=== PATIENT | female | born 1940 | race Caucasian/White ===

== ENCOUNTER 2024-02-13 15:49 | Observation (INO) ==
[2024-02-13 16:48] LABS: Basophils # (auto) 0.07 K/uL (0.00-0.20); Basophils % (auto) 0.9 %; Eosinophils # (auto) 0.18 K/uL (0.00-0.50); Eosinophils % (auto) 2.4 %; Hematocrit (blood only) 42.5 % (37.0-47.0); Hemoglobin 14.6 g/dl (12.0-16.0); Immature Granulocytes # (auto) 0.02 K/uL (0.01-0.20); Immature Granulocytes % (auto) 0.3 %; Lymphocytes # (auto) 2.37 K/uL (1.20-3.40); Mean Corpuscular Hemoglobin 29.5 pg (25.0-34.0); Mean Corpuscular Hgb Conc 34.4 g/dL (32.0-36.0); Mean Corpuscular Volume 85.9 fL (80.0-100.0); Mean Platelet Volume 9.6 fL (9.4-12.4); Monocytes # (auto) 0.55 K/uL (0.11-0.59); Monocytes % (auto) 7.2 %; Neutrophils # (auto) 4.46 K/uL (1.40-6.50); Neutrophils % (auto) 58.2 %; Platelet Count 305 K/uL (130-400); RDW Coefficient of Variation 13.2 % (11.5-14.5); RDW Standard Deviation 41.1 fL (36.4-46.3); Red Blood Count 4.95 M/uL (4.20-5.40); White Blood Count 7.65 K/ul (4.8-10.8)
--- NOTE | 2024-02-13 16:56 | CT Scan Report ---
CT head/brain wo con CLINICAL HISTORY: ams Technique: Contiguous axial CT images of the head were acquired from the base of the skull to the jacky elham without intravenous contrast administration. Images were viewed in brain, subdural and bone [facility]. Automated dose lowering techniques and/or adjustment according to patient size were utilized for this exam. Comparison: None available at the time of this dictation. Findings: The ventricles, basal cisterns, and cerebral sulci are normal. There is no acute intracranial hemorrh age or evidence of acute territorial infarction. Neither mass effect, shift of the midline structures , nor abnormal extra-axial fluid collections are shown. Imaged portions of the paranasal sinuses and mastoid air cells are clear. The orbits appear normal. There are no acute fractures of the calvaria or scalp swelling. Impression: No acute intracranial hemorrhage, no evidence of acute territorial infarction or other acute intracra nial disease process. ACT 112: Negative or not required by law. Electronically signed by: Saleem Prabhakar M.D. 02/13/2024 4:55 PM
[2024-02-13 17:15] LABS: Partial Thromboplastin Time 27 Seconds (21-31); Prothrombin Time 10.9 Seconds (9.0-12.0)
[2024-02-13 17:16] LABS: Troponin I High Sensitivity 3.4 pg/ml (0-14)
[2024-02-13 17:17] LABS: Albumin Level 3.9 gm/dl (3.4-5.0); BUN Creatinine Ratio 24.7 (10-20); Bilirubin,Total 0.6 mg/dl (0.2-1.0); Calcium 9.6 mg/dl (8.6-10.3); Creatinine Clr Calc Pharmacy 48.4 ml/min; Est GFR (African American) 72.4 ml/min; Est GFR (Non-African American) 62.5 ml/min; Potassium 4.2 mmol/L (3.5-5.1); Total Protein 6.5 gm/dl (6.0-8.3)
[2024-02-13 17:24] LABS: Bilirubin Direct 0.1 mg/dl (0-0.2)
--- NOTE | 2024-02-13 17:36 | XRay Report ---
XR chest 1V portable CLINICAL HISTORY: Sepsis TECHNIQUE: Single frontal radiograph of the chest was obtained. Comparison: Comparison is made to chest radiograph 12/23/2021 FINDINGS: No lines and tubes are seen. The cardiomediastinal silhouette is normal. The lungs are clear. No evid ence of pleural effusion or pneumothorax. IMPRESSION: No acute abnormalities and in particular no radiographic evidence of pneumonia. ACT 112: Negative or not required by law. Electronically signed by: Saleem Prabhakar M.D. 02/13/2024 5:35 PM
[2024-02-13 17:51] LABS: Base Excess VBG 4.8 mEq/L; HCO3 VBG 30 mmol/L; Oxygen Saturation VBG < 60.0 %; PCO2 VBG 48 mmHg (38-50); PO2 VBG < 20 mmHg; pH VBG 7.41 (7.36-7.41)
[2024-02-13 18:25] LABS: Appearance Urine Clear (Clear); Bacteria Urine Automated 4+ (None Seen); Bilirubin Urine Negative (Negative); Blood Urine Negative (Negative); Cast Urine Automated 0-2 /lpf (0-2); Color Urine Yellow; Epithelial Cell Urine Auto 0-2 /hpf (0-2); Glucose Urine UA 1+ (Negative); Ketones Urine Negative (Negative); Leukocyte Esterase Urine 1+ (Negative); Nitrite Urine Positive (Negative); Protein Urine Negative (Negative); RBC Urine Automated 0-2 /hpf (0-2); Specific Gravity Urine 1.013 (1.000-1.030); Urobilinogen Urine Negative (Negative); WBC Urine Automated >50 /hpf (0-5); pH Urine 8.5 (4.5-7.5)
[2024-02-13] MEDS: cefTRIAXone SODIUM 2,000 MG/50 ML BAG IV STA (19:10)
[2024-02-13] MEDS: LORazepam 1 MG/1 ML SYR ED Inj Use ONE (19:56)
[2024-02-13] MEDS ORDERED: HALOPERIDOL LACTATE 5 MG/ML 1 ML VIAL IM PRN ×2 (20:12→21:42)
[2024-02-13] MEDS: HALOPERIDOL LACTATE 5 MG/ML 1 ML VIAL IM STA ×2 (20:24→21:09)
[2024-02-13] MEDS: LORazepam 2 MG/1 ML VIAL IM STA ×2 (20:27→21:08)
--- NOTE | 2024-02-13 21:13 | History & Physical Report ---
Date of Service February 13, 2024 Assessment & Plan (1) Delirium: Plan: Possible beginning dementia as per family Secondary to complicated UTI, no sepsis for now hypertension, elevated secondary to agitation hyperlipidemia, on statin Rx DM2 on oral medications, suboptimal control as of recent outpatient hemoglobin A1c of 13 this month Admit to medical telemetry Urine CS, ceftriaxone Haldol as needed agitation not responsive to behavioral management Basal insulin, ISS BG goal 1 10-1 40, carb count coverage PT OT eval DVT prophylaxis. SCDs DNR as per patient's prior directives as per son /POA, Mr. Sanam Joyce. He requests updates from providers through [phone]. Text document was generated using [employer] voice recognition software. It may contain grammatical or spelling errors. Kindly contact undersigned for clarification of any documentation item in question. History of Present Illness Chief Complaint: Confusion as per records Primary Care Provider: Savana Ogden PA-C History obtained from patient, family, and records. Limited history from patient secondary to agitation. Medical history significant for hypertension, hyperlipidemia, GERD, DM2 on oral medications, possible dementia as per family. Patient drove to PCPs office multiple times this week asking questions and looking confused. Complaining of headache symptoms as per outpatient notes. Patient directed to ER for evaluation. Patient unable to answer questions regarding chest pain, SOB, abdominal, flank pain due to increased agitation. IV ceftriaxone administered at the ER Medical History as above Surgical History : Breast lesion excision, cholecystectomy, BTL, tonsillectomy Family History : Breast cancer, DM, COPD, kidney cancer, stomach cancer Personal/Social history : Non-smoker, occasional EtOH intake, lives home with caregiver support Allergies Allergy/AdvReac Type Severity Reaction Status Date / Time ranitidine Allergy Intermediate Rash Verified 02/13/24 17:57 sulfamethoxazole Allergy Intermediate Rash Verified 02/13/24 17:57 [From Bactrim] trimethoprim [From Bactrim] Allergy Intermediate Rash Verified 02/13/24 17:57 mold Allergy Unknown Unknown Verified 02/13/24 17:57 pine nut Allergy Unknown Unknown Verified 02/13/24 17:57 atorvastatin AdvReac Intermediate BODY Verified 02/13/24 17:57 ACHES/NAUSEA empagliflozin AdvReac Intermediate Rash Verified 02/13/24 17:57 [From Jardiance] sitagliptin [From Januvia] AdvReac Intermediate Rash Verified 02/13/24 17:57 simvastatin AdvReac Unknown BODY Verified 02/13/24 17:57 ACHES/NAUSEA Home Medications Medication Instructions Recorded Confirmed Type lactobacillus combination no.4 3 3,000 mmu cells PO QAM 11/18/18 02/13/24 History billion cell capsule (Probiotic) metformin 500 mg tablet,extended 1,000 mg PO QAM 11/18/18 02/13/24 History release 24 hr multivitamin (Multiple Vitamins 1 tab PO QAM 11/18/18 02/13/24 History tablet) omega 3 350 mg-dha 235 mg-epa 90 1 cap PO QAM 11/18/18 02/13/24 History mg-fish oil 597 mg capsule,delay rel (Clive-3) omeprazole 20 mg capsule,delayed 20 mg PO DAILY 11/18/18 02/13/24 History release rosuvastatin 20 mg tablet 20 mg PO QAM 11/18/18 02/13/24 History aspirin 81 mg tablet,delayed 81 mg PO DAILY 12/23/21 02/13/24 History release insulin glargine 100 unit/mL (3 10 unit subcut HS 12/23/21 02/13/24 History mL) subcutaneous pen (Lantus Solostar U-100 Insulin) calcium carbonate 600 mg-vitamin 1 tab PO DAILY 02/13/24 02/13/24 History D3 5 mcg (200 unit) tablet (Calcium 600 + D(3)) cetirizine 10 mg tablet (Zyrtec) 10 mg PO QAM 02/13/24 02/13/24 History clotrimazole 1 % topical cream 1 applic topical BID PRN Skin 02/13/24 02/13/24 History Irritation dapagliflozin propanediol 10 mg 10 mg PO QAM 02/13/24 02/13/24 History tablet (Farxiga) metoprolol tartrate 25 mg tablet 25 mg PO QAM 02/13/24 02/13/24 History triamcinolone acetonide 0.1 % 1 applic topical BID PRN Skin 02/13/24 02/13/24 History topical cream Irritation Past Med/Surg History Problem List (Updated 02/14/24 @ 08:51 by Jonny Brandon MD) Delirium Altered mental status (Acute) COVID-19 (Acute) Medical History No pertinent family history HTN (hypertension) Diabetes Arthritis Surgical History No pertinent past surgical history Family History Other Diabetes Heart disease Hypertension Social History Smoking Status: Never smoker Hx Alcohol Use: Yes Alcohol type: beer Hx Substance Use: No Preferred Language: Andorran Communication Ability: Effective Material Handling Technician Required: No Beliefs That Will Affect Care: None Current Living Situation: Alone Current Living Situation Comment: allegedly at home Feels Safe at Home: Yes Safety Concerns: Feels Safe At This Time Assistive Devices: Glasses Assistive Devices Comment: reading glasses Review of Systems Review of Systems: Could not be reliably obtained secondary to agitated state Physical Exam Physical Exam: GENERAL: Agitated, no respiratory distress SKIN: Normal color, warm HEENT: Sunshine palpebral conjunctivae, no ptosis, dry buccal mucosa NECK : Supple, no tenderness CHEST : CTA, no tenderness HEART : RRR, no obvious murmurs ABDOMEN: Some distention, nontender EXTREMITIES : No LE swelling/tenderness, no other conspicuous deformities noted NEUROLOGIC : Agitated, no facial asymmetry, no other gross focality Results & Data Results & Data Vital Signs (Past 12 Hours) Vital Signs Temp Pulse Pulse Resp BP BP Pulse Ox 02/13/24 21:00 101 H 19 163/92 H 93 02/13/24 19:30 70 20 153/87 H 97 02/13/24 18:16 156/84 H 02/13/24 17:48 20 99 02/13/24 17:45 137/103 H 02/13/24 17:45 97 02/13/24 17:42 97 02/13/24 17:33 66 23 95 02/13/24 17:30 157/103 H 02/13/24 17:12 72 20 02/13/24 17:09 68 19 02/13/24 16:54 71 23 02/13/24 16:44 72 20 154/78 H 98 02/13/24 16:44 75 19 98 02/13/24 16:36 71 17 02/13/24 16:30 154/78 H 02/13/24 16:15 151/77 H 02/13/24 16:12 71 17 98 02/13/24 16:03 70 16 98 02/13/24 16:00 68 02/13/24 16:00 168/88 H 02/13/24 16:00 168/88 H 02/13/24 15:57 72 20 168/88 H 98 02/13/24 15:57 98 02/13/24 15:53 36.5 C 95 H 18 154/100 H 98 O2 Del Method 02/13/24 21:00 Room Air 02/13/24 19:30 Room Air 02/13/24 18:16 02/13/24 17:48 02/13/24 17:45 02/13/24 17:45 02/13/24 17:42 02/13/24 17:33 02/13/24 17:30 02/13/24 17:12 02/13/24 17:09 02/13/24 16:54 02/13/24 16:44 Room Air 02/13/24 16:44 Room Air 02/13/24 16:36 02/13/24 16:30 02/13/24 16:15 02/13/24 16:12 02/13/24 16:03 02/13/24 16:00 02/13/24 16:00 02/13/24 16:00 02/13/24 15:57 Room Air 02/13/24 15:57 Room Air 02/13/24 15:53 Room Air Laboratory Results Laboratory Results WBC 7.65 K/ul (4.8-10.8) 02/13/24 16:25 RBC 4.95 M/uL (4.20-5.40) 02/13/24 16:25 Hgb 14.6 g/dl (12.0-16.0) 02/13/24 16:25 Hct 42.5 % (37.0-47.0) 02/13/24 16:25 MCV 85.9 fL (80.0-100.0) 02/13/24 16:25 MCH 29.5 pg (25.0-34.0) 02/13/24 16:25 MCHC 34.4 g/dL (32.0-36.0) 02/13/24 16:25 RDW Std Deviation 41.1 fL (36.4-46.3) 02/13/24 16:25 RDW Coeff of Jaswant 13.2 % (11.5-14.5) 02/13/24 16:25 Plt Count 305 K/uL (130-400) 02/13/24 16:25 MPV 9.6 fL (9.4-12.4) 02/13/24 16:25 Immature Gran % (Auto) 0.3 % 02/13/24 16:25 Neut % (Auto) 58.2 % 02/13/24 16:25 Lymph % (Auto) 31.0 % 02/13/24 16:25 [place] % (Auto) 7.2 % 02/13/24 16:25 Eos % (Auto) 2.4 % 02/13/24 16:25 Baso % (Auto) 0.9 % 02/13/24 16:25 Neut # (Auto) 4.46 K/uL (1.40-6.50) 02/13/24 16:25 Lymph # (Auto) 2.37 K/uL (1.20-3.40) 02/13/24 16:25 [place]house # (Auto) 0.55 K/uL (0.11-0.59) 02/13/24 16:25 Eos # (Auto) 0.18 K/uL (0.00-0.50) 02/13/24 16:25 Baso # (Auto) 0.07 K/uL (0.00-0.20) 02/13/24 16:25 Immature Gran # (Auto) 0.02 K/uL (0.01-0.20) 02/13/24 16:25 PT 10.9 Seconds (9.0-12.0) 02/13/24 16:25 INR 1.0 (0.9-1.1) 02/13/24 16: APTT 27 Seconds (21-31) 02/13/24 16: PTT Ratio 1.0 02/13/24 16: VBG pH 7.41 (7.36-7.41) 02/13/24 17: VBG pCO2 48 mmHg (38-50) 02/13/24 17: VBG pO2 < 20 mmHg 02/13/24 17: VBG HCO3 30 mmol/L 02/13/24 17:26 VBG O2 Saturation < 60.0 % 02/13/24 17:26 VBG Base Excess 4.8 mEq/L 02/13/24 17:26 Sodium 138 mmol/L (136-145) 02/13/24 16:25 Potassium 4.2 mmol/L (3.5-5.1) 02/13/24 16:25 Chloride 105 mmol/L (98-107) 02/13/24 16:25 Carbon Dioxide 26 mmol/L (21-32) 02/13/24 16:25 Anion Gap 7 (3-11) 02/13/24 16:25 BUN 21 mg/dl (6-23) 02/13/24 16:25 Creatinine 0.85 mg/dl (0.6-1.2) 02/13/24 16:25 Est Cr Clr Drug Dosing 48.4 ml/min 02/13/24 16:25 Est GFR ( Amer) 72.4 ml/min 02/13/24 16:25 Est GFR (Non-Af Amer) 62.5 ml/min 02/13/24 16:25 BUN/Creatinine Ratio 24.7 (10-20) H 02/13/24 16:25 Glucose 191 mg/dl (70-99(Fasting)) H 02/13/24 16:25 POC Glucose 164 mg/dl (70-99) H 02/13/24 16:18 Lactate 1.4 mmol/L (0.4-2.0) 02/13/24 17:26 Calcium 9.6 mg/dl (8.6-10.3) 02/13/24 16:25 Magnesium 2.0 mg/dl (1.7-2.4) 02/13/24 16:25 Total Bilirubin 0.6 mg/dl (0.2-1.0) 02/13/24 16:25 Direct Bilirubin 0.1 mg/dl (0-0.2) 02/13/24 16:25 AST 21 U/L (13-39) 02/13/24 16:25 ALT 21 U/L (7-52) 02/13/24 16:25 Alkaline Phosphatase 85 U/L (34-104) 02/13/24 16:25 Ammonia 11.0 umol/L (18-72) L 02/13/24 17:26 Troponin I High Sens 3.4 pg/ml (0-14) 02/13/24 16:25 Total Protein 6.5 gm/dl (6.0-8.3) 02/13/24 16:25 Albumin 3.9 gm/dl (3.4-5.0) 02/13/24 16:25 Procalcitonin 0.07 ng/ml (0-0.5) 02/13/24 16:25 Urine Color Yellow 02/13/24 18:05 Urine Appearance Clear (Clear) 02/13/24 18:05 Urine pH 8.5 (4.5-7.5) H 02/13/24 18:05 Ur Specific [place] 1.013 (1.000-1.030) 02/13/24 18:05 Urine Protein Negative (Negative) 02/13/24 18:05 Urine Glucose (UA) 1+ (Negative) H 02/13/24 18:05 Urine Ketones Negative (Negative) 02/13/24 18:05 Urine Blood Negative (Negative) 02/13/24 18:05 Urine Nitrite Positive (Negative) A 02/13/24 18:05 Urine Bilirubin Negative (Negative) 02/13/24 18:05 Urine Urobilinogen Negative (Negative) 02/13/24 18:05 Ur Leukocyte Esterase 1+ (Negative) H 02/13/24 18:05 Urine WBC (Auto) >50 /hpf (0-5) H 02/13/24 18:05 Urine RBC (Auto) 0-2 /hpf (0-2) 02/13/24 18:05 U Hyaline Cast (Auto) 0-2 /lpf (0-2) 02/13/24 18:05 U Epithel Cells (Auto) 0-2 /hpf (0-2) 02/13/24 18:05 Urine Bacteria (Auto) 4+ (None Seen) H 02/13/24 18:05 Impressions Chest X-Ray 02/13/24 16:31 XR chest 1V portable CLINICAL HISTORY: Sepsis TECHNIQUE: Single frontal radiograph of the chest was obtained. Comparison: Comparison is made to chest radiograph 12/23/2021 FINDINGS: No lines and tubes are seen. The cardiomediastinal silhouette is normal. The lungs are clear. No evidence of pleural effusion or pneumothorax. IMPRESSION: No acute abnormalities and in particular no radiographic evidence of pneumonia. ACT 112: Negative or not required by law. Electronically signed by: Saleem Prabhakar M.D. 02/13/2024 5:[address] 02/13/24 16:31 CT head/brain wo con CLINICAL HISTORY: ams Technique: Contiguous axial CT images of the head were acquired from the base of the skull to the vertex without intravenous contrast administration. Images were viewed in brain, subdural and bone windows. Automated dose lowering techniques and/or adjustment according to patient size were utilized for this exam. Comparison: None available at the time of this dictation. Findings: The ventricles, basal cisterns, and cerebral sulci are normal. There is no acute intracranial hemorrhage or evidence of acute territorial infarction. Neither mass effect, shift of the midline structures, nor abnormal extra-axial fluid collections are shown. Imaged portions of the paranasal sinuses and mastoid air cells are clear. The orbits appear normal. There are no acute fractures of the calvaria or scalp swelling. Impression: No acute intracranial hemorrhage, no evidence of acute territorial infarction or other acute intracranial disease process. ACT 112: Negative or not required by law. Electronically signed by: Saleem Prabhakar M.D. 02/13/2024 4:55 PM Diagnostic Findings EKG as per my interpretation : Rate 65, NSR, normal axis, 1 AVB, no ischemia
--- NOTE | 2024-02-13 21:17 | Emergency Department Note ---
History of Present Illness General Chief complaint: Altered Mental Status Stated complaint: ALTERED MENTAL STATUS Time Seen by Provider: 02/13/24 16:30 History of Present Illness Provider complaint: Altered mental status confusion 83-year-old female was brought in by from her PCPs office for altered mental status and confusion. Patient states she is not sure why she is here. Family arrived and states that the patient is confused and should not be driving. No recent falls. No chest pain difficulty breathing nausea vomiting or diarrhea. Home Medications Medication Instructions Recorded Confirmed Type lactobacillus combination no.4 3 3,000 mmu cells PO QAM 11/18/18 02/13/24 History billion cell capsule (Probiotic) metformin 500 mg tablet,extended 1,000 mg PO QAM 11/18/18 02/13/24 History release 24 hr multivitamin (Multiple Vitamins 1 tab PO QAM 11/18/18 02/13/24 History tablet) omega 3 350 mg-dha 235 mg-epa 90 1 cap PO QAM 11/18/18 02/13/24 History mg-fish oil 597 mg capsule,delay rel (Bryan-3) omeprazole 20 mg capsule,delayed 20 mg PO DAILY 11/18/18 02/13/24 History release rosuvastatin 20 mg tablet 20 mg PO QAM 11/18/18 02/13/24 History aspirin 81 mg tablet,delayed 81 mg PO DAILY 12/23/21 02/13/24 History release insulin glargine 100 unit/mL (3 10 unit subcut HS 12/23/21 02/13/24 History mL) subcutaneous pen (Lantus Solostar U-100 Insulin) calcium carbonate 600 mg-vitamin 1 tab PO DAILY 02/13/24 02/13/24 History D3 5 mcg (200 unit) tablet (Calcium 600 + D(3)) cetirizine 10 mg tablet (Zyrtec) 10 mg PO QAM 02/13/24 02/13/24 History clotrimazole 1 % topical cream 1 applic topical BID PRN Skin 02/13/24 02/13/24 History Irritation dapagliflozin propanediol 10 mg 10 mg PO QAM 02/13/24 02/13/24 History tablet (Farxiga) metoprolol tartrate 25 mg tablet 25 mg PO QAM 02/13/24 02/13/24 History triamcinolone acetonide 0.1 % 1 applic topical BID PRN Skin 02/13/24 02/13/24 History topical cream Irritation Allergies Allergy/AdvReac Type Severity Reaction Status Date / Time ranitidine Allergy Intermediate Rash Verified 02/13/24 17:57 sulfamethoxazole Allergy Intermediate Rash Verified 02/13/24 17:57 [From Bactrim] trimethoprim [From Bactrim] Allergy Intermediate Rash Verified 02/13/24 17:57 mold Allergy Unknown Unknown Verified 02/13/24 17:57 pine nut Allergy Unknown Unknown Verified 02/13/24 17:57 atorvastatin AdvReac Intermediate BODY Verified 02/13/24 17:57 ACHES/NAUSEA empagliflozin AdvReac Intermediate Rash Verified 02/13/24 17:57 [From Jardiance] sitagliptin [From Januvia] AdvReac Intermediate Rash Verified 02/13/24 17:57 simvastatin AdvReac Unknown BODY Verified 02/13/24 17:57 ACHES/NAUSEA Past Med/Surg History Problem List (Updated 02/13/24 @ 21:22 by Cayden Herrmann MD) Altered mental status (Acute) COVID-19 (Acute) Medical History No pertinent family history HTN (hypertension) Diabetes Arthritis Surgical History No pertinent past surgical history Family History Other Diabetes Heart disease Hypertension Social History Smoking Status: Unknown if ever smoked Feels Safe at Home: Yes Physical Exam Vital Signs Vital Signs - 24 hr 02/13/24 15:53 02/13/24 15:57 02/13/24 15:57 Temperature 36.5 C Temperature Source Oral Pulse Rate 95 H Pulse Rate [Apical] 72 Pulse Rate from SpO2 Sensor Respiratory Rate 18 20 Respiratory Effort / Characteristics Non-Labored Spontaneous Non-Labored Spontaneous Respiratory Depth Normal Normal Respiratory Pattern Regular Regular Blood Pressure 154/100 H Blood Pressure [Left Arm] 168/88 H Blood Pressure Mean 118 Blood Pressure Mean [Left Arm] 114 Pulse Oximetry 98 98 98 Oxygen Delivery Method Room Air Room Air Room Air Sepsis Recent Fever Within 48 Hours No Sepsis New/Unexplained Change in Mental Status Yes Sepsis Action Taken by Nursing No Action Required 02/13/24 16:00 02/13/24 16:00 02/13/24 16:00 Temperature Temperature Source Pulse Rate 68 Pulse Rate [Apical] Pulse Rate from SpO2 Sensor Respiratory Rate Respiratory Effort / Characteristics Respiratory Depth Respiratory Pattern Blood Pressure 168/88 H 168/88 H Blood Pressure [Left Arm] Blood Pressure Mean 121 121 Blood Pressure Mean [Left Arm] Pulse Oximetry Oxygen Delivery Method Sepsis Recent Fever Within 48 Hours Sepsis New/Unexplained Change in Mental Status Sepsis Action Taken by Nursing 02/13/24 16:03 02/13/24 16:12 02/13/24 16:15 Temperature Temperature Source Pulse Rate 70 71 Pulse Rate [Apical] Pulse Rate from SpO2 Sensor 72 71 Respiratory Rate 16 17 Respiratory Effort / Characteristics Respiratory Depth Respiratory Pattern Blood Pressure 151/77 H Blood Pressure [Left Arm] Blood Pressure Mean 99 Blood Pressure Mean [Left Arm] Pulse Oximetry 98 98 Oxygen Delivery Method Sepsis Recent Fever Within 48 Hours Sepsis New/Unexplained Change in Mental Status Sepsis Action Taken by Nursing 02/13/24 16:30 02/13/24 16:36 02/13/24 16:44 Temperature Temperature Source Pulse Rate 71 75 Pulse Rate [Apical] Pulse Rate from SpO2 Sensor Respiratory Rate 17 19 Respiratory Effort / Characteristics Respiratory Depth Respiratory Pattern Blood Pressure 154/78 H Blood Pressure [Left Arm] Blood Pressure Mean 107 Blood Pressure Mean [Left Arm] Pulse Oximetry 98 Oxygen Delivery Method Room Air Sepsis Recent Fever Within 48 Hours Sepsis New/Unexplained Change in Mental Status Sepsis Action Taken by Nursing 02/13/24 16:44 02/13/24 16:54 02/13/24 17:09 Temperature Temperature Source Pulse Rate 71 68 Pulse Rate [Apical] 72 Pulse Rate from SpO2 Sensor Respiratory Rate 20 23 19 Respiratory Effort / Characteristics Non-Labored Spontaneous Respiratory Depth Normal Respiratory Pattern Regular Blood Pressure Blood Pressure [Left Arm] 154/78 H Blood Pressure Mean Blood Pressure Mean [Left Arm] 103 Pulse Oximetry 98 Oxygen Delivery Method Room Air Sepsis Recent Fever Within 48 Hours Sepsis New/Unexplained Change in Mental Status Sepsis Action Taken by Nursing 02/13/24 17:12 02/13/24 17:30 02/13/24 17:33 Temperature Temperature Source Pulse Rate 72 66 Pulse Rate [Apical] Pulse Rate from SpO2 Sensor 66 Respiratory Rate 20 23 Respiratory Effort / Characteristics Respiratory Depth Respiratory Pattern Blood Pressure 157/103 H Blood Pressure [Left Arm] Blood Pressure Mean 144 Blood Pressure Mean [Left Arm] Pulse Oximetry 95 Oxygen Delivery Method Sepsis Recent Fever Within 48 Hours Sepsis New/Unexplained Change in Mental Status Sepsis Action Taken by Nursing 02/13/24 17:42 02/13/24 17:45 02/13/24 17:45 Temperature Temperature Source Pulse Rate Pulse Rate [Apical] Pulse Rate from SpO2 Sensor 70 62 Respiratory Rate Respiratory Effort / Characteristics Respiratory Depth Respiratory Pattern Blood Pressure 137/103 H Blood Pressure [Left Arm] Blood Pressure Mean 112 Blood Pressure Mean [Left Arm] Pulse Oximetry 97 97 Oxygen Delivery Method Sepsis Recent Fever Within 48 Hours Sepsis New/Unexplained Change in Mental Status Sepsis Action Taken by Nursing 02/13/24 17:48 02/13/24 18:16 02/13/24 19:30 Temperature Temperature Source Pulse Rate Pulse Rate [Apical] 70 Pulse Rate from SpO2 Sensor 70 Respiratory Rate 20 20 Respiratory Effort / Characteristics Non-Labored Respiratory Depth Normal Respiratory Pattern Regular Blood Pressure 156/84 H Blood Pressure [Left Arm] 153/87 H Blood Pressure Mean 125 Blood Pressure Mean [Left Arm] 109 Pulse Oximetry 99 97 Oxygen Delivery Method Room Air Sepsis Recent Fever Within 48 Hours Sepsis New/Unexplained Change in Mental Status Sepsis Action Taken by Nursing 02/13/24 21:00 Temperature Temperature Source Pulse Rate Pulse Rate [Apical] 101 H Pulse Rate from SpO2 Sensor Respiratory Rate 19 Respiratory Effort / Characteristics Respiratory Depth Respiratory Pattern Blood Pressure Blood Pressure [Left Arm] 163/92 H Blood Pressure Mean Blood Pressure Mean [Left Arm] 115 Pulse Oximetry 93 Oxygen Delivery Method Room Air Sepsis Recent Fever Within 48 Hours Sepsis New/Unexplained Change in Mental Status Sepsis Action Taken by Nursing Physical Exam HENT: Exam performed. - Head: Normocephalic and atraumatic. EYES: Conjunctivae and EOM are normal. Right eye exhibits no discharge. Left eye exhibits no discharge. No scleral icterus. NECK: Normal range of motion. Neck supple. No JVD present. CV: Normal rate, regular rhythm, normal heart sounds and intact distal pulses. There is no peripheral edema. Palpable radial pulses bue. PULM/CHEST: Effort normal and breath sounds normal. No respiratory distress. No stridor. no wheezes. no rales. ABD: The abdomen is soft. There is no tenderness. NEURO: Motor and sensation grossly intact. Patient is not oriented to person place or time. SKIN: Skin is warm and dry. He is not diaphoretic. Course Course 1630: The patient was evaluated in room C9. A complete history and physical exam was performed 184: Vital signs stable. Patient medically cleared. manager balance Raymond met with family friends who are at bedside. See his note. There is thought that the patient will be best served to be admitted for possible placement. [facility] Patient becoming increasingly agitated. Ativan ordered for the patient. Dr. Haley will be in shortly to evaluate the patient Administered Medications Discontinued Medications Haloperidol Lactate (Haloperidol Lactate 5 Mg/Ml 1 Ml Vial) 2 mg IM NOW STA Stop: 02/13/24 20:13 Last Admin: 02/13/24 20:24 Dose: 2 mg Documented By: SVETLANA Haloperidol Lactate (Haloperidol Lactate 5 Mg/Ml 1 Ml Vial) 2 mg IM NOW STA Stop: 02/13/24 21:02 Last Admin: 02/13/24 21:09 Dose: 2 mg Documented By: SVETLANA Ceftriaxone Sodium (Rocephin) 2,000 mg in 50 mls @ 100 mls/hr IV NOW STA Stop: 02/13/24 19:11 Last Infusion: 02/13/24 19:30 Dose: Infused Documented By: Admin: 02/13/24 19:10 Dose: 100 mls/hr Documented By: STUART Lorazepam (Lorazepam 2 Mg/1 Ml Vial) 1 mg IM NOW STA Stop: 02/13/24 19:52 Last Admin: 02/13/24 20:27 Dose: Not Given Documented By: SVETLANA Lorazepam (Lorazepam 1 Mg/1 Ml Syr Ed Inj Use) Confirm Administered Dose 1 mg .ROUTE .STK-MED ONE Stop: 02/13/24 19:54 Last Admin: 02/13/24 19:56 Dose: 1 mg Documented By: SVETLANA Lorazepam (Lorazepam 2 Mg/1 Ml Vial) 1 mg IM NOW STA Stop: 02/13/24 20:00 Last Admin: 02/13/24 21:08 Dose: Not Given Documented By: SVETLANA Medical Decision Making Medical Records Attestation: I reviewed the patient's medical records. External medical records reviewed. Patient was seen by Wayne Melchor today. According to his note patient has been coming more frequently and asking a lot of questions she was not know what day it was a month what month was she scored a 19 on an MMSE she did not know who the president was. According to his note the patient was disheveled. According to his note the patient referred to him as a "dumbass today" which his note refers to is as "unusual for her" Laboratory Data Attestation: I reviewed the patient's lab results. 02/13/24 16:25 02/13/24 16:25 Lab Results 02/13/24 02/13/24 02/13/24 Range/Units 16:18 16:25 17:26 WBC 7.65 (4.8-10.8) K/ul RBC 4.95 (4.20-5.40) M/uL Hgb 14.6 (12.0-16.0) g/dl Hct 42.5 (37.0-47.0) % MCV 85.9 (80.0-100.0) fL MCH 29.5 (25.0-34.0) pg MCHC 34.4 (32.0-36.0) g/dL RDW Std Deviation 41.1 (36.4-46.3) fL RDW Coeff of Jaswant 13.2 (11.5-14.5) % Plt Count 305 (130-400) K/uL MPV 9.6 (9.4-12.4) fL Immature Gran % (Auto) 0.3 % Neut % (Auto) 58.2 % Lymph % (Auto) 31.0 % [place] % (Auto) 7.2 % Eos % (Auto) 2.4 % Baso % (Auto) 0.9 % Neut # (Auto) 4.46 (1.40-6.50) K/uL Lymph # (Auto) 2.37 (1.20-3.40) K/uL [place] # (Auto) 0.55 (0.11-0.59) K/uL Eos # (Auto) 0.18 (0.00-0.50) K/uL Baso # (Auto) 0.07 (0.00-0.20) K/uL Immature Gran # (Auto) 0.02 (0.01-0.20) K/uL PT 10.9 (9.0-12.0) Seconds INR 1.0 (0.9-1.1) APTT 27 (21-31) Seconds PTT Ratio 1.0 VBG pH 7.41 (7.36-7.41) VBG pCO2 48 (38-50) mmHg VBG pO2 < 20 mmHg VBG HCO3 30 mmol/L VBG O2 Saturation < 60.0 % VBG Base Excess 4.8 mEq/L Sodium 138 (136-145) mmol/L Potassium 4.2 (3.5-5.1) mmol/L Chloride 105 (98-107) mmol/L Carbon Dioxide 26 (21-32) mmol/L Anion Gap 7 (3-11) BUN 21 (6-23) mg/dl Creatinine 0.85 (0.6-1.2) mg/dl Est Cr Clr Drug Dosing 48.4 ml/min Est GFR ( Amer) 72.4 ml/min Est GFR (Non-Af Amer) 62.5 ml/min BUN/Creatinine Ratio 24.7 H (10-20) Glucose 191 H (70-99(Fasting)) mg/dl POC Glucose 164 H (70-99) mg/dl Lactate 1.4 (0.4-2.0) mmol/L Calcium 9.6 (8.6-10.3) mg/dl Magnesium 2.0 (1.7-2.4) mg/dl Total Bilirubin 0.6 (0.2-1.0) mg/dl Direct Bilirubin 0.1 (0-0.2) mg/dl AST 21 (13-39) U/L ALT 21 (7-52) U/L Alkaline Phosphatase 85 (34-104) U/L Ammonia 11.0 L (18-72) umol/L Troponin I High Sens 3.4 (0-14) pg/ml Total Protein 6.5 (6.0-8.3) gm/dl Albumin 3.9 (3.4-5.0) gm/dl Procalcitonin 0.07 (0-0.5) ng/ml Urine Color Urine Appearance (Clear) Urine pH (4.5-7.5) Ur Specific [place] (1.000-1.030) Urine Protein (Negative) Urine Glucose (UA) (Negative) Urine Ketones (Negative) Urine Blood (Negative) Urine Nitrite (Negative) Urine Bilirubin (Negative) Urine Urobilinogen (Negative) Ur Leukocyte Esterase (Negative) Urine WBC (Auto) (0-5) /hpf Urine RBC (Auto) (0-2) /hpf U Hyaline Cast (Auto) (0-2) /lpf U Epithel Cells (Auto) (0-2) /hpf Urine Bacteria (Auto) (None Seen) 02/13/24 Range/Units 18:05 WBC (4.8-10.8) K/ul RBC (4.20-5.40) M/uL Hgb (12.0-16.0) g/dl Hct (37.0-47.0) % MCV (80.0-100.0) fL MCH (25.0-34.0) pg MCHC (32.0-36.0) g/dL RDW Std Deviation (36.4-46.3) fL RDW Coeff of Jaswant (11.5-14.5) % Plt Count (130-400) K/uL MPV (9.4-12.4) fL Immature Gran % (Auto) % Neut % (Auto) % Lymph % (Auto) % [place] % (Auto) % Eos % (Auto) % Baso % (Auto) % Neut # (Auto) (1.40-6.50) K/uL Lymph # (Auto) (1.20-3.40) K/uL [place] # (Auto) (0.11-0.59) K/uL Eos # (Auto) (0.00-0.50) K/uL Baso # (Auto) (0.00-0.20) K/uL Immature Gran # (Auto) (0.01-0.20) K/uL PT (9.0-12.0) Seconds INR (0.9-1.1) APTT (21-31) Seconds PTT Ratio VBG pH (7.36-7.41) VBG pCO2 (38-50) mmHg VBG pO2 mmHg VBG HCO3 mmol/L VBG O2 Saturation % VBG Base Excess mEq/L Sodium (136-145) mmol/L Potassium (3.5-5.1) mmol/L Chloride (98-107) mmol/L Carbon Dioxide (21-32) mmol/L Anion Gap (3-11) BUN (6-23) mg/dl Creatinine (0.6-1.2) mg/dl Est Cr Clr Drug Dosing ml/min Est GFR ( Amer) ml/min Est GFR (Non-Af Amer) ml/min BUN/Creatinine Ratio (10-20) Glucose (70-99(Fasting)) mg/dl POC Glucose (70-99) mg/dl Lactate (0.4-2.0) mmol/L Calcium (8.6-10.3) mg/dl Magnesium (1.7-2.4) mg/dl Total Bilirubin (0.2-1.0) mg/dl Direct Bilirubin (0-0.2) mg/dl AST (13-39) U/L ALT (7-52) U/L Alkaline Phosphatase (34-104) U/L Ammonia (18-72) umol/L Troponin I High Sens (0-14) pg/ml Total Protein (6.0-8.3) gm/dl Albumin (3.4-5.0) gm/dl Procalcitonin (0-0.5) ng/ml Urine Color Yellow Urine Appearance Clear (Clear) Urine pH 8.5 H (4.5-7.5) Ur Specific [place] 1.013 (1.000-1.030) Urine Protein Negative (Negative) Urine Glucose (UA) 1+ H (Negative) Urine Ketones Negative (Negative) Urine Blood Negative (Negative) Urine Nitrite Positive A (Negative) Urine Bilirubin Negative (Negative) Urine Urobilinogen Negative (Negative) Ur Leukocyte Esterase 1+ H (Negative) Urine WBC (Auto) >50 H (0-5) /hpf Urine RBC (Auto) 0-2 (0-2) /hpf U Hyaline Cast (Auto) 0-2 (0-2) /lpf U Epithel Cells (Auto) 0-2 (0-2) /hpf Urine Bacteria (Auto) 4+ H (None Seen) Imaging Data Attestation: I personally reviewed and interpreted this imaging study as follows: My Impression: Chest x-ray negative. Airway clear. No pneumothorax. No consolidation. No cardiomegaly or cephalization.. No free air under the diaphragm. No fractures of the skeletal structures. Radiologist's Impression: Chest X-Ray 02/13/24 16:31 XR chest 1V portable CLINICAL HISTORY: Sepsis TECHNIQUE: Single frontal radiograph of the chest was obtained. Comparison: Comparison is made to chest radiograph 12/23/2021 FINDINGS: No lines and tubes are seen. The cardiomediastinal silhouette is normal. The lungs are clear. No evidence of pleural effusion or pneumothorax. IMPRESSION: No acute abnormalities and in particular no radiographic evidence of pneumonia. ACT 112: Negative or not required by law. Electronically signed by: Saleem Prabhakar M.D. 02/13/2024 5:[address] 02/13/24 16:31 CT head/brain wo con CLINICAL HISTORY: ams Technique: Contiguous axial CT images of the head were acquired from the base of the skull to the vertex without intravenous contrast administration. Images were viewed in brain, subdural and bone windows. Automated dose lowering techniques and/or adjustment according to patient size were utilized for this exam. Comparison: None available at the time of this dictation. Findings: The ventricles, basal cisterns, and cerebral sulci are normal. There is no acute intracranial hemorrhage or evidence of acute territorial infarction. Neither mass effect, shift of the midline structures, nor abnormal extra-axial fluid collections are shown. Imaged portions of the paranasal sinuses and mastoid air cells are clear. The orbits appear normal. There are no acute fractures of the calvaria or scalp swelling. Impression: No acute intracranial hemorrhage, no evidence of acute territorial infarction or other acute intracranial disease process. ACT 112: Negative or not required by law. Electronically signed by: Saleem Prabhakar M.D. 02/13/2024 4:55 PM ECG Data Attestation: I personally reviewed and interpreted this ECG as follows: Rate (beats per minute): 64 Rhythm: + normal sinus ECG Intervals/blocks: + First degree AV block, + Normal QRS and + Normal QT-c ECG ST segments: + Normal ST segments [facility] Narrative 1630: The patient was evaluated in room C9. A complete history and physical exam was performed 184: Vital signs stable. Patient medically cleared. manager balance Raymond met with family friends who are at bedside. See his note. There is thought that the patient will be best served to be admitted for possible placement. Patient be admitted to the [facility] hospitalist team. 1999: Patient becoming increasingly agitated. Ativan ordered for the patient. Dr. Haley will be in shortly to evaluate the patient Impression & Plan Altered mental status Discharge Plan Visit Data Chief Complaint: Altered Mental Status Stated Complaint: ALTERED MENTAL STATUS ED Provider: Cayden Herrmann Discharge Problem: Altered mental status Patient Disposition: Being Evaluated by Hospitalist Forms Stand Alone Forms: My [facility] Prescriptions Prescriptions: No Action metformin 500 mg Tablet Extended Release 24 Hr 1,000 mg PO QAM rosuvastatin 20 mg tablet 20 mg PO QAM Probiotic 3 billion cell Capsule 3,000 mmu cells PO QAM multivitamin [Multiple Vitamins] Tablet 1 tab PO QAM Bryan-3 350 mg-235 mg- 90 mg-597 mg Capsule,Delayed Release(Dr/Ec) 1 cap PO QAM omeprazole 20 mg Capsule,Delayed Release(Dr/Ec) 20 mg PO DAILY Rx Instructions: MAY INCREASE TO BID IF NEEDED. aspirin [Aspir-81] 81 mg Tablet,Delayed Release (Dr/Ec) 81 mg PO DAILY insulin glargine [Lantus Solostar U-100 Insulin] 100 unit/mL (3 mL) insulin pen 10 unit SUBCUT HS cetirizine [Zyrtec] 10 mg Tablet 10 mg PO QAM calcium carbonate-vitamin D3 [Calcium 600 + D(3)] 600 mg-5 mcg (200 unit) Tablet 1 tab PO DAILY triamcinolone acetonide 0.1 % Cream 1 applic TOPICAL BID PRN (Reason: Skin Irritation) clotrimazole 1 % Cream 1 applic TOPICAL BID PRN (Reason: Skin Irritation) metoprolol tartrate 25 mg tablet 25 mg PO QAM Rx Instructions: PER [facility]--TOTAL DOSE 125 MG, PER EXT MED HX--ONLY MED FILLED IS THE 25 MG TABS. dapagliflozin propanediol [Farxiga] 10 mg tablet 10 mg PO QAM Referrals Referrals: Savana gOden PA-C [Primary Care Provider] - Discharge Problem: Altered mental status Qualifiers: Altered mental status type: unspecified Qualified Code(s): R41.82 - Altered mental status, unspecified
[2024-02-13] MEDS ORDERED: PROMETHAZINE HCL 6.25 MG in SODIUM CHLORIDE 0.9% 50 ML IV PRN (21:43)
[2024-02-13] MEDS ORDERED: ACETAMINOPHEN 325 MG TAB PO PRN (21:43)
[2024-02-13] MEDS: SODIUM CHLORIDE 0.9% 1,000 ML IV ONE (23:08)
[2024-02-13] MEDS: METOPROLOL TARTRATE 1 MG/ML VIAL IV STA (23:09)
[2024-02-13] MEDS ORDERED: GLUCAGON FOR INJ 1 MG VIAL SQ PRN (23:19)
[2024-02-13] MEDS ORDERED: CARBOHYDRATES FOR HYPOGLYCEMIA PO PRN (23:19)
[2024-02-13] MEDS ORDERED: DEXTROSE 50% 50 ML SYRINGE IV PRN (23:19)
[2024-02-13] MEDS ORDERED: GLUCOSE 10 TAB/TUBE PO PRN (23:19)
[2024-02-13] MEDS ORDERED: GLUCOSE 40% GEL 15 GM TUBE PO PRN (23:19)
[2024-02-13] MEDS: INSULIN ASPART PER UNIT CHARGE SC SCH (23:33)
--- OUTSIDE RECORDS SUMMARY | 2024-02-14 02:43 | External Medical Summary | Summary of Care ---
Author Name Unknown Organization [facility] Address [address] [address] Phone [phone] Care Team Providers Care Cow Trimmer Name Role Phone Savana Ogden PA-C Primary Care Provider [phone] Reason for Visit * Reason Comments Diabetes Follow-Up Diabetes Education Dosage Adjustment In Person (Anticoag Cl inic) Encounter Details Date Type Department Care Team (Late st Contact Info) Description 01/27/2024 2:40 PM EDT Office Visit Pharmacy, [facility] [address] [facility] [place] [address] Pharmacist1, [facility] [address] [facility] [place] [address] Type 2 diabetes mellitus with hemoglobin A1c goal of less than 8.0% ([facility])* Allergies Active Allergy Reactions Criticality Noted Date Comments Bactrim 11/29/2012 Rash Dust 03/27/2002 Sitagliptin 11/29/2016 Abdominal pain Empagliflozin 03/01/2019 rash Mold 01/01/2003 [place] 03/27/2002 Pollen 03/27/2002 Ranitidine Rash High 11/18/2018 Simvastatin 02/04/2006 Body aches and nausea documented as of this encounter (statuses as of 01/27/2024) Medications Medication Sig Dispensed Refills Start Date End Date Status OMEGA-3 1000 MG PO CAPS daily 0 03/03/2006 Active MULTIVITAMINS PO TABS None Entered Active CALCIUM + D 600-200 MG-UNIT PO TABS None Entered Active ASPIRIN 81 MG PO TABS 1 daily Active PROBIOTIC PRODUCT PO TABS 1 tablet daily 06/20/2012 Active cetirizine (ZYRTEC) 10 MG Tablet Take 1 Tablet by mouth in the morning. Active clotrimazole (LOTRIMIN) 1 % creamIndications:Vag inal candidiasis Apply topically to affected area 2 times a day. To affacted area for two weeks. 14 g 1 11/28/2019 Active Triamcinolone Acetonide 0.1 % External Cream (Aristocort)Indicati ons:Insect bite of throat, initial encounter Apply topically to affected area 2 times a day. To affected area. 60 g 5 04/12/2023 Active Metoprolol Tartrate 25 MG Oral Tablet (Lopressor)Indicatio ns:Hypertensive kidney disease with stage 3a chronic kidney disease (HCC),HTN, goal below 140/90,PAT (paroxysmal atrial tachycardia) ([facility]) Take 1 Tablet by mouth in the morning. With 100mg for a total of 125mg daily. 90 Tablet 3 10/26/2023 Active Omeprazole 20 MG Oral Capsule Delayed Release (PriLOSEC) TAKE ONE CAPSULE BY MOUTH DAILY , MAY INCREASE TO 2 CAPSULES PER DAY 180 Capsule 2 10/26/2023 Active Rosuvastatin Calcium 20 MG Oral Tablet (Crestor)Indications :Dyslipidemia, goal LDL below 100 Take 1 Tablet by mouth in the morning. 90 Tablet 3 10/26/2023 Active metFORMIN HCl ER 500 MG Oral Tablet Extended Release 24 Hour (Glucophage XR) Take 2 Tablets by mouth in the morning. 180 Tablet 3 10/26/2023 Active Zoster Vac Recomb Adjuvanted 50 MCG/0.5ML Intramuscular Suspension Reconstituted (Shingrix)Indication s:Need for shingles vaccine Inject 0.5 mL into a large muscle now and repeat dose in 60 to 180 days 1 Each 01/26/2024 Active Fantasy Buzzer w/Device KitIndications:Type 2 diabetes mellitus with stage 3a chronic kidney disease, without long-term current use of insulin (HCC) Use up to 4 times a day E11.9 1 Kit 01/26/2024 Active Fantasy Buzzer In Vitro Strip (Glucose Blood)Indications:Ty pe 2 diabetes mellitus with stage 3a chronic kidney disease, without long-term current use of insulin (HCC) Use up to 4 times a day E11.9 100 Strip 11 01/26/2024 Active Linsey Hoff 30GIndications:Type 2 diabetes mellitus with stage 3a chronic kidney disease, without long-term current use of insulin (HCC) Use up to 4 times a day 100 Each 3 01/26/2024 Active Rybelsus 3 MG Oral Tablet (Semaglutide) Take 1 tablet by mouth daily first thing in the morning. 30 Tablet 5 01/26/2024 Active documented as of this encounter (statuses as of 01/27/2024) Active Problems Problem Noted Date Diagnosed Date PAT (paroxysmal atrial tachycardia) 07/20/2022 Chronic kidney disease, stage 3a 11/25/2020 Overview: Per CKD protocol Type 2 diabetes mellitus wit h stage 3a chronic kidney disease 11/25/2020 Overview: Per CKD protocol Hypertensive kidney disease with stage 3a chronic kidney disease 05/26/2020 Overview: Per CKD protocol Gastroesophageal reflux disease without esophagi tis 01/08/2020 Type 2 diabetes mellitus wit h diabetic peripheral angiopathy without gangrene 10/23/2018 History of nonmelanoma skin cancer 09/26/2017 Overview: 2005 - BCC left forehead 2007 - BCC nasal tip History of positive PPD 03/18/2017 Type 2 diabetes mellitus wit h hemoglobin A1c goal of less than 8.0% 05/31/2016 HTN, goal below 140/90 09/22/2015 Overview: Per HTN Protocol #27. DYSLIPIDEMIA, GOAL LDL BELOW 100 06/26/2009 Overview: Per Lipid Taxonomy. Rosacea 03/27/2002 Allergic rhinitis documented as of this encounter (statuses as of 01/27/2024) Resolved Problems Problem Noted Date Diagnosed Date Resolved Date Type 2 diabetes mellitus wit h stage 1 chronic kidney disease, without long-term current use of insulin 07/20/2022 04/28/2023 Type 2 diabetes mellitus wit h stage 3a chronic kidney disease, without long-term current use of insulin 02/04/2022 02/25/2022 Hypertensive kidney disease with CKD stage III 10/03/2018 05/29/2020 Overview: Per CKD protocol Diabetes mellitus with stage 3 chronic kidney disease 10/25/2017 11/27/2020 Overview: Per CKD protocol #1 HTN, GOAL BELOW 140/80 03/06/201210/21 Overview: Per HTN Protocol #27. HTN, GOAL BELOW 130/80 08/13/200903/09 Overview: Per HTN Taxonomy. Type 2 diabetes mellitus wit h hemoglobin A1c goal of less than 7.0% 05/15/2009 05/31/2016 Overview: Per Diabetes Taxonomy. ICD-10 update of inactive term Disorder of gallbladder 05/07/200810/17 Benign neoplasm of colon 04/25/200707/2016 Overview: 10/15/11: hyperplastic polyp, sigmoid 5 mm--repeat 201604/21/07: hyperplastic polyps--repeat 3-5 years PPD positive 04/21/2007 03/18/2017 Type 2 diabetes mellitus wit h hemoglobin A1c goal of less than 7.0% 02/04/2006 05/15/2009 Overview: Per Diabetes Taxonomy. ICD-10 update of inactive term HTN, goal below 140/90 10/01/200508/13 Overview: Per HTN Taxonomy. ADVANCE DIRECTIVE INFORMATION 04/27/2005 11/27/2015 Overview: Yes, Patient instructed to provide copy of advance directive for provider to review and to be scanned into Electronic Medical Record. DIFFUS CYSTIC MASTOPATHY 06/2016 Mixed dyslipidemia 9 Overview: Per Lipid Taxonomy. Menopause 11/27/2015 Cataract 03/18/2017 History of cholecystectomy 0 11/27/2015 Overview: 2008 documented as of this encounter (statuses as of 01/27/2024) Immunizations Name Administration Dates Next Due COVID-19 mRNA, LNP-s, No Pre serve, 2-Dose Series (Pfizer) 09/30/2020,09/09/2020 Covid-19, Mrna, Lnp-s, Pf, B ivalent, 30 Mcg, IM, 12 yrs and above (Pfizer) 04/27/2022 H1N1 2009 Influenza, IM 05/30/2009 PPD 04/19/2007,04/28/2006 Pneumococcal Conjugate Vacc, 13 Valent (Prevnar) 05/31/2016 Pneumococcal Polysaccharide PPV23 (Pneumovax) 11/02/2005 Season Influenza, Quad, PF, Adjuvanted, 65+ Yrs, IM (FLUAD) 04/23/2020 Seasonal Influenza, PF, 6 M & above, IM , (FluLaval or Fluzone) 04/18/2018 Seasonal Influenza, Quadriva lent Hd (Fluzone Hd) 04/12/2023,04/27/2022,04/08/2021 Seasonal Influenza, Quadriva lent, No Preserve, IM 04/04/2017,04/07/2016,04/21/2015 Seasonal Influenza, Split, I IV3, With Preserve, Inj 04/22/2014,04/24/2013,04/05/2012,04/20,04/21/2010,04/09/2009,05/02/2008 ,04/19/2007,04/28/2006 Seasonal Influenza, Trivalen t, Adjuvanted, 65+ yrs 04/16/2019 TDAP (age 10 and older)(Boostrix) 06/26/2014 Varicella Zoster Vaccine (Adult) 03/15/2011 Zoster Vaccine Recombinant (Shingrix) ,06/06/2022(Deferred: Patient Refused),02/04/2022 documented as of this encounter Social History Tobacco Use Types Packs/Day Years Used Date Smoking Tobacco: Never Smokeless Tobacco: Never Alcohol Use Standard Drinks/Week Comments Yes 0 (1 standard drink = 0.6 oz pur e alcohol) occ AUDIT-C Answer Date Recorded Frequency of Alcohol Consumption 2-4 times a tue04/29/2020 Average Number of Drinks 1 or 2 020 Frequency of Binge Drinking Not asked 04/17 PHQ-2 Answer Date Recorded PHQ Adult Total Score 0 07/20/2022 Hunger Vital Sign Answer Date Recorded Within the past 12 months, y ou worried that your food would run out before you got the money to buy more. Never true 01/26/20 24 Within the past 12 months, t he food you bought just didn't last and you didn't have money to get more. Never true 01/26/2024 Childcare Answer Date Recorded Do you feel overwhelmed with taking care of a child, family member or friend? No 01/26/2024 Does your family need help f inding childcare? (Household - for ages 0-17 years) Not on file 01/26/2024 Clothing Answer Date Recorded Have you been unable to get clothing when it was really needed? No 01/26/2024 Is your family able to get c lothes or diapers when needed? (Household - for ages 0-17 years) Not on file 01/26/2024 Personal Safety Answer Date Recorded Do you feel unsafe or have concerns for your saf ety? No 01/26/2024 Do you have concerns for you r family's safety? (Household - for ages 0-17 years) Not on file 01/26/2024 Utilities Answer Date Recorded Do you have trouble paying y our heating, water, or electric bill? No 01/26/2024 Is your family able to pay t he heat, water, or electric bill? (Household - for ages 0-17 years) Not on file 01/26/2024 Does your family have access to good internet? (Household - for ages 0-17 years) Not on file 01/26/2024 Employment Status Answer Date Recorded Are you unemployed or without regular income? No 01/26/2024 Does the household have a re gular source of income? (Household - for ages 0-17 years) Not on file 01/26/2024 Social Connections Answer Date Recorded How often do you feel lonely or isolated from th ose around you? Never 01/26/2024 Financial Resource Strain Answer Date R ecorded Do you have any trouble payi ng for your medications, or do you think you might in the future? No 01/26/2024 Does your family have troubl e paying for medicine? (Household - for ages 0-17 years) Not on file 01/26/2024 Transportation Needs Answer Date Record ed Do you have trouble getting a ride to medical visits or work? (Adult - for ages 18 years and over) Not on file 01/26/2024 Does your family have a hard time getting a ride to doctors visits? (Household - for ages 0-17 years) Not on file 01/26/2024 Has lack of transportation k ept you from medical appointments, meetings, work, or from getting things needed for daily living? Check all that apply. No 01/26/2024 Do you (or your family) have trouble finding or paying for a ride (transportation)? (Household - for ages 0-17 years) Not on file 01/26/2024 Housing Stability Answer Date Recorded Do you currently live in a s helter or have no steady place to sleep at night? No 01/26/2024 Do you think you are at risk of becoming homeless? (Adult - for ages 18 years and over) Not on file 01/26/2024 Does your family worry about paying for your home or becoming homeless? (Household - for ages 0-17 years) Not on file 0 01/26/2024 Are you homeless or worried that you might be in the future? No 01/26/2024 Are you (or your family) cherri eless or worried that you might be in the future? (Household - for ages 0-17 years) Not on file Food Insecurity Answer Date Recorded Do you need food for this week? No 01/26/2024 Are you able to get enough f ood for your family? (Household - for ages 0-17 years) Not on file 01/26/2024 Does your family need food t his week? (Household - for ages 0-17 years) Not on file 01/26/2024 Do you always have enough fo od for your family? (Household - for ages 0-17 years) Not on file 01/26/2024 Sex and Gender Information Value Date Recorded Sex Assigned at Female 04/16/2019 10:17 AM EDT Gender Identity Female 04/16/2019 10:17 AM EDT Sexual Orientation Straight 04/16/2019 10 :17 AM EDT Job Start Date Occupation Industry Not on file Not on file Not on file documented as of this encounter Progress Notes * Giovani Nick RPh - 01/27/2024 3:08 PM EDT Patient to clinic for BG meter instruction. Ensured date and time were set correctly and performed successful control test. Taught navigation of BG meter menu, buttons, and reviewing BG results. Demonstrated proper BG fingerstick technique including insertion of the test strip into the meter, proper cleaning of the site, ideal locations on the finger to test, how to use lancing device, and draw blood sample into the test strip. Reviewed proper disposal of supplies, including sharps. Also reviewed best times to test BG and counseled on the importance of BG readings in the evaluation of BG trends and adjustment of medications. Giovani Pettit RPh, [facility] Clinical Pharmacist Medication Therapy Management Clinic 01/27/2024, 3:08 PM documented in this encounter Plan of Treatment Upcoming Encounters Date Type Department Care Team (Late st Contact Info) Description 04/30/2024 8:00 AM EDT Office Visit Family Practice [facility] [place] [address] [facility] [place] [address] Alin Savana JUDIT [facility] [address] [facility] [place] [address] Scheduled Procedures Name Priority Associated Diagnoses Date/Ti me COLONOSCOPY FLEXIBLE PROXIMA L DIAGNOSTIC Recall History of colonic polyps Health Maintenance Due Date Last Done Comments COVID-19 Vaccine (2022- season) 2023 04/27/2022, 09/30/2020, 09/09/2020 Depression Screening 07/20/2023 07/20/2022, 10/22/2015 (Discussed) Influenza Vaccine (FLU shot) (#1) 2024 04/12/2023, 04/27/2022, 04/08/2021, Additional history exists CKD HGB USE SMARTSET 69193 04/21/202404/21, 02/04/2022, 02/04/2022, Additional history exists CKD PHOS USE SMARTSET 87629 04/21/2024 10/0 11/2022, 11/12/2022, 11/30/2021, Additional history exists DTaP,Tdap,and Td Vaccines (2 - Td or Tdap) 06/26/2024 06/26/2014, 02/03/2004 HbA1c 07/28/2024 01/26/2024, 10/16, 04/21/2023, Additional history exists Diabetic Eye Exam 09/01/2024 09/01/2023, , 07/20/2022, Additional history exists Diabetic Foot Exam 09/01/2024 09/01/2023, 0 07/20/2022, 06/09/2021, Additional history exists Albumin/Creatinine Ratio 01/25/2025 024, 04/21/2023, 11/12/2022, Additional history exists Colonoscopy 03/30/2027 03/30/2022, 03/18, 10/25/2016, Additional history exists DXA Scan 05/24/2030 05/24/2023, 12/16, 12/07/2011, Additional history exists Pneumococcal Vaccine: 65+ Years Completed 05/31/2016, 11/02/2005 RETIRED - COLONOSCOPY-EVERY 5 YRS AGES 18-100 Discontinued 03/30/2022, 03/30/2022, 10/25/2016, Additional history exists Zoster Vaccines Completed 01/26/2024, 01/16, 03/15/2011 HPV (Gardasil) Vaccine Aged Out No lo nger eligible based on patient's age to complete this topic Hepatitis B Vaccine Aged Out No longe r eligible based on patient's age to complete this topic MENINGOCOCCAL (MENACTRA/MENVEO) Aged Out No longer eligible based on patient's age to complete this topic documented as of this encounter Medical Devices Not on filedocumented as of this encounter Visit Diagnoses Diagnosis Type 2 diabetes mellitus with hemoglobin A1c goal of less than 8.0% (HCC)- Primary documented in this encounter Advance Directives * Full Code (Latest Code Status on File) Date Activated Date Inactivated Comments 05/08/2008 10:46 AM 05/08/2008 5:20 PM * Full Code Date Activated Date Inactivated Comments 05/08/2008 7:41 AM 05/08/2008 10:46 AM Care Teams Cow Trimmer Relationship Specialty Start Date End Date October JUDIT [facility] [address] [place] [address] PCP - General Physician Post Office Manager 01/25/24 documented as of this encounter
--- OUTSIDE RECORDS SUMMARY | 2024-02-14 02:43 | External Medical Summary | Summary of Care ---
Author Name Unknown Organization [facility] Address [address] [facility] [address] Phone [phone] Care Team Providers Care Pipe Organ Installer Name Role Phone Savana Ogden PA-C Primary Care Provider [phone] Reason for Visit * Reason Onset Date Comments Test Results 01/26/2024 Encounter Details Date Type Department Care Team (Late st Contact Info) Description 01/26/2024 Telephone Family Practice [facility] [address] [place] [address] Savana Ogden PA-C [address] [facility] [place] [address] Test Results Allergies Active Allergy Reactions Criticality Noted Date Comments Bactrim 11/29/2012 Rash Dust 03/27/2002 Sitagliptin 11/29/2016 Abdominal pain Empagliflozin 03/01/2019 rash Mold 01/01/2003 Coal 03/27/2002 Pollen 03/27/2002 Ranitidine Rash High 11/18/2018 Simvastatin 02/04/2006 Body aches and nausea documented as of this encounter (statuses as of 01/26/2024) Medications Medication Sig Dispensed Refills Start Date [...] (HCC),HTN, goal below 140/90,PAT (paroxysmal atrial tachycardia) (HCC) Take 1 Tablet by mouth in the [...] to 180 days 1 Each 01/26/2024 Active [employer] Verio w/Device KitIndications:Type 2 diabetes mellitus with stage 3a chronic kidney disease, without long-term current use of insulin (HCC) Use up to 4 times a day E11.9 1 Kit 01/26/2024 Active StarriserTouch Verio In Vitro Strip (Glucose Blood)Indications:Ty pe 2 diabetes mellitus with stage 3a chronic kidney disease, without long-term current use of insulin (HCC) Use up to 4 times a day E11.9 100 Strip 11 01/26/2024 Active Linsey Grant Lancets 30GIndications:Type 2 diabetes mellitus with stage 3a chronic kidney disease, without long-term current use of insulin (HCC) Use up to 4 times a day 100 Each 3 01/26/2024 Active documented as of this encounter (statuses as of 01/26/2024) Active Problems Problem Noted Date Diagnosed Date [...] as of this encounter (statuses as of 01/26/2024) Resolved Problems Problem Noted Date Diagnosed Date [...] as of this encounter (statuses as of 01/26/2024) Immunizations Name Administration Dates Next Due COVID-19 mRNA, LNP-s, No Pre serve, 2-Dose Series ([employer] [facility]) 09/30/2020,09/09/2020 Covid-19, Mrna, Lnp-s, Pf, B ivalent, [...] on file documented as of this encounter Miscellaneous Notes * Telephone Encounter - Jayna Prieto MED RODRIGUEZ - 01/26/2024 1:09 PM EDT ----- Message from October Hien Ogden sent at 01/26/2024 1:01 PM EDT ----- Please call patient inform her we need to add an additional oral medication to lower her blood sugars INESSA. documented in this encounter Plan of Treatment Upcoming Encounters Date Type Department Care Team (Late st Contact Info) Description 04/30/2024 8:00 AM EDT Office Visit Family [facility] [place] [address] [facility] [place] [address] Savana Ogden PA-C [address] [facility] [place] [address] Scheduled Procedures Name Priority Associated Diagnoses Date/Ti me COLONOSCOPY FLEXIBLE PROXIMA L DIAGNOSTIC Recall History of colonic polyps Health Maintenance Due Date Last Done Comments COVID-19 Vaccine ( season) 2023 04/27/2022, 09/30/2020, 09/09/2020 Depression Screening 07/20/2023 07/20/2022, 10/22/2015 (Discussed) Influenza Vaccine (FLU shot) (#1) 2024 04/12/2023, 04/27/2022, 04/08/2021, Additional history exists Albumin/Creatinine Ratio 04/21/2024 023, 11/12/2022, 11/30/2021, Additional history exists CKD HGB USE SMARTSET 48641 04/21/202404/21, 02/04/2022, 02/04/2022, Additional history exists CKD PHOS USE SMARTSET 26619 04/21/202411/2022, 11/12/2022, 11/30/2021, Additional history exists HbA1c 04/26/2024 10/26/2023, 11/2022, 11/12/2022, Additional history exists DTaP,Tdap,and Td Vaccines (2 - Td or Tdap) 06/26/2024 06/26/2014, 02/03/2004 Diabetic Eye Exam 09/01/2024 09/01/2023, , 07/20/2022, Additional history exists Diabetic Foot Exam 09/01/2024 09/01/2023, 0 07/20/2022, 06/09/2021, Additional history exists Colonoscopy 03/30/2027 03/30/2022, 03/18, [...] Not on filedocumented as of this encounter Advance Directives * Full Code (Latest Code Status on File) Date Activated Date Inactivated Comments 05/08/2008 10:46 AM 05/08/2008 5:20 PM * Full Code Date Activated Date Inactivated Comments 05/08/2008 7:41 AM 05/08/2008 10:46 AM Care Teams Pipe Organ Installer Relationship Specialty Start Date End Date Savana Ogden PA-C [address] [place], [place] [address] PCP - General Physician Laundry Agent 01/25/24 documented as of this encounter
--- OUTSIDE RECORDS SUMMARY | 2024-02-14 02:43 | External Medical Summary ---
Author Name Unknown Address Unknown Organization K09:[facility] [place] [address] Laboratory Report Ordering Provider Test Date Status GUSTAVO TOWNSEND 02/13/2024 15:30:42 Final Observation Date Value Abnormality Reference (Units ) Status Glucose Point of Care 02/13/2024 15:30:42 240 Above high normal 70-120 (mg/dL) Final Performing Location [facility] [place] [address] [address]
--- OUTSIDE RECORDS SUMMARY | 2024-02-14 02:43 | External Medical Summary | Summary of Care ---
Author Name Unknown Organization [facility] [address] [facility] [address] Phone [phone] Care Team Providers Care Accounts Receivable Supervisor Name Role Phone Savana Ogden PA-C Primary Care Provider [phone] Reason for Visit * Reason Onset Date Comments Test Results 01/26/2024 Encounter Details Date Type Department Care Team (Late st Contact Info) Description 01/26/2024 Telephone Family Practice [facility] [address] [place] [address] Savana Ogden PA-C 200 [facility] [place] [address] Test Results Allergies Active Allergy Reactions Criticality Noted Date Comments Bactrim 11/29/2012 Rash Dust 03/27/2002 Sitagliptin 11/29/2016 Abdominal pain Empagliflozin 03/01/2019 rash Mold 01/01/2003 [place] 03/27/2002 Pollen 03/27/2002 Ranitidine Rash High 11/18/2018 Simvastatin 02/04/2006 Body aches and nausea documented as of this encounter (statuses as of 02/02/2024) Medications Medication Sig Dispensed Refills Start Date [...] the morning. Active clotrimazole (LOTRIMIN) 1 % creamIndications:Va ginal candidiasis Apply topically to affected area 2 times a day. To affacted area for two weeks. 14 g 1 11/28/2019 Active Triamcinolone Acetonide 0.1 % External Cream (Aristocort)Indicat ions:Insect bite of throat, initial encounter Apply topically to affected area 2 times a day. To affected area. 60 g 5 04/12/2023 Active Metoprolol Tartrate 25 MG Oral Tablet (Lopressor)Indicati ons:Hypertensive kidney disease with stage 3a chronic kidney [...] Active Rosuvastatin Calcium 20 MG Oral Tablet (Crestor)Indication s:Dyslipidemia, goal LDL below 100 Take 1 Tablet by mouth in the morning. 90 Tablet 3 10/26/2023 Active metFORMIN HCl ER 500 MG Oral Tablet Extended Release 24 Hour (Glucophage XR) Take 2 Tablets by mouth in the morning. 180 Tablet 3 10/26/2023 Active Zoster Vac Recomb Adjuvanted 50 MCG/0.5ML Intramuscular Suspension Reconstituted (Shingrix)Indicatio ns:Need for shingles vaccine Inject 0.5 mL into a large muscle now and repeat dose in 60 to 180 days 1 Each 01/26/2024 Active Fluent Home Verio w/Device KitIndications:Type 2 diabetes mellitus with stage 3a chronic kidney disease, without long-term current use of insulin (HCC) Use up to 4 times a day E11.9 1 Kit 01/26/2024 Active PaintZenTouch Verio In Vitro Strip (Glucose Blood)Indications:T ype 2 diabetes mellitus with stage 3a chronic kidney disease, without long-term current use of insulin (HCC) Use up to 4 times a day E11.9 100 Strip 11 01/26/2024 Active Linsey Grant Dougbritt 30GIndications:Type 2 diabetes mellitus with stage 3a chronic kidney disease, without long-term current use of insulin (HCC) Use up to 4 times a day 100 Each 01/26/2024 Active Dapagliflozin Propanediol 10 MG Oral Tablet (Farxiga) Take 1 Tablet by mouth in the morning. 30 Tablet 11 01/30/2024 Active Insulin Glargine 100 UNIT/ML Subcutaneous Solution Pen-injector (Lantus)Indications :Type 2 diabetes mellitus with diabetic mononeuropathy, unspecified whether snf insulin use (HCC) Inject 10 Units under the skin at bedtime. 1 Each 02/02/2024 Active Rybelsus 3 MG Oral Tablet (Semaglutide) Take 1 tablet by mouth daily first thing in the morning. 30 Tablet 01/26/2024 4 Discontinue d(Formulary /Cost) documented as of this encounter (statuses as of 02/02/2024) Active Problems Problem Noted Date Diagnosed Date [...] as of this encounter (statuses as of 02/02/2024) Resolved Problems Problem Noted Date Diagnosed Date [...] as of this encounter (statuses as of 02/02/2024) Immunizations Name Administration Dates Next Due COVID-19 [...] encounter Miscellaneous Notes * Telephone Encounter - Michelle Jeter LPN - 02/01/2024 12:07 PM EDT Agreeable to long acting insulin - asking for this to be sent in. They were going to try to pick upthe Farxiga today. Asking for the insulin to be sent in just in case * Telephone Encounter - Savana Ogden PA-C - 01/30/2024 10:46 AM EDT I know we were trying to avoid injectables. But would they be agreeable to a long acting, once a day insulin? Am trying another oral script for coverage. * Telephone Encounter - Ashley Hart LPN - 01/27/2024 12:50 PM EDT Sanam aware and conveyed verbal understanding. He states that patients youth care specialist told him that the script is not covered by insurance He would like to know what PCP recommends They will pay for med if needed Can it be changed to something else that may be covered Should a prior auth be submitted Please advise * Telephone Encounter - Michelle Jeter LPN - 01/27/2024 12:04 PM EDT Left message for pt to call back. * Telephone Encounter - Savana Ogden PA-C - 01/26/2024 8:25 PM EDT Script sent . Start inessa * Telephone Encounter - Jayna Prieto MED ASSIST - 01/26/2024 1:11 PM EDT Contacted patient and she is agreeable to an additional oral medication. Patient stated that this can be sent to [facility]. * Telephone Encounter - Jayna Prieto MED ASSIST - 01/26/2024 1:11 PM EDT ----- Message from Savana Ogden sent at 01/26/2024 1:01 PM EDT ----- Please call patient inform her we need to add an additional oral medication to lower her blood sugars INESSA. documented in this encounter Plan of Treatment Upcoming Encounters Date Type Department Care Team (Late st Contact Info) Description 02/13/2024 4:20 PM EDT Telemedicine [facility] [address] [place] [address] Savana Ogden PA-C [address] [place] [address] 04/30/2024 8:00 AM EDT Office Visit [facility] [address] [place] [address] Savana Ogden PA-C [address] [place] [address] Scheduled Procedures Name Priority Associated Diagnoses Date/Ti me COLONOSCOPY FLEXIBLE PROXIMA L DIAGNOSTIC Recall History of colonic polyps Health Maintenance Due Date Last Done Comments COVID-19 Vaccine ( season) 2023 04/27/2022, 09/30/2020, 09/09/2020 Depression Screening 07/20/2023 07/20/2022, 10/22/2015 (Discussed) Influenza Vaccine (FLU shot) (#1) 2024 04/12/2023, 04/27/2022, 04/08/2021, Additional history exists CKD HGB USE SMARTSET 74907 04/21/202404/21, 02/04/2022, 02/04/2022, Additional history exists CKD PHOS USE SMARTSET 73077 04/21/2024 10/0 11/2022, 11/12/2022, 11/30/2021, Additional history [...] Diagnoses Diagnosis Type 2 diabetes mellitus with diabetic mononeuropathy, 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 [address] [place] [address] PCP - General Physician Hemmer Chainstitch 01/25/24 documented as of this encounter
--- OUTSIDE RECORDS SUMMARY | 2024-02-14 02:43 | External Medical Summary | Summary of Care ---
Author Name Unknown Organization [facility] Address [address] [facility] [place] [address] Phone [phone] Care Team Providers Care Fine Sander Name Role Phone Savana Ogden PA-C Primary Care Provider [phone] Encounter Details Date Type Department Care Team (Late st Contact Info) Description 01/30/2024 2:00 PM EDT Office Visit Pharmacy, [facility] [address] [facility] [place] [address] Pharmacist1, [facility] [address] [facility] [place] [address] Type 2 diabetes mellitus with hemoglobin A1c goal of less than 8.0% ([facility])* Allergies Active Allergy Reactions Criticality Noted Date Comments Bactrim 11/29/2012 Rash Dust 03/27/2002 Sitagliptin 11/29/2016 Abdominal pain Empagliflozin 03/01/2019 rash Mold 01/01/2003 [place] 03/27/2002 Pollen 03/27/2002 Ranitidine Rash High 11/18/2018 Simvastatin 02/04/2006 Body aches and nausea documented as of this encounter (statuses as of 01/30/2024) Medications Medication Sig Dispensed Refills Start Date [...] (HCC),HTN, goal below 140/90,PAT (paroxysmal atrial tachycardia) ([facility]) Take 1 Tablet by mouth in the [...] to 180 days 1 Each 01/26/2024 Active [employer] Verio w/Device KitIndications:Type 2 diabetes mellitus with stage 3a chronic kidney disease, without long-term current use of insulin (HCC) Use up to 4 times a day E11.9 1 Kit 01/26/2024 Active Pendleton Woolen MillsTouch Verio In Vitro Strip (Glucose Blood)Indications:Ty pe 2 diabetes mellitus with stage 3a chronic kidney disease, without long-term current use of insulin (HCC) Use up to 4 times a day E11.9 100 Strip 11 01/26/2024 Active OneTomatilde Grant Lancets 30GIndications:Type 2 diabetes mellitus with stage 3a chronic kidney disease, without long-term current use of insulin (HCC) Use up to 4 times a day 100 Each 3 01/26/2024 Active Dapagliflozin Propanediol 10 MG Oral Tablet (Bobxiga) Take 1 Tablet by mouth in the morning. 30 Tablet 11 01/30/2024 Active documented as of this encounter (statuses as of 01/30/2024) Active Problems Problem Noted Date Diagnosed Date [...] as of this encounter (statuses as of 01/30/2024) Resolved Problems Problem Noted Date Diagnosed Date [...] as of this encounter (statuses as of 01/30/2024) Immunizations Name Administration Dates Next Due COVID-19 mRNA, LNP-s, No Pre serve, 2-Dose Series (Precognate) 09/30/2020,09/09/2020 Covid-19, Mrna, Lnp-s, Pf, B ivalent, [...] 01/26/2024 Does the household have a re lar source of income? (Household - for ages [...] Progress Notes * Giovani Nick RPh - 01/30/2024 2:02 PM EDT Patient to clinic (walked in) to discuss Patricia CGM. Her friend has one and wanted to discuss. Spoke to patient and she would like to try a Freestyle Patricia 3 CGM. Order submitted through [employer]. Giovani Pettit RPh, [facility] Clinical Pharmacist Medication Therapy [facility] 01/30/2024, 2:13 PM documented in this encounter Plan of Treatment Upcoming Encounters Date Type Department Care Team (Late st Contact Info) Description 04/30/2024 8:00 AM EDT Office Visit Family Practice [facility] [place] [address] [facility] [place] [address] Savana Ogden PA-C [address] [facility] ON [facility] OF [facility] [place] [address] Scheduled Procedures Name Priority Associated Diagnoses Date/Ti me COLONOSCOPY FLEXIBLE PROXIMA L DIAGNOSTIC Recall History of colonic polyps Health Maintenance Due Date Last Done Comments COVID-19 Vaccine ( season) 2023 04/27/2022, 09/30/2020, 09/09/2020 Depression Screening 07/20/2023 07/20/2022, 10/22/2015 (Discussed) Influenza Vaccine (FLU shot) (#1) 2024 04/12/2023, 04/27/2022, 04/08/2021, Additional history exists CKD HGB USE SMARTSET 63740 04/21/202404/21, 02/04/2022, 02/04/2022, Additional history exists CKD PHOS USE SMARTSET 12856 04/21/2024 1011/2022, 11/12/2022, 11/30/2021, Additional history exists DTaP,Tdap,and Td Vaccines (2 - Td or Tdap) 06/26/2024 06/26/2014, 02/03/2004 HbA1c 07/28/2024 01/26/2024, 04, 04/21/2023, Additional history exists Diabetic Eye Exam [...] 7:41 AM 05/08/2008 10:46 AM Care Teams Fine Sander Relationship Specialty Start Date End Date Alin Savana JUDIT [place] [address] [place] [address] PCP - General Physician Lithopone Charger 01/25/24 documented as of this encounter
--- OUTSIDE RECORDS SUMMARY | 2024-02-14 02:44 | External Medical Summary | Summary of Care ---
Author Name Unknown Organization [facility] Address [address] [facility] [place] [address] Phone [phone] Care Team Providers Care Manufacturing Millwright Name Role Phone Nikky Hayes DO Primary Care Provider Reason for Visit * Reason Onset Date Comments Medication Problem 01/13/2024 Encounter Details Date Type Department Care Team (Late st Contact Info) Description 01/13/2024 Telephone Family Practice [facility] [place] [address] [facility] [place] [address] Savana Ogden PA-C [address] [facility] [place] [address] Medication Problem Allergies Active Allergy Reactions Criticality Noted Date Comments Bactrim 11/29/2012 Rash Dust 03/27/2002 Sitagliptin 11/29/2016 Abdominal pain Empagliflozin 03/01/2019 rash Mold 01/01/2003 [place] 03/27/2002 Pollen 03/27/2002 Ranitidine Rash High 11/18/2018 Simvastatin 02/04/2006 Body aches and nausea documented as of this encounter (statuses as of 01/13/2024) Medications Medication Sig Dispensed Refills Start Date End Date Status OMEGA-3 1000 MG PO CAPS daily 0 03/03/2006 Active MULTIVITAMINS PO TABS None Entered Active CALCIUM + D 600-200 MG-UNIT PO TABS None Entered Active ASPIRIN 81 MG PO TABS 1 daily Active PROBIOTIC PRODUCT PO TABS 1 tablet daily 06/20/2012 Active ONETOUCH DELICA LANCETS FINE MISCIndications:DM type 2, goal A1c below 7,DM type 2 nursing care encounter (HCC) check blood sugar one time daily. DX: 250.00 1 Box 6 10/11/2012 Active cetirizine (ZYRTEC) 10 MG Tablet Take 1 Tablet by mouth in the morning. Active Glucose Blood (ONETOUCH ULTRA BLUE) STRPIndications:DM type 2 nursing care encounter (HCC) Use one time daily for fluctuating blood sugars E11.22 100 Strip 3 06/06/2019 Active clotrimazole (LOTRIMIN) 1 % creamIndications:Va ginal candidiasis Apply topically to affected area 2 times a day. To affacted area for two weeks. 14 g 1 11/28/2019 Active Cinnamon 500 MG Oral Tablet Take 1 Tablet by mouth in the morning. Active Triamcinolone Acetonide 0.1 % External Cream (Aristocort)Indicat ions:Insect bite of throat, initial encounter Apply topically to affected area 2 times a day. To affected area. 60 g 5 04/12/2023 Active Pen Morrill 32G X 4 MM Use as directed. Once daily with insulin 100 Each 3 05/27/2023 Active Toujeo SoloStar 300 UNIT/ML Subcutaneous Solution Pen-injector (Insulin Glargine (1 Unit Dial)) Inject 26 Units under the skin at bedtime. 4.5 mL 11 08/04/2023 Active Metoprolol Tartrate 25 MG Oral Tablet (Lopressor)Indicati ons:Hypertensive kidney disease with stage 3a chronic kidney disease (HCC),HTN, goal below 140/90,PAT (paroxysmal atrial tachycardia) ([facility]) Take 1 Tablet by mouth [...] the morning. 180 Tablet 3 10/26/2023 Active documented as of this encounter (statuses as of 01/13/2024) Active Problems Problem Noted Date Diagnosed Date [...] as of this encounter (statuses as of 01/13/2024) Resolved Problems Problem Noted Date Diagnosed Date [...] as of this encounter (statuses as of 01/13/2024) Immunizations Name Administration Dates Next Due COVID-19 mRNA, LNP-s, No Pre serve, 2-Dose Series ([employer]) 09/30/2020,09/09/2020 Covid-19, Mrna, Lnp-s, Pf, B ivalent, 30 Mcg, IM, 12 yrs and above ([employer]) 04/27/2022 H1N1 2009 Influenza, IM 05/30/2009 PPD [...] Vaccine (Adult) 03/15/2011 Zoster Vaccine Recombinant (Shingrix) (Deferred: Patient Refused),02/04/2022 documented as of this encounter [...] 07/20/2022 Hunger Vital Sign Answer Date Recorded Worried About Running Out of Food in the Last Ye ar Never true 02/11/2020 Ran Out of Food in the Last Year Never true 02/11/2020 Utilities Answer Date Recorded Do you have trouble paying y our heating, water, or electric bill? (Adult - for ages 18 years and over) Not on file 01/03/2024 Is your family able to pay t he heat, water, or electric bill? (Household - for ages 0-17 years) Not on file 01/03/2024 Does your family have access to good internet? (Household - for ages 0-17 years) Not on file 01/03/2024 Social Connections Answer Date Recorded How often do you feel lonely or isolated from those around you? (Adult - for ages 18 years and over) Not on file 01/03/2024 Sex and Gender Information Value Date Recorded Sex Assigned at Female 04/16/2019 10:17 AM EDT Gender Identity Female 04/16/2019 10:17 AM EDT Sexual Orientation Straight 04/16/2019 10 :17 AM EDT Job Start Date Occupation Industry Not on file Not on file Not on file documented as of this encounter Miscellaneous Notes * Telephone Encounter - Sydney Mckee OSA - 01/13/2024 4:44 PM EDT Abigail lost her medicine. Please help her get refills. Doxycycline Hyclate 100 MG Oral Capsule () Metoprolol Tartrate 25 MG Oral Tablet (Lopressor) Omeprazole 20 MG Oral Capsule Delayed Release (PriLOSEC) metFORMIN HCl ER 500 MG Oral Tablet Extended Release 24 Hour (Glucophage XR) Toujeo SoloStar 300 UNIT/ML Subcutaneous Solution Pen-injector (Insulin Glargine (1 Unit Dial)) MAYBe Pen Morrill 32G X 4 MM Please call to make sure everything is ok documented in this encounter Plan of Treatment Upcoming Encounters Date Type Department Care Team (Late st Contact Info) Description 01/26/2024 9:00 AM EDT Office Visit [facility] Practice [facility] [address] [place] [address] Savana Ogden PA-C [address] [place] [address] [address] Scheduled Procedures Name Priority Associated Diagnoses Date/Ti me COLONOSCOPY FLEXIBLE PROXIMA L DIAGNOSTIC Recall History of colonic polyps Health Maintenance Due Date Last Done Comments Zoster Vaccines (3 of 3) 04/01/2022 02/04/2022, 02/16 COVID-19 Vaccine ( season) 2023 04/27/2022, 09/30/2020, 09/09/2020 Depression Screening 07/20/2023 07/20/2022, 10/22/2015 (Discussed) Albumin/Creatinine Ratio 04/21/2024 023, 11/12/2022, 11/30/2021, Additional history exists CKD HGB USE SMARTSET 58954 04/21/202404/21, 02/04/2022, 02/04/2022, Additional history exists CKD PHOS USE SMARTSET 37666 04/21/20240 11/2022, 11/12/2022, 11/30/2021, Additional history exists HbA1c 04/26/2024 [...] Discontinued 03/30/2022, 03/30/2022, 10/25/2016, Additional history exists Influenza Vaccine (FLU shot) Completed 04/12/2023, 04/27/2022, 04/08/2021, Additional history exists GARDASIL-HPV IMMUNIZATION SERIES Aged Out No longer eligible based on patient's age to complete this topic Hepatitis B Aged Out No longer eligi ble based on patient's age to complete this [...] 7:41 AM 05/08/2008 10:46 AM Care Teams Manufacturing Millwright Relationship Specialty Start Date End Date Nikky Hayes DO [address] [place] [address] PCP - General Family Medicine 01/27/16 documented as of this encounter
--- OUTSIDE RECORDS SUMMARY | 2024-02-14 02:44 | External Medical Summary ---
Author Name Unknown Address Unknown Organization K01:[facility] [place] [address] [place] [address] Laboratory Report Ordering Provider Test Date Status 01/26/2024 10:13:16 Final Normal: <30 mg/g creatinine< br/>High: 30-300 mg/g creatinine
Very High: >300 mg/g creatinine
Nephrotic: >2200 mg/g creatinine Observation Date Value Abnormality Reference (Units ) Status Albumin, Urine 01/26/2024 10:13:16 <1.20 (mg/dL) Final Creatinine, Urine 01/26/2024 10:13:16 42 (mg/dL) Final Albumin/Creatinine [Mass Ratio] in Urine 01/26/2024 10:13:16 <29 <30 (mg/g Creat) Final Performing [place] [facility] [place] [facility] [address] [place] [address]
--- OUTSIDE RECORDS SUMMARY | 2024-02-14 02:44 | External Medical Summary | Summary of Care ---
Author Name Unknown Organization [facility] Address [address] [place] [address] Phone [phone] Care Team Providers Care Medical Safety Director Name Role Phone Nikky Hayes DO Primary Care Provider Reason for Visit * Reason Onset Date Comments Scan To Read 09/01/2023 Encounter Details Date Type Department Care Team (Late st Contact Info) Description 09/01/2023 Telephone Family Practice [facility] [address] [facility] [place] [address] Nikky Hayes DO [address] [facility] [place] [address] Scan To Read Allergies Active Allergy Reactions Criticality Noted Date Comments Bactrim 11/29/2012 Rash Dust 03/27/2002 Sitagliptin 11/29/2016 Abdominal pain Empagliflozin 03/01/2019 rash Mold 01/01/2003 [place] 03/27/2002 Pollen 03/27/2002 Ranitidine Rash High 11/18/2018 Simvastatin 02/04/2006 Body aches and nausea documented as of this encounter (statuses as of 12/01/2023) Medications Medication Sig Dispensed Refills Start Date End Date Status OMEGA-3 1000 MG PO CAPS daily 0 03/03/2006 Active MULTIVITAMINS PO TABS None Entered 0 Active CALCIUM + D 600-200 MG-UNIT PO TABS None Entered 0 Active ASPIRIN 81 MG PO TABS 1 daily 0 Active PROBIOTIC PRODUCT PO TABS 1 tablet daily 0 06/20/2012 Active ONETOUCH DELICA LANCETS FINE MISCIndications:DM type 2, goal A1c below 7,DM type 2 nursing care encounter (HCC) check blood sugar one time daily. DX: 250.00 1 Box 6 10/11/2012 Active cetirizine (ZYRTEC) 10 MG Tablet Take 1 Tablet by mouth in the morning. 0 Active Glucose Blood (ONETOUCH ULTRA BLUE) STRPIndications:DM type 2 nursing care encounter (HCC) Use one time daily for fluctuating blood sugars E11.22 100 Strip 3 06/06/2019 Active clotrimazole (LOTRIMIN) 1 % creamIndications:Vag inal candidiasis Apply topically to affected area 2 times a day. To affacted area for two weeks. 14 g 1 11/28/2019 Active Cinnamon 500 MG Oral Tablet Take 1 Tablet by mouth in the morning. 0 Active Triamcinolone Acetonide 0.1 % External Cream (Aristocort)Indicati ons:Insect bite of throat, initial encounter Apply topically to affected area 2 times a day. To affected area. 60 g 5 04/12/2023 Active Pen [place] 32G X 4 MM Use as directed. Once daily with insulin 100 Each 3 05/27/2023 Active Toujeo SoloStar 300 UNIT/ML Subcutaneous Solution Pen-injector (Insulin Glargine (1 Unit Dial)) Inject 26 Units under the skin at bedtime. 4.5 mL 11 08/04/2023 Active documented as of this encounter (statuses as of 12/01/2023) Active Problems Problem Noted Date Diagnosed Date [...] as of this encounter (statuses as of 12/01/2023) Resolved Problems Problem Noted Date Diagnosed Date [...] as of this encounter (statuses as of 12/01/2023) Immunizations Name Administration Dates Next Due COVID-19 [...] in the Last Year Never true 02/11/2020 Sex and Gender Information Value Date Recorded Sex Assigned at Female 04/16/2019 10:17 AM EDT Gender Identity Female 04/16/2019 10:17 AM EDT Sexual Orientation Straight 04/16/2019 10 :17 AM EDT Job Start Date Occupation Industry Not on file Not on file Not on file documented as of this encounter Miscellaneous Notes * Telephone Encounter - Johnnie Velez MD - 09/01/2023 11:08 AM EST Retinal Scan Imaging Abigail Shaw [id number] Retinal Scan Interpretation: There is no retinopathy in both eyes Diabetes Retinal Imaging Care Plan: The retinal scan results are normal - I will forward this encounter to the Ophthalmology DM Letter Pool [[id number]], they will send a normal retinal scan letter to the patient, and the patient will be seen back for a yearly scan. Johnnie Velez MD 09/01/2023 11:09 AM documented in this encounter Plan of Treatment Upcoming Encounters Date Type Department Care Team (Late st Contact Info) Description 01/26/2024 9:00 AM EDT Office Visit Family Practice [facility] [employer] [address] [place] [address] Savana Ogden PA-C [address] [place] [address] [address] Scheduled Procedures Name Priority Associated Diagnoses Date/Ti me COLONOSCOPY FLEXIBLE PROXIMA L DIAGNOSTIC Recall History of colonic polyps Health Maintenance Due Date Last Done Comments Zoster Vaccines (3 of 3) 04/01/2022 02/04/2022, 02/16 COVID-19 Vaccine ( season) 2023 04/27/2022, 09/30/2020, 09/09/2020 Depression Screening 07/20/2023 07/20/2022, 10/22/2015 (Discussed) Albumin/Creatinine Ratio 04/21/2024 023, 11/12/2022, 11/30/2021, Additional history exists CKD HGB USE SMARTSET 54891 04/21/202404/21, 02/04/2022, 02/04/2022, Additional history exists CKD PHOS USE SMARTSET 08189 04/21/2024 1011/2022, 11/12/2022, 11/30/2021, Additional history exists HbA1c 04/26/2024 10/26/2023, 100 11/2022, 11/12/2022, Additional history exists DTaP,Tdap,and Td Vaccines (2 - Td or Tdap) 06/26/2024 06/26/2014, 02/03/2004 Diabetic Eye Exam 09/01/2024 09/01/2023, , 07/20/2021, Additional history exists Diabetic Foot Exam 09/01/2024 [...] filedocumented as of this encounter Advance Directives Latest Code Status on File Code Status Date Activated Date Inactivated Comments Full Code 05/08/2008 10:46 AM 05/08/2008 5:20 PM Code Status History Code Status Date Activated Date Inactivated Comments Full Code 05/08/2008 7:41 AM 05/08/2008 10:46 AM Care Teams Medical Safety Director Relationship Specialty Start Date End Date Nikky Hayes DO [address] [place] [address] PCP - General Family Medicine 01/27/16 documented as of this encounter
--- OUTSIDE RECORDS SUMMARY | 2024-02-14 02:44 | External Medical Summary ---
Author Name Unknown Address Unknown Organization K09:[facility] [place] [address] Laboratory Report Ordering Provider Test Date Status RENU MÉNDEZ III 10/26/2023 12:50:58 Final Observation Date Value Abnormality Reference (Units ) Status BUN 10/26/2023 12:50:58 29 Above high normal 6-20 (mg/dL) Final Creatinine 10/26/2023 12:50:58 0.9 0.5-1.0 (mg/dL) Final Glomerular filtration rate/1.73 sq M.predicted [Volume Rate/Area] in Serum, Plasma or Blood by Creatinine-based formula (CKD-EPI) 10/26/2023 12:50:58 63 >=60 (mL/min) Final eGFR is calculated based on the CKD-EPI 2020 equation Sodium 10/26/2023 12:50:58 138 135-146 (m mol/L) Final Potassium 10/26/2023 12:50:58 4.6 3.5-5.1 (m mol/L) Final Cl 10/26/2023 12:50:58 100 98-107 (mm ol/L) Final CO2 10/26/2023 12:50:58 28 22-32 (mmo l/L) Final Anion gap 10/26/2023 12:50:58 10 7-15 (mmol /L) Final Glucose 10/26/2023 12:50:58 358 Above high normal 70 -120 (mg/dL) Final Calcium 10/26/2023 12:50:58 9.9 8.4-10.2 ( mg/dL) Final Performing Location [facility] [place] [address]
--- OUTSIDE RECORDS SUMMARY | 2024-02-14 02:44 | External Medical Summary | Summary of Care ---
Author Name Unknown Organization [facility] Address [address] [place] [address] Phone [phone] Care Team Providers Care Blunger Name Role Phone Nikky Hayes DO Primary Care Provider Reason for Visit * Reason Comments Outpatient Testing Encounter Details Date Type Department Care Team (Late st Contact Info) Description 10/26/2023 12:40 PM EDT Laboratory Laboratory [facility] [place] [address] [place] [phone] [facility] [address] [place] [address] Dysuria; MyCode Research Other*[id number]; Type 2 diabetes mellitus with stage 3a chronic kidney disease, without long-term current use of insulin ([facility]); Type 2 diabetes mellitus with hemoglobin A1c goal of less than 8.0% ([facility]) Allergies Active Allergy Reactions Criticality Noted Date Comments Bactrim 11/29/2012 Rash Dust 03/27/2002 Sitagliptin 11/29/2016 Abdominal pain Empagliflozin 03/01/2019 rash Mold 01/01/2003 [place] 03/27/2002 Pollen 03/27/2002 Ranitidine Rash High 11/18/2018 Simvastatin 02/04/2006 Body aches and nausea documented as of this encounter (statuses as of 10/26/2023) Medications Medication Sig Dispensed Refills Start Date End Date Status OMEGA-3 1000 MG PO CAPS daily 0 03/03/2006 Active MULTIVITAMINS PO TABS None Entered 0 Active CALCIUM + D 600-200 MG-UNIT PO TABS None Entered 0 Active ASPIRIN 81 MG PO TABS 1 daily 0 Active PROBIOTIC PRODUCT PO TABS 1 tablet daily 0 06/20/2012 Active ONETOUCH [place] LANCALBINA FINE MISCIndications:DM type 2, goal A1c below [...] area. 60 g 5 04/12/2023 Active Pen [place] 32G X 4 MM Use as directed. [...] (HCC),HTN, goal below 140/90,PAT (paroxysmal atrial tachycardia) ([facility]) Take 1 Tablet by mouth in the [...] as of this encounter (statuses as of 10/26/2023) Active Problems Problem Noted Date Diagnosed Date [...] as of this encounter (statuses as of 10/26/2023) Resolved Problems Problem Noted Date Diagnosed Date [...] as of this encounter (statuses as of 10/26/2023) Immunizations Name Administration Dates Next Due COVID-19 mRNA, LNP-s, No Pre serve, 2-Dose Series (Dashbook) 09/30/2020,09/09/2020 Covid-19, Mrna, Lnp-s, Pf, B ivalent, 30 Mcg, IM, 12 yrs and above (Pfizer) 04/27/2022 H1N1 2009 Influenza, IM 05/30/2009 PPD 04/19/2007,04/28/2006,04/07/2005 Pneumococcal Conjugate Vacc, 13 Valent (Prevnar) 05/31/2016 Pneumococcal Polysaccharide PPV23 (Pneumovax) 11/02/2005 Season Influenza, Quad, PF, Adjuvanted, 65+ Yrs, IM (FLUAD) 04/23/2020 Seasonal Influenza, PF, 6 M & above, IM , (FluLaval or Fluzone) 04/18/2018 Seasonal Influenza, Quadriva lent Hd (Fluzone Hd) 04/12/2023,04/27/2022,04/08/2021 Seasonal Influenza, Quadriva lent, No Preserve, IM 04/04/2017,04/07/2016,04/21/2015 Seasonal Influenza, Split, I IV3, With Preserve, Inj 04/22/2014,04/24/2013,04/05/2012,04/20,04/21/2010,04/09/2009,05/02/2008 ,04/19/2007,04/28/2006,05/19/2005,05/18,05/29/2002 Seasonal Influenza, Trivalen t, Adjuvanted, 65+ yrs 04/16/2019 TD - Tetanus/Diptheria (ADULT) 02/03/2004 TDAP (age 10 and older)(Boostrix) 06/26/2014 Varicella [...] on file documented as of this encounter Plan of Treatment Upcoming Encounters Date Type Department Care Team (Late st Contact Info) Description 01/26/2024 9:00 AM EDT Office Visit Family Practice [facility] [address] [place] [address] Savana Ogden PA-C [address] [facility] [place] [address] Pending Results Name Type Priority Associated Diagnoses Date /Time URINALYSIS, REFLEX TO MICROSCOPIC Lab Routine Dysuria 10/26/2023 12:46 PM EDT MYCODE SUBSEQUENT ADULT Lab Routine MyCode Research Other*[id number] 10/26/2023 12:50 PM EDT HEMOGLOBIN A1C Lab Routine Type 2 diabetes mellitus with stage 3a chronic kidney disease, without long-term current use of insulin ([facility]) 10/26/2023 12:50 PM EDT BASIC METABOLIC PANEL Lab Routine Type 2 diabetes mellitus with hemoglobin A1c goal of less than 8.0% ([facility]) 10/26/2023 12:50 PM EDT MYCODE SST1 Lab Routine MyCode Research Other*[id number] 10/26/2023 12:50 PM EDT MYCODE SST2 Lab Routine MyCode Research Other*[id number] 10/26/2023 12:50 PM EDT MICROSCOPIC EXAM, URINE Lab Routine Dysuria 10/26/2023 12:46 PM EDT Scheduled Procedures Name Priority Associated Diagnoses Date/Ti me COLONOSCOPY FLEXIBLE PROXIMA L DIAGNOSTIC Recall History of colonic polyps Health Maintenance Due Date Last Done Comments Zoster Vaccines (3 of 3) 04/01/2022 02/04/2022, 02/16 COVID-19 Vaccine ( season) 2023 04/27/2022, 09/30/2020, 09/09/2020 Depression Screening 07/20/2023 07/20/2022, 10/22/2015 (Discussed) HbA1c 10/21/2023 04/21/2023, 10/17, 05/21/2022, Additional history exists Albumin/Creatinine Ratio 04/21/2024 023, 11/12/2022, 11/30/2021, Additional history exists CKD HGB USE SMARTSET 56154 04/21/202404/21, 02/04/2022, 02/04/2022, Additional history exists CKD PHOS USE SMARTSET 97992 04/21/2024 100 11/2022, 11/12/2022, 11/30/2021, Additional history exists DTaP,Tdap,and Td Vaccines (2 - Td or Tdap) 06/26/2024 06/26/2014, 02/03/2004 Diabetic Eye Exam 09/01/2024 09/01/2023, , 07/20/2021, Additional history exists Diabetic Foot Exam 09/01/2024 09/01/2023, 0 07/20/2022, 06/09/2021, Additional history exists COLONOSCOPY-EVERY 5 YRS AGES 18-100 03/30/2027 03/30/2022, 03/30/2022, 10/25/2016, Additional history exists DXA Scan 05/24/2030 05/24/2023, 12/16, 12/07/2011, Additional history exists Pneumococcal Vaccine: 65+ Years Completed 05/31/2016, 11/02/2005 Influenza Vaccine (FLU shot) Completed , 04/27/2022, 04/08/2021, Additional history exists GARDASIL-HPV IMMUNIZATION [...] as of this encounter Visit Diagnoses Diagnosis Dysuria MyCode Research Other*[id number] Type 2 diabetes mellitus with stage 3a chronic kidney disease, without long-term current use of insulin (HCC) Type 2 diabetes mellitus with hemoglobin A1c goal of less than 8.0% (HCC) documented in this encounter Advance Directives Latest Code Status on File Code Status Date Activated Date Inactivated Comments Full Code 05/08/2008 10:46 AM 05/08/2008 5:20 PM Code Status History Code Status Date Activated Date Inactivated Comments Full Code 05/08/2008 7:41 AM 05/08/2008 10:46 AM Care Teams Blunger Relationship Specialty Start Date End Date Nikky Hayes DO [facility] [place] [address] PCP - General Family Medicine 01/27/16 documented as of this encounter
--- OUTSIDE RECORDS SUMMARY | 2024-02-14 02:44 | External Medical Summary ---
Author Name Unknown Address Unknown Organization K01:[facility] [place] [facility] [address] [place] [address] Laboratory Report Ordering Provider Test Date Status MIKKI WILLIS 10/26/2023 12:50:58 Final Observation Date Value Abnormality Reference (Units ) Status MYCODE SPECIMEN-SST 10/26/2023 12:50:58 Freezing of extracted DNA, whole blood and/or serum. Final Performing Location [facility] [place] - [address] [place] [address]
--- OUTSIDE RECORDS SUMMARY | 2024-02-14 02:44 | External Medical Summary | Summary of Care ---
Author Name Unknown Organization [facility] Address [address] [facility] [place] [address] Phone [phone] Care Team Providers Care Senior Chemist Name Role Phone Nikky Hayes DO Primary Care Provider Reason for Visit * Reason Onset Date Comments Medication Problem 01/13/2024 Encounter Details Date Type Department Care Team (Late st Contact Info) Description 01/13/2024 Telephone Family Practice [facility] [place] [address] [facility] [place] [address] Savana Ogden PA-C [address] [facility] [place] [address] Medication Problem Allergies Active Allergy Reactions Criticality Noted Date Comments Bactrim 11/29/2012 Rash Dust 03/27/2002 Sitagliptin 11/29/2016 Abdominal pain Empagliflozin 03/01/2019 rash Mold 01/01/2003 [place] 03/27/2002 Pollen 03/27/2002 Ranitidine Rash High 11/18/2018 Simvastatin 02/04/2006 Body aches and nausea documented as of this encounter (statuses as of 01/16/2024) Medications Medication Sig Dispensed Refills Start Date [...] area. 60 g 5 04/12/2023 Active Pen [place] 32G X 4 MM Use as directed. [...] goal below 140/90,PAT (paroxysmal atrial tachycardia) ([facility]) Take 1 Tablet by mouth in the [...] as of this encounter (statuses as of 01/16/2024) Active Problems Problem Noted Date Diagnosed Date [...] as of this encounter (statuses as of 01/16/2024) Resolved Problems Problem Noted Date Diagnosed Date [...] as of this encounter (statuses as of 01/16/2024) Immunizations Name Administration Dates Next Due COVID-19 mRNA, LNP-s, No Pre serve, 2-Dose Series (Field Agent) 09/30/2020,09/09/2020 Covid-19, Mrna, Lnp-s, Pf, B ivalent, 30 Mcg, IM, 12 yrs and above (Field Agent) 04/27/2022 H1N1 2009 Influenza, IM 05/30/2009 PPD [...] (Insulin Glargine (1 Unit Dial)) MAYBe Pen [place] 32G X 4 MM Please call to make sure everything is ok documented in this encounter Plan of Treatment Upcoming Encounters Date Type Department Care Team (Late st Contact Info) Description 01/26/2024 9:00 AM EDT Office Visit Family Practice [facility] [address] [place] [address] Savana Ogden PA-C [address] [place] [address] Scheduled Procedures Name Priority Associated Diagnoses Date/Ti [...] Additional history exists CKD HGB USE SMARTSET 72893 04/21/202404/21, 02/04/2022, 02/04/2022, Additional history exists CKD PHOS USE SMARTSET 02903 04/21/202411/2022, 11/12/2022, 11/30/2021, Additional history exists HbA1c [...] Discontinued 03/30/2022, 03/30/2022, 10/25/2016, Additional history exists GARDASIL-HPV IMMUNIZATION SERIES Aged [...] 7:41 AM 05/08/2008 10:46 AM Care Teams Senior Chemist Relationship Specialty Start Date End Date Nikky Hayes DO [address] [place] [address] PCP - General Family Medicine 01/27/16 documented as of this encounter
--- OUTSIDE RECORDS SUMMARY | 2024-02-14 02:44 | External Medical Summary ---
Author Name Unknown Address Unknown Organization [id number]:[facility] [place] [address] [place] [address] Laboratory Report Ordering Provider Test Date Status MIKKI WILLIS 10/26/2023 12:50:58 Final Observation Date Value Abnormality Reference (Units ) Status MYCODE SPECIMEN-SST 10/26/2023 12:50:58 Freezing of extracted DNA, whole blood and/or serum. Final Performing Location [facility] [place] [address] [place] [address]
--- OUTSIDE RECORDS SUMMARY | 2024-02-14 02:44 | External Medical Summary | Summary of Care ---
Author Name Unknown Organization [facility] Address [address] [facility] [place] [address] Phone [phone] Care Team Providers Care Associate Professor Of Geology Name Role Phone Nikky Hayes DO Primary Care Provider Reason for Visit * Reason Onset Date Comments Medication Problem 01/13/2024 Encounter Details Date Type Department Care Team (Late st Contact Info) Description 01/13/2024 Telephone Family Practice [facility] [place] 200 [facility] [place] [address] Savana Ogden PA-C 200 [facility] [place] [address] Medication Problem Allergies Active Allergy Reactions Criticality Noted Date Comments Bactrim 11/29/2012 Rash Dust 03/27/2002 Sitagliptin 11/29/2016 Abdominal pain Empagliflozin 03/01/2019 rash Mold 01/01/2003 [place] 03/27/2002 Pollen 03/27/2002 Ranitidine Rash High 11/18/2018 [...] area. 60 g 5 04/12/2023 Active Pen [place] 32G X 4 MM Use as directed. [...] (HCC),HTN, goal below 140/90,PAT (paroxysmal atrial tachycardia) ([facility]) Take 1 Tablet by mouth in the [...] mRNA, LNP-s, No Pre serve, 2-Dose Series (Outlisten) 09/30/2020,09/09/2020 Covid-19, Mrna, Lnp-s, Pf, B ivalent, 30 Mcg, IM, 12 yrs and above (Outlisten) 04/27/2022 H1N1 2009 Influenza, IM 05/30/2009 PPD [...] (Insulin Glargine (1 Unit Dial)) MAYBe Pen [place] 32G X 4 MM Please call to make sure everything is ok documented in this encounter Plan of Treatment Upcoming Encounters Date Type Department Care Team (Late st Contact Info) Description 01/26/2024 9:00 AM EDT Office Visit Family Practice [facility] [address] [place] [address] Savana Ogden PA-C [address] [place] [address] [address] Scheduled Procedures Name Priority Associated Diagnoses Date/Ti [...] Additional history exists CKD HGB USE SMARTSET 69471 04/21/202404/21, 02/04/2022, 02/04/2022, Additional history exists CKD PHOS USE SMARTSET 89747 04/21/202411/2022, 11/12/2022, 11/30/2021, Additional history exists HbA1c [...] 7:41 AM 05/08/2008 10:46 AM Care Teams Associate Professor Of Geology Relationship Specialty Start Date End Date Nikky Hayes DO [address] [address] PCP - General Family Medicine 01/27/16 documented as of this encounter
--- OUTSIDE RECORDS SUMMARY | 2024-02-14 02:44 | External Medical Summary ---
Author Name Unknown Address Unknown Organization K09:[facility] [place] [address] Laboratory Report Ordering Provider Test Date Status 01/26/2024 10:13:16 Final Observation Date Value Abnormality Reference (Units ) Status BUN 01/26/2024 10:13:16 27 Above high normal 6-20 (mg/dL) Final Creatinine 01/26/2024 10:13:16 0.9 0.5-1.0 (mg/dL) Final Glomerular filtration rate/1.73 sq M.predicted [Volume Rate/Area] in Serum, Plasma or Blood by Creatinine-based formula (CKD-EPI) 01/26/2024 10:13:16 63 >=60 (mL/min) Final eGFR is calculated based on the CKD-EPI 2020 equation Sodium 01/26/2024 10:13:16 138 135-146 (m mol/L) Final Potassium 01/26/2024 10:13:16 4.8 3.5-5.1 (m mol/L) Final Cl 01/26/2024 10:13:16 101 98-107 (mm ol/L) Final CO2 01/26/2024 10:13:16 27 22-32 (mmo l/L) Final Anion gap 01/26/2024 10:13:16 10 7-15 (mmol /L) Final Glucose 01/26/2024 10:13:16 368 Above high normal 70 -120 (mg/dL) Final Calcium 01/26/2024 10:13:16 10.4 Above high normal 8. 4-10.2 (mg/dL) Final Performing Location [facility] [place] [address]
--- OUTSIDE RECORDS SUMMARY | 2024-02-14 02:44 | External Medical Summary | Summary of Care ---
Author Name Unknown Organization [facility] Address [address] [place] [address] Phone [phone] Care Team Providers Care Sales Marketing Director Name Role Phone Nikky Hayes DO Primary Care Provider Reason for Visit * Reason Comments Outpatient Testing Encounter Details Date Type Department Care Team (Late st Contact Info) Description 10/26/2023 12:40 PM EDT Laboratory Laboratory [facility] [place] [address] [place] [phone] [facility] [address] [place] [address] Dysuria; MyCode Research Other*[id number]; Type 2 diabetes mellitus with stage 3a chronic kidney disease, without long-term current use of insulin ([facility]); Type 2 diabetes mellitus with hemoglobin A1c goal of less than 8.0% ([facility]) Allergies Active Allergy Reactions Criticality Noted Date Comments Bactrim 11/29/2012 Rash Dust 03/27/2002 Sitagliptin 11/29/2016 Abdominal pain Empagliflozin 03/01/2019 rash Mold 01/01/2003 [place] 03/27/2002 Pollen 03/27/2002 Ranitidine Rash High 11/18/2018 [...] area. 60 g 5 04/12/2023 Active Pen [place] 32G X 4 MM Use as directed. [...] mRNA, LNP-s, No Pre serve, 2-Dose Series (Nitro) 09/30/2020,09/09/2020 Covid-19, Mrna, Lnp-s, Pf, B ivalent, [...] Practice [facility] [address] [place] [address] Savana Ogden PA-C [address] [facility] [place] [address] Pending Results Name Type Priority Associated Diagnoses Date /Time URINALYSIS, REFLEX TO MICROSCOPIC Lab Routine Dysuria 10/26/2023 12:46 PM EDT MYCODE SUBSEQUENT ADULT Lab Routine MyCode Research Other*[id number] 10/26/2023 12:50 PM EDT HEMOGLOBIN A1C Lab Routine Type 2 diabetes mellitus with stage 3a chronic kidney disease, without long-term current use of insulin ([facility]) 10/26/2023 12:50 PM EDT BASIC METABOLIC PANEL Lab Routine Type 2 diabetes mellitus with hemoglobin A1c goal of less than 8.0% ([facility]) 10/26/2023 12:50 PM EDT MYCODE SST1 Lab Routine MyCode Research Other*[id number] 10/26/2023 12:50 PM EDT MYCODE SST2 Lab Routine MyCode Research Other*[id number] 10/26/2023 12:50 PM EDT Scheduled Procedures Name Priority Associated [...] Additional history exists CKD HGB USE SMARTSET 57326 04/21/202404/21, 02/04/2022, 02/04/2022, Additional history exists CKD PHOS USE SMARTSET 27023 04/21/2024 10/0 11/2022, 11/12/2022, 11/30/2021, Additional history [...] encounter Visit Diagnoses Diagnosis Dysuria MyCode Research Other*[id number] Type 2 diabetes mellitus with stage 3a [...] 7:41 AM 05/08/2008 10:46 AM Care Teams Sales Marketing Director Relationship Specialty Start Date End Date Nikky Hayes DO [address] [place] [address] PCP - General Family Medicine 01/27/16 documented as of this encounter
--- OUTSIDE RECORDS SUMMARY | 2024-02-14 02:44 | External Medical Summary ---
Author Name Unknown Address Unknown Organization [id number]:LABORATORY [facility] - [address] [facility] [address] Laboratory Report Ordering Provider Test Date Status 01/26/2024 10:13:16 Final Observation Date Value Abnormality Reference (Units ) Status HbA1C 01/26/2024 10:13:16 13.1 Above high normal 4. 0-5.6 (%) Final The use of HbA1c to monitor glycemic status is based on normal hemoglobin and HbA composition. This test should not be used in patients with abnormal hemoglobin that affects the half life of the red blood cell or the in vivo glycation rates. Glucose, estimated average 01/26/2024 10:13:16 329 Above high normal <126 (mg/dL) Hardy wallace Performing Location LABORATORY [facility] - [address] [facility] [address]
--- OUTSIDE RECORDS SUMMARY | 2024-02-14 02:44 | External Medical Summary | Summary of Care ---
Author Name Unknown Organization [facility] Address [address] [place] [address] Phone [phone] Care Team Providers Care Heat And Frost Insulator Name Role Phone Savana Ogden PA-C Primary Care Provider [phone] Reason for Visit * Reason Comments Outpatient Testing Encounter Details Date Type Department Care Team (Late st Contact Info) Description 01/26/2024 10:10 AM EDT Laboratory Laboratory [facility] [place] [address] [place] [address] [facility] [address] [facility] [place] [address] Type 2 diabetes mellitus with stage 3a chronic kidney disease (HCC) Allergies Active Allergy Reactions Criticality Noted Date Comments Bactrim 11/29/2012 Rash Dust 03/27/2002 Sitagliptin 11/29/2016 Abdominal pain Empagliflozin 03/01/2019 rash Mold 01/01/2003 Scalf 03/27/2002 Pollen 03/27/2002 Ranitidine Rash High 11/18/2018 [...] (paroxysmal atrial tachycardia) ([facility]) Take 1 Tablet by mouth in the [...] to 180 days 1 Each 01/26/2024 Active [employer] Verio w/Device KitIndications:Type 2 diabetes mellitus with stage 3a chronic kidney disease (HCC) Use up to 4 times a day E11.9 1 Kit 01/26/2024 Active OneTouch Verio In Vitro Strip (Glucose Blood)Indications:Ty pe 2 diabetes mellitus with stage 3a chronic kidney disease (HCC) Use up to 4 times a day E11.9 100 Strip 11 01/26/2024 Active OneTouch Delica Lancets 30GIndications:Type 2 diabetes mellitus with stage 3a chronic kidney disease (HCC) Use up to 4 times a [...] mRNA, LNP-s, No Pre serve, 2-Dose Series ([employer]) 09/30/2020,09/09/2020 Covid-19, Mrna, Lnp-s, Pf, B ivalent, [...] 8:00 AM EDT Office Visit Family Practice [facility] [place] [address] [place] [address] Savana Ogden PA-C [address] [place] [address] Pending Results Name Type Priority Associated Diagnoses Date /Time ALBUMIN / CREATININE RATIO, URINE Lab Routine Type 2 diabetes mellitus with stage 3a chronic kidney disease (HCC) 01/26/2024 10:13 AM EDT HEMOGLOBIN A1C Lab Routine Type 2 diabetes mellitus with stage 3a chronic kidney disease (HCC) 01/26/2024 10:13 AM EDT BASIC METABOLIC PANEL Lab Routine Type 2 diabetes mellitus with stage 3a chronic kidney disease (HCC) 01/26/2024 10:13 AM EDT Scheduled Procedures Name Priority Associated Diagnoses [...] Additional history exists CKD HGB USE SMARTSET 59631 04/21/202404/21, 02/04/2022, 02/04/2022, Additional history exists CKD PHOS USE SMARTSET 96515 04/21/2024 100 11/2022, 11/12/2022, 11/30/2021, Additional history exists HbA1c [...] Diagnoses Diagnosis Type 2 diabetes mellitus with stage 3a chronic kidney disease (HCC) documented in this encounter Advance Directives * Full Code (Latest Code Status on File) Date Activated Date Inactivated Comments 05/08/2008 10:46 AM 05/08/2008 5:20 PM * Full Code Date Activated Date Inactivated Comments 05/08/2008 7:41 AM 05/08/2008 10:46 AM Care Teams Heat And Frost Insulator Relationship Specialty Start Date End Date Savana Ogden PA-C [address] [place] [address] PCP - General Physician Egg Tester 01/25/24 documented as of this encounter
--- OUTSIDE RECORDS SUMMARY | 2024-02-14 02:44 | External Medical Summary | Summary of Care ---
Author Name Unknown Organization [facility] Address [address] [facility] [place] [address] Phone [phone] Care Team Providers Care Supervisory Civil Engineer Name Role Phone Nikky Hayes DO Primary Care Provider Reason for Visit * Reason Onset Date Comments Medication Problem 01/13/2024 Encounter Details Date Type Department Care Team (Late st Contact Info) Description 01/13/2024 Telephone Family Practice [facility] [place] [address] [facility] [place] [address] Savana Ogden PA-C [address] [facility] [facility] [place] [address] Medication Problem Allergies Active Allergy Reactions Criticality Noted Date Comments Bactrim 11/29/2012 Rash Dust 03/27/2002 Sitagliptin 11/29/2016 Abdominal pain Empagliflozin 03/01/2019 rash Mold 01/01/2003 [place] 03/27/2002 Pollen 03/27/2002 Ranitidine Rash High 11/18/2018 Simvastatin 02/04/2006 Body aches and nausea documented as of this encounter (statuses as of 01/17/2024) Medications Medication Sig Dispensed Refills Start Date [...] area. 60 g 5 04/12/2023 Active Pen [place] 32G X 4 MM Use as directed. [...] (HCC),HTN, goal below 140/90,PAT (paroxysmal atrial tachycardia) ([facility]) Take 1 Tablet by mouth in [...] as of this encounter (statuses as of 01/17/2024) Active Problems Problem Noted Date Diagnosed Date [...] as of this encounter (statuses as of 01/17/2024) Resolved Problems Problem Noted Date Diagnosed Date [...] as of this encounter (statuses as of 01/17/2024) Immunizations Name Administration Dates Next Due COVID-19 mRNA, LNP-s, No Pre serve, 2-Dose Series ([employer]) 09/30/2020,09/09/2020 Covid-19, Mrna, Lnp-s, Pf, B ivalent, 30 Mcg, IM, 12 yrs and above ([employer]) 04/27/2022 H1N1 2009 Influenza, IM 05/30/2009 PPD [...] encounter Miscellaneous Notes * Telephone Encounter - Savanna Stewart RN - 01/17/2024 4:01 PM EDT Spoke to son who says that pt did not loose her medications. He will be bringing her to her appt on 01/25 with April. DAILY. * Telephone Encounter - Sydney Mckee OSA - 01/13/2024 4:44 PM EDT Abigail lost her medicine. Please help her get refills. Doxycycline Hyclate 100 MG Oral Capsule () Metoprolol Tartrate 25 MG Oral Tablet (Lopressor) Omeprazole 20 MG Oral Capsule Delayed Release (PriLOSEC) metFORMIN HCl ER 500 MG Oral Tablet Extended Release 24 Hour (Glucophage XR) Touangie SoloStar 300 UNIT/ML Subcutaneous Solution Pen-injector (Insulin Glargine (1 Unit Dial)) MAYBe Pen [place] 32G X 4 MM Please call to make sure everything is ok documented in this encounter Plan of Treatment Upcoming Encounters Date Type Department Care Team (Late st Contact Info) Description 01/26/2024 9:00 AM EDT Office Visit Family Practice [facility] [place] [address] [place] [address] Alin Savana Hien, JUDIT [address] [place] [address] Scheduled Procedures Name Priority Associated Diagnoses Date/Ti me COLONOSCOPY FLEXIBLE PROXIMA L DIAGNOSTIC Recall History of colonic polyps Health Maintenance Due Date Last Done Comments Zoster Vaccines (3 of 3) 04/01/2022 02/04/2022, 02/16 COVID-19 Vaccine (2022- season) 2023 04/27/2022, 09/30/2020, 09/09/2020 Depression Screening 07/20/2023 07/20/2022, 10/22/2015 (Discussed) Influenza Vaccine (FLU shot) (#1) 2024 04/12/2023, 04/27/2022, 04/08/2021, Additional history exists Albumin/Creatinine Ratio 04/21/20242 023, 11/12/2022, 11/30/2021, Additional history exists CKD HGB USE SMARTSET 24309 04/21/202404/21, 02/04/2022, 02/04/2022, Additional history exists CKD PHOS USE SMARTSET 39435 04/21/2024 1011/2022, 11/12/2022, 11/30/2021, Additional history exists HbA1c 04/26/2024 10/26/2023, 1011/2022, 11/12/2022, Additional history exists DTaP,Tdap,and Td Vaccines [...] Discontinued 03/30/2022, 03/30/2022, 10/25/2016, Additional history exists HPV (Gardasil) Vaccine Aged Out No lo [...] 7:41 AM 05/08/2008 10:46 AM Care Teams Supervisory Civil Engineer Relationship Specialty Start Date End Date Nikky Hayes DO [address] [place] [address] PCP - General Family Medicine 01/27/16 documented as of this encounter
--- OUTSIDE RECORDS SUMMARY | 2024-02-14 02:44 | External Medical Summary | Summary of Care ---
Author Name Unknown Organization [facility] Address [address] [address] Phone [phone] Care Team Providers Care Marketing Engineer Name Role Phone Nikky Hayes DO Primary Care Provider Reason for Visit * Reason Comments Medication Management Encounter Details Date Type Department Care Team (Late st Contact Info) Description 10/26/2023 11:00 AM EDT Office Visit Family [facility] [place] [address] [facility] [place] [address] Savaan Ogden PA-C [address] [facility] [place] [address] Type 2 diabetes mellitus with stage 3a chronic kidney disease, without long-term current use of insulin ([facility])*; Hypertensive kidney disease with stage 3a chronic kidney disease; HTN, goal below 140/90; Gastroesophageal reflux disease without esophagitis; DYSLIPIDEMIA, GOAL LDL BELOW 100; PAT (paroxysmal atrial tachycardia) ([facility]); Dysuria; Confused but orients easily Allergies Active Allergy Reactions Criticality Noted Date Comments Bactrim 11/29/2012 Rash Dust 03/27/2002 Sitagliptin 11/29/2016 Abdominal pain Empagliflozin 03/01/2019 rash Mold 01/01/2003 [place] 03/27/2002 Pollen 03/27/2002 Ranitidine Rash High 11/18/2018 Simvastatin 02/04/2006 Body aches and nausea documented as of this encounter (statuses as of 10/26/2023) Medications Medication Sig Dispensed Refills Start Date End Date Status OMEGA-3 1000 MG PO CAPS daily 0 6 Active MULTIVITAMINS PO TABS None Entered 0 Active CALCIUM + D 600-200 MG-UNIT PO TABS None Entered 0 Active ASPIRIN 81 MG PO TABS 1 daily 0 Active PROBIOTIC PRODUCT PO TABS 1 tablet daily 0 2 Active ONETOUCH DELICA LANCETS FINE MISCIndications:D M type 2, goal A1c below 7,DM type 2 nursing care encounter ([facility]) check blood sugar one time daily. DX: 250.00 1 Box 6 3 Active cetirizine (ZYRTEC) 10 MG Tablet Take 1 Tablet by mouth in the morning. 0 Active Glucose Blood (ONETOUCH ULTRA BLUE) STRPIndications:D M type 2 nursing care encounter ([facility]) Use one time daily for fluctuating blood sugars E11.22 100 Strip 3 9 Active clotrimazole (LOTRIMIN) 1 % creamIndications: Vaginal candidiasis Apply topically to affected area 2 times a day. To affacted area for two weeks. 14 g 1 0 Active Cinnamon 500 MG Oral Tablet Take 1 Tablet by mouth in the morning. 0 Active Triamcinolone Acetonide 0.1 % External Cream (Aristocort)Indic ations:Insect bite of throat, initial encounter Apply topically to affected area 2 times a day. To affected area. 60 g 5 3 Active Pen [place] 32G X 4 MM Use as directed. Once daily with insulin 100 Each 3 3 Active Toujeo SoloStar 300 UNIT/ML Subcutaneous Solution Pen-injector (Insulin Glargine (1 Unit Dial)) Inject 26 Units under the skin at bedtime. 4.5 mL 11 4 Active Metoprolol Tartrate 25 MG Oral Tablet (Lopressor)Indica tions:Hypertensiv e kidney disease with stage 3a chronic kidney disease (HCC),HTN, goal below 140/90,PAT (paroxysmal atrial tachycardia) ([facility]) Take 1 Tablet by mouth in the morning. With 100mg for a total of 125mg daily. 90 Tablet 3 4 Active Omeprazole 20 MG Oral Capsule Delayed Release (PriLOSEC) TAKE ONE CAPSULE BY MOUTH DAILY , MAY INCREASE TO 2 CAPSULES PER DAY 180 Capsule 2 4 Active Rosuvastatin Calcium 20 MG Oral Tablet (Crestor)Indicati ons:Dyslipidemia, goal LDL below 100 Take 1 Tablet by mouth in the morning. 90 Tablet 3 4 Active metFORMIN HCl ER 500 MG Oral Tablet Extended Release 24 Hour (Glucophage XR) Take 2 Tablets by mouth in the morning. 180 Tablet 3 4 Active Metoprolol Tartrate 25 MG Oral Tablet (Lopressor)Indica tions:HTN, goal below 140/90,Hypertensi ve kidney disease with stage 3a chronic kidney disease (HCC),PAT (paroxysmal atrial tachycardia) (HCC) Take 1 Tablet by mouth in the morning. With 100mg for a total of 125mg daily. 90 Tablet 3 3 10/26/19 24 Discontinued(Re fill) Omeprazole 20 MG Oral Capsule Delayed Release (PriLOSEC) TAKE ONE CAPSULE BY MOUTH DAILY , MAY INCREASE TO 2 CAPSULES PER DAY 180 Capsule 2 3 10/26/19 24 Discontinued(Re fill) Rosuvastatin Calcium 20 MG Oral Tablet (Crestor)Indicati ons:Dyslipidemia, goal LDL below 100 TAKE 1 TABLET BY MOUTH IN THE MORNING. 90 Tablet 0 3 10/26/19 24 Discontinued(Re fill) Zoster Vac Recomb Adjuvanted 50 MCG/0.5ML Intramuscular Suspension Reconstituted (Shingrix) Inject 0.5 mL into a large muscle now and repeat dose in 60 to 180 days 1 Each 1 4 10/26/19 24 Discontinued documented as of this encounter (statuses as [...] on file documented as of this encounter Last Filed Vital Signs Vital Sign Reading Time Taken Comments Blood Pressure 140/78 10/26/2023 11:54 AM EDT Pulse 77 10/26/2023 11:54 AM EDT Temperature 36.6 C (97.9 F) 10/26/2023 11:54 AM E DT Respiratory Rate 16 10/26/2023 11:54 AM EDT Oxygen Saturation 99% 10/26/2023 11:54 AM EDT Inhaled Oxygen Concentration - - Weight 72.6 kg (160 lb 1.9 oz) 10/26/2023 11:54 AM EDT Height - - Body Mass Index 25.08 04/21/2023 8:07 AM EDT documented in this encounter Progress Notes * Savana Ogden PA-C - 10/26/2023 11:59 AM EDT Images from the original note were not included. History of Present Illness Abigail Shaw is a 83 year old female that presents for Medication Management Patient is a 83 year old female who presents with her niece. They have some questions. She says sheis feeling well. Lost her health insurance for 2 years. Not clear on medicatios Denies chest pain, sob, palpitations, edema,headaches, dizzy Appetite good Sleep good Urination/ bowel movements good Physical Exam Vitals: 10/26/23 1154 Temp: 36.6 C (97.9 F) Pulse: 77 Resp: 16 SpO2: 99% BP: 140/78 BP Readings from Last 3 Encounters: 10/26/23 140/78 09/12/23 160/90 09/01/23 130/76 Wt Readings from Last 3 Encounters: 10/26/23 72.6 kg (160 lb 1.9 oz) 09/12/23 74.6 kg (164 lb 6.4 oz) 09/01/23 73.1 kg (161 lb 1.9 oz) General: alert, healthy, no distress, well nourished, well developed, comfortable, and cooperative Head: Normocephalic, No masses, lesions, tenderness or abnormalities Eye Exam: PERRLA, extraocular movements intact, conjunctiva are pink and non- injected, sclera clear Neck: supple, no adenopathy, no bruits, thyroid normal size, non-tender, without nodularity Heart: regular rate & rhythm, no murmur, and no gallops Lungs: chest symmetric with normal AP diameter, no chest deformities noted, normal respiratory rateand rhythm, no chest wall tenderness, diaphragmatic excursion normal, lungs clear to auscultation Extremities: less than 2 second capillary refill, no joint deformities, effusion, or inflammation, no edema, no skin discoloration, no clubbing, no cyanosis I have reviewed the following results: Hemoglobin A1C and BMP Assessment and Plan Type 2 diabetes mellitus with stage 3a chronic kidney disease, without long-term current use of insulin (HCC) (Primary) Hypertensive kidney disease with stage 3a chronic kidney disease - Metoprolol Tartrate 25 MG Oral Tablet (Lopressor); Take 1 Tablet by mouth in the morning. With 100mg for a total of 125mg daily. HTN, goal below 140/90 - Metoprolol Tartrate 25 MG Oral Tablet (Lopressor); Take 1 Tablet by mouth in the morning. With 100mg for a total of 125mg daily. Gastroesophageal reflux disease without esophagitis DYSLIPIDEMIA, GOAL LDL BELOW 100 - Rosuvastatin Calcium 20 MG Oral Tablet (Crestor); Take 1 Tablet by mouth in the morning. PAT (paroxysmal atrial tachycardia) (HCC) - Metoprolol Tartrate 25 MG Oral Tablet (Lopressor); Take 1 Tablet by mouth in the morning. With 100mg for a total of 125mg daily. Dysuria - URINALYSIS, REFLEX TO MICROSCOPIC; Future; Expected date: 10/26/2023 - CULTURE, URINE, QUANTITATIVE Confused but orients easily Other orders - Omeprazole 20 MG Oral Capsule Delayed Release (PriLOSEC); TAKE ONE CAPSULE BY MOUTH DAILY , MAY INCREASE TO 2 CAPSULES PER DAY - metFORMIN HCl ER 500 MG Oral Tablet Extended Release 24 Hour (Glucophage XR); Take 2 Tablets by mouth in the morning. Follow Up: Return in about 3 months (around 01/25/2024) for Clinic Visit. | For: Clinic Visit Wrap-Up Time: I spent a total of 30-39 minutes (exact time 38 mins) on the date of service in preparation, delivery, and documentation of the care provided to Abigail Shaw excluding any time spent in the performance of separately billed services. documented in this encounter Nursing Notes * Danita Law LPN - 10/26/2023 11:56 AM EDT Patient presents in office today to discuss medications. Is non compliant with insulin currently wanting to discuss a different option over daily insulin injection documented in this encounter Plan of Treatment Upcoming Encounters Date Type Department Care Team (Late st Contact Info) Description 01/26/2024 9:00 AM EDT Office Visit Family [facility]as Re[facility] [address] [place] [address] Savana Ogden PA-C [address] [place] [address] Pending Results Name Type Priority Associated Diagnoses Date /Time CULTURE, URINE, QUANTITATIVE Lab Routine Dysuria 10/26/2023 12:46 PM EDT [...] Additional history exists CKD HGB USE SMARTSET 06837 04/21/202404/21, 02/04/2022, 02/04/2022, Additional history exists CKD PHOS USE SMARTSET 29689 04/21/2024 10/0 11/2022, 11/12/2022, 11/30/2021, Additional history [...] Not on filedocumented as of this encounter Results * (ABNORMAL) URINALYSIS, REFLEX TO MICROSCOPIC (10/26/2023 12:46 PM EDT) Color, Urine Yellow Light Yellow, Yellow, Dark Yellow 10/26/2023 1:10 PM EDT [facility] [address] Clarity, Urine Clear Clear 10/26/2023 1:10 PM EDT [place] [address] Glucose, Urine >=1000(A) Negative mg/dL 10/26/2023 1:10 PM EDT [place] [address] Bilirubin, Urine Negative Negative 10/26/2023 1:10 PM EDT [place] [address] Ketone, Urine Negative Negative mg/dL 10/26/2023 1:10 PM EDT [place] [address] Specific [place], Urine 1.015 1.003 - 1.030 10/26/2023 1:10 PM EDT [place] [address] Blood, Urine Negative Negative 10/26/2023 1:10 PM EDT [place] [address] pH, Urine 6.0 5.0 - 7.5 Units 10/26/2023 1:10 PM EDT [place] [address] Protein, Urine Negative Negative mg/dL 10/26/2023 1:10 PM EDT [place] [address] Urobilinogen, Urine 0.2 0.2, 1.0 mg/dL 10/26/2023 1:10 PM EDT [place] [address] Nitrite, Urine Negative Negative 10/26/2023 1:10 PM EDT [place] [address] Esterase, Urine Trace(A) Negative 10/26/2023 1:10 PM EDT [place] [address] Urine Non-blood Collection / Unknown 10/26/2023 12:46 PM EDT 10/26/2023 12:46 PM EDT Savana A Alin [place] [facility] URINE ORDERABLES [facility] [id number] [facility] [place] [address] documented in this encounter Visit Diagnoses Diagnosis Type 2 diabetes mellitus with stage 3a chronic kidney disease, without long-term current use of insulin (HCC)- Primary Hypertensive kidney disease with stage 3a chronic kidney disease HTN, goal below 140/90 Unspecified essential hypertension Gastroesophageal reflux disease without esophagitis Esophageal reflux DYSLIPIDEMIA, GOAL LDL BELOW 100 Other and unspecified hyperlipidemia PAT (paroxysmal atrial tachycardia) (HCC) Paroxysmal supraventricular tachycardia Dysuria Confused but orients easily documented in this encounter Advance Directives Latest Code Status on File Code Status Date Activated Date Inactivated Comments Full Code 05/08/2008 10:46 AM 05/08/2008 5:20 PM Code Status History Code Status Date Activated Date Inactivated Comments Full Code 05/08/2008 7:41 AM 05/08/2008 10:46 AM Care Teams Marketing Engineer Relationship Specialty Start Date End Date Nikky Hayes DO [address] [facility] [address] PCP - General Family Medicine 01/27/16 documented as of this encounter"
--- OUTSIDE RECORDS SUMMARY | 2024-02-14 02:44 | External Medical Summary | Summary of Care ---
Author Name Unknown Organization [facility] Address [address] [facility] [place] [address] Phone [phone] Care Team Providers Care Dry Cell Battery Assembler Name Role Phone Savana Ogden PA-C Primary Care Provider Reason for Visit * Reason Comments Re-Check Encounter Details Date Type Department Care Team (Late st Contact Info) Description 01/26/2024 9:00 AM EDT Office Visit [facility] [address] [place] [address] Savana Ogden PA-C [address] [facility] [place] [address] Type 2 diabetes mellitus with stage 3a chronic kidney disease, without long-term current use of insulin ([facility])*; HTN, goal below 140/90; Need for shingles vaccine; Gastroesophageal reflux disease without esophagitis; DYSLIPIDEMIA, GOAL LDL BELOW 100 Allergies Active Allergy Reactions Criticality Noted Date Comments Bactrim 11/29/2012 Rash Dust 03/27/2002 Sitagliptin 11/29/2016 Abdominal pain Empagliflozin 03/01/2019 rash Mold 01/01/2003 [place] 03/27/2002 Pollen 03/27/2002 Ranitidine Rash High 11/18/2018 Simvastatin 02/04/2006 Body aches and nausea documented as of this encounter (statuses as of 01/26/2024) Medications Medication Sig Dispensed Refills Start Date End Date Status OMEGA-3 1000 MG PO CAPS daily 0 6 Active MULTIVITAMINS PO TABS None Entered Active CALCIUM + D 600-200 MG-UNIT PO TABS None Entered Active ASPIRIN 81 MG PO TABS 1 daily Active PROBIOTIC PRODUCT PO TABS 1 tablet daily 2 Active cetirizine (ZYRTEC) 10 MG Tablet Take 1 Tablet by mouth in the morning. Active clotrimazole (LOTRIMIN) 1 % creamIndications: Vaginal candidiasis Apply topically to affected area 2 times a day. To affacted area for two weeks. 14 g 1 0 Active Triamcinolone Acetonide 0.1 % External Cream (Aristocort)Indic ations:Insect bite of throat, initial encounter Apply topically to affected area 2 times a day. To affected area. 60 g 5 3 Active Metoprolol Tartrate 25 MG Oral Tablet [...] the morning. 180 Tablet 3 4 Active Zoster Vac Recomb Adjuvanted 50 MCG/0.5ML Intramuscular Suspension Reconstituted (Shingrix)Indicat ions:Need for shingles vaccine Inject 0.5 mL into a large muscle now and repeat dose in 60 to 180 days 1 Each 4 Active OneTouch Verio w/Device KitIndications:Ty pe 2 diabetes mellitus with stage 3a chronic kidney disease, without long-term current use of insulin (HCC) Use up to 4 times a day E11.9 1 Kit 4 Active OneTouch Verio In Vitro Strip (Glucose Blood)Indications :Type 2 diabetes mellitus with stage 3a chronic kidney disease, without long-term current use of insulin ([facility]) Use up to 4 times a day E11.9 100 Strip 11 4 Active OneTouch Delica Lancets 30GIndications:Ty pe 2 diabetes mellitus with stage 3a chronic kidney disease, without long-term current use of insulin ([facility]) Use up to 4 times a day 100 Each 3 4 Active ONETOUCH DELICA LANCETS FINE MISCIndications:D M type 2, goal A1c below 7,DM type 2 nursing care encounter ([facility]) check blood sugar one time daily. DX: 250.00 1 Box 6 3 01/26/20 24 Discontinued Glucose Blood (ONETOUCH ULTRA BLUE) STRPIndications:D M type 2 nursing care encounter ([facility]) Use one time daily for fluctuating blood sugars E11.22 100 Strip 3 9 01/26/20 24 Discontinued Cinnamon 500 MG Oral Tablet Take 1 Tablet by mouth in the morning. 01/26/20 24 Discontinued(Me dication List Clean Up) Pen [place] 32G X 4 MM Use as directed. Once daily with insulin 100 Each 3 3 01/26/20 24 Discontinued(Me dication List Clean Up) [place]ie SoloStar 300 UNIT/ML Subcutaneous Solution Pen-injector (Insulin Glargine (1 Unit Dial)) Inject 26 Units under the skin at bedtime. 4.5 mL 11 4 01/26/20 24 Discontinued(Jean Claude vogt preference/disc ontinuation) documented as of this encounter (statuses as [...] mRNA, LNP-s, No Pre serve, 2-Dose Series (SupplyBetter) 09/30/2020,09/09/2020 Covid-19, Mrna, Lnp-s, Pf, B ivalent, 30 Mcg, IM, 12 yrs and above (SupplyBetter) 04/27/2022 H1N1 2009 Influenza, IM 05/30/2009 PPD [...] Sign Reading Time Taken Comments Blood Pressure 124/62 01/26/2024 8:56 AM EDT Pulse 80 01/26/2024 8:56 AM EDT Temperature 36.5 C (97.7 F) 01/26/2024 8:56 AM ED T Respiratory Rate 18 01/26/2024 8:56 AM EDT Oxygen Saturation 96% 01/26/2024 8:56 AM EDT Inhaled Oxygen Concentration - - Weight 66.9 kg (147 lb 6.4 oz) 01/26/2024 8:56 A M EDT Height - - Body Mass Index 23.09 04/21/2023 8:07 AM EDT documented in this encounter Progress Notes * Alicia Yi LPN - 01/26/2024 10:01 AM EDT Pre-Administration Time Out Procedure Performed: Yes Patient Identified (Ask Name/Date of ): Yes Does the patient have a fever greater than 101 degrees today? No Patient allergic to latex? No Has the patient ever fainted after receiving an injection? No VFC Stock: No Immunization(s) verified: Yes, Immunization Name: Shingrix, VIS Sheet(s) given: Yes Verified Side and Site: Yes Verified Shot(s) with Parent(s)/Patient: Yes * Savana Ogden PA-C - 01/26/2024 9:25 AM EDT Images from the original note were not included. History of Present Illness Abigail Shaw is a 83 year old female that presents for Re-Check Patient is a 83 year old female who presents for a follow up. Her son is present. Denies chest pain, sob, palpitations, edema, headaches , dizzy Appetite fair Sleep good Urination/ bowel movements good Physical Exam Vitals: 01/26/24 0856 Temp: 36.5 C (97.7 F) Pulse: 80 Resp: 18 SpO2: 96% BP: 124/62 BP Readings from Last 3 Encounters: 01/26/24 124/62 10/26/23 140/78 09/12/23 160/90 Wt Readings from Last 3 Encounters: 01/26/24 66.9 kg (147 lb 6.4 oz) 10/26/23 72.6 kg (160 lb 1.9 oz) 09/12/23 74.6 kg (164 lb 6.4 oz) General: alert, healthy, no distress, well [...] no skin discoloration, no clubbing, no cyanosis Neuro Exam: alert & oriented x 3 with fluent speech, no focal motor/sensory deficits, gait normal I have reviewed the following results: Hemoglobin A1C and BMP Assessment and Plan Need for shingles vaccine (Primary) - Zoster Vac Recomb Adjuvanted 50 MCG/0.5ML Intramuscular Suspension Reconstituted (Shingrix); Inject 0.5 mL into a large muscle now and repeat dose in 60 to 180 days - ZOSTER VACCINE RECOMB, 2 DOSE, IM (SHINGRIX) Type 2 diabetes mellitus with stage 3a chronic kidney disease (HCC) - ALBUMIN / CREATININE RATIO, URINE; Future; Expected date: 01/26/2024 - HEMOGLOBIN A1C; Future; Expected date: 01/26/2024 - OneTouch Verio w/Device Kit; Use up to 4 times a day E11.9 - OneTouch Verio In Vitro Strip (Glucose Blood); Use up to 4 times a day E11.9 - OneTouch Delica Lancets 30G; Use up to 4 times a day - BASIC METABOLIC PANEL; Future; Expected date: 01/26/2024 HTN, goal below 140/90 Type 2 diabetes mellitus with diabetic peripheral angiopathy without gangrene, with long-term current use of insulin (HCC) Gastroesophageal reflux disease without esophagitis DYSLIPIDEMIA, GOAL LDL BELOW 100 Follow Up: Return in about 3 months (around 04/27/2024). Wrap-Up Time: I spent a total of 40-54 minutes (exact time 45 mins) on the date of service in preparation, delivery, and documentation of the care provided to Abigail Shaw excluding any time spent in the performance of separately billed services. documented in this encounter Nursing Notes * Alicia Yi LPN - 01/26/2024 8:51 AM EDT Abigail Shaw presents for 3 month recheck. Medications & HM reviewed. documented in this encounter Plan of Treatment Upcoming Encounters Date Type Department Care Team (Late st Contact Info) Description 04/30/2024 8:00 AM EDT [facility] [place] [address] [place] [address] Savana Ogden PA-C [address] [place] [address] Pending Results Name Type Priority Associated Diagnoses Date /Time ALBUMIN / CREATININE RATIO, URINE Lab Routine Type 2 diabetes mellitus with stage 3a chronic kidney disease (HCC) 01/26/2024 10:13 AM EDT HEMOGLOBIN A1C Lab Routine Type 2 diabetes mellitus with stage 3a chronic kidney disease (HCC) 01/26/2024 10:13 AM EDT Scheduled Orders Name Type Priority Associated Diagnoses Orde r Schedule ALBUMIN / CREATININE RATIO, URINE Lab Routine Type 2 diabetes mellitus with stage 3a chronic kidney disease, without long-term current use of insulin (HCC) Expected: 01/26/2024, Expires: 01/25/2025 HEMOGLOBIN A1C Lab Routine Type 2 diabetes mellitus with stage 3a chronic kidney disease, without long-term current use of insulin (HCC) Expected: 01/26/2024 (Approximate), Expires: 01/25/2025 Scheduled Procedures Name Priority Associated Diagnoses Date/Ti [...] Additional history exists CKD HGB USE SMARTSET 72836 04/21/202404/21, 02/04/2022, 02/04/2022, Additional history exists CKD PHOS USE SMARTSET 29908 04/21/202411/2022, 11/12/2022, 11/30/2021, Additional history exists HbA1c [...] as of this encounter Results * (ABNORMAL) BASIC METABOLIC PANEL (01/26/2024 10:13 AM EDT) BUN 27(H) 6 - 20 mg/dL 01/26/2024 11:14 AM EDT [facility] [place] [facility]-02 Creatinine 0.9 0.5 - 1.0 mg/dL 01/26/2024 11:14 AM EDT [facility] [place] 56-02 Estimated Glomerular Filtration Rate 63 >=60 mL/min 01/26/2024 11:14 AM EDT [facility] [place] 56-02 Comment:eGFR is calculated b ased on the CKD-EPI 2020 equation Sodium 138 135 - 146 mmol/L 01/26/2024 11:14 AM EDT [facility] [place] 56-02 Potassium 4.8 3.5 - 5.1 mmol/L 01/26/2024 11:14 AM EDT [facility] 56- Chloride 101 98 - 107 mmol/L 01/26/2024 11:14 AM EDT [place] [address] CO2 27 22 - 32 mmol/L 01/26/2024 11:14 AM EDT [facility] 56 Anion Gap 10 7 - 15 mmol/L 01/26/2024 11:14 AM EDT [facility] 56 Glucose 368(H) 70 - 120 mg/dL 01/26/2024 11:14 AM EDT [facility] 56 Calcium 10.4(H) 8.4 - 10.2 mg/dL 01/26/2024 11:14 AM EDT [facility] 56 Blood Venous blood specimen / Unknown Venipuncture / Unknown 01/26/2024 10:13 AM EDT 01/26/2024 10:13 AM EDT October Hien Ogden PA-C LAB BLOOD ORDERABLES [facility] 56 [address] [facility] [place] [address] documented in this encounter Visit Diagnoses Diagnosis Type 2 diabetes mellitus with stage 3a chronic kidney disease, without long-term current use of insulin (HCC)- Primary HTN, goal below 140/90 Unspecified essential hypertension Need for shingles vaccine Need for prophylactic vaccination and inoculation against other viral diseases Gastroesophageal reflux disease without esophagitis Esophageal reflux DYSLIPIDEMIA, GOAL LDL BELOW 100 Other and unspecified hyperlipidemia documented in this encounter Advance Directives * Full Code (Latest Code Status on File) Date Activated Date Inactivated Comments 05/08/2008 10:46 AM 05/08/2008 5:20 PM * Full Code Date Activated Date Inactivated Comments 05/08/2008 7:41 AM 05/08/2008 10:46 AM Care Teams Dry Cell Battery Assembler Relationship Specialty Start Date End Date Savana Ogden [facility] [address] [facility] [place] [address] PCP - General Physician Register Of Deeds 01/25/24 documented as of this encounter
--- OUTSIDE RECORDS SUMMARY | 2024-02-14 02:45 | External Medical Summary ---
Author Name Unknown Address Unknown Organization K09:[facility] [address] [place] [address] Laboratory Report Ordering Provider Test Date Status 10/26/2023 12:46:38 Final Observation Date Value Abnormality Reference (Units ) Status Color of Urine by Auto 10/26/2023 12:46:38 Yellow Light Yellow, Yellow, Dark Yellow Final Clarity, Urine 10/26/2023 12:46:38 Clear Clear Final Glucose [Mass/volume] in Urine by Automated test strip 10/26/2023 12:46:38 >=1000 Abnormal Negative (mg/dL) Final Bilirubin.total [Presence] in Urine by Automated test strip 10/26/2023 12:46:38 Negative Negative Final Ketones [Mass/volume] in Urine by Automated test strip 10/26/2023 12:46:38 Negative Negative (mg/dL) Final Specific gravity, Urine 10/26/2023 12:46:38 1.015 1.003-1.030 Final Hemoglobin [Presence] in Urine by Automated test strip 10/26/2023 12:46:38 Negative Negative Final pH, Urine 10/26/2023 12:46:38 6.0 5.0-7.5 (Units) Final Protein [Mass/volume] in Urine by Automated test strip 10/26/2023 12:46:38 Negative Negative (mg/dL) Final Urobilinogen [Mass/volume] in Urine by Automated test strip 10/26/2023 12:46:38 0.2 0.2, 1.0 (mg/dL) Final Nitrite [Presence] in Urine by Automated test strip 10/26/2023 12:46:38 Negative Negative Final Leukocyte esterase [Presence] in Urine by Automated test strip 10/26/2023 12:46:38 Trace Abnormal Negative Final Performing Location [facility] [address] [place] [address]
--- OUTSIDE RECORDS SUMMARY | 2024-02-14 02:45 | External Medical Summary | Summary of Care ---
Author Name Unknown Organization [facility] Address [address] [place] [address] Phone [phone] Care Team Providers Care Pipe Wrapping Machine Operator Name Role Phone Nikky Hayes DO Primary Care Provider Encounter Details Date Type Department Care Team (Late st Contact Info) Description 09/15/2023 Telephone Family Practice [facility] [address] [place] [address] Nikky Hayes DO [address] [place] [address] Allergies Active Allergy Reactions Criticality Noted Date Comments Bactrim 11/29/2012 Rash Dust 03/27/2002 Sitagliptin 11/29/2016 Abdominal pain Empagliflozin 03/01/2019 rash Mold 01/01/2003 [place] 03/27/2002 Pollen 03/27/2002 Ranitidine Rash High 11/18/2018 Simvastatin 02/04/2006 Body aches and nausea documented as of this encounter (statuses as of 09/15/2023) Medications Medication Sig Dispensed Refills Start Date [...] BLUE) STRPIndications:DM type 2 nursing care encounter ([facility]) Use one time daily for fluctuating blood sugars E11.22 100 Strip 3 06/06/2019 Active clotrimazole (LOTRIMIN) 1 % creamIndications:Va ginal candidiasis Apply topically to affected area 2 times a day. To affacted area for two weeks. 14 g 1 11/28/2019 Active Cinnamon 500 MG Oral Tablet Take 1 Tablet by mouth in the morning. 0 Active Metoprolol Tartrate 25 MG Oral Tablet (Lopressor)Indicati ons:HTN, goal below 140/90,Hypertensive kidney disease with stage 3a chronic kidney disease (HCC),PAT (paroxysmal atrial tachycardia) Take 1 Tablet by mouth in the morning. With 100mg for a total of 125mg daily. 90 Tablet 3 11/12/2022 Active Omeprazole 20 MG Oral Capsule Delayed Release (PriLOSEC) TAKE ONE CAPSULE BY MOUTH DAILY , MAY INCREASE TO 2 CAPSULES PER DAY 180 Capsule 2 12/06/2022 Active Triamcinolone Acetonide 0.1 % External Cream (Aristocort)Indicat ions:Insect bite of throat, initial encounter Apply topically to affected area 2 times a day. To affected area. 60 g 5 04/12/2023 Active Pen [place] 32G X 4 MM Use as directed. Once daily with insulin 100 Each 3 05/27/2023 Active Rosuvastatin Calcium 20 MG Oral Tablet (Crestor)Indication s:Dyslipidemia, goal LDL below 100 TAKE 1 TABLET BY MOUTH IN THE MORNING. 90 Tablet 0 06/03/2023 4 Active Toujeo SoloStar 300 UNIT/ML Subcutaneous Solution Pen-injector (Insulin Glargine (1 Unit Dial)) Inject 26 Units under the skin at bedtime. 4.5 mL 11 08/04/2023 Active Mupirocin 2 % External Ointment (Bactroban)Indicati ons:Finger lesion Apply topically to affected area 3 times a day for up to 14 days. 22 g 1 09/01/2023 4 Active Doxycycline Hyclate 100 MG Oral CapsuleIndications: Finger lesion Take 1 Capsule by mouth in the morning and 1 Capsule before bedtime. Do all this for 7 days. 14 Capsule 0 09/01/2023 Active Zoster Vac Recomb Adjuvanted 50 MCG/0.5ML Intramuscular Suspension Reconstituted (Shingrix) Inject 0.5 mL into a large muscle now and repeat dose in 60 to 180 days 1 Each 1 09/12/2023 Active documented as of this encounter (statuses as of 09/15/2023) Active Problems Problem Noted Date Diagnosed Date [...] as of this encounter (statuses as of 09/15/2023) Resolved Problems Problem Noted Date Diagnosed Date [...] as of this encounter (statuses as of 09/15/2023) Immunizations Name Administration Dates Next Due COVID-19 mRNA, LNP-s, No Pre serve, 2-Dose Series ([employer]unch a [employer]) 09/30/2020,09/09/2020 Covid-19, Mrna, Lnp-s, Pf, B ivalent, [...] encounter Miscellaneous Notes * Telephone Encounter - Dunia Palumbo RN - 09/15/2023 8:53 AM EST Patients supplemental insurance has changed to [facility] for life and scripts will need to go to [facility]. Please contact Colleen [place] who is her POA. [phone]. documented in this encounter Plan of Treatment Upcoming Encounters Date Type Department Care Team (Late st Contact Info) Description 10/24/2023 8:00 AM EDT Office Visit Family Practice [facility] [place] [address] [facility] [place] [address] Savana Ogden PA-C [address] [facility] [place] [address] Scheduled Procedures Name Priority Associated Diagnoses Date/Ti [...] Additional history exists CKD HGB USE SMARTSET 85678 04/21/202404/213, 02/04/2022, 02/04/2022, Additional history exists CKD PHOS USE SMARTSET 66752 04/21/2024 10/0 11/2022, 11/12/2022, 11/30/2021, Additional history [...] AM 05/08/2008 10:46 AM Care Teams Pipe Wrapping Machine Operator Relationship Specialty Start Date End Date Nikky Hayes DO [address] [place] [address] PCP - General Family Medicine 01/27/16 documented as of this encounter
--- OUTSIDE RECORDS SUMMARY | 2024-02-14 02:45 | External Medical Summary | Summary of Care ---
Author Name Unknown Organization [facility] Address [address] [place] [address] Phone [phone] Care Team Providers Care Square Cutter Name Role Phone Nikky Hayes DO Primary Care Provider Encounter Details Date Type Department Care Team (Late st Contact Info) Description 09/15/2023 Telephone Family Practice [facility] [address] [place] [address] Nikky Hayes DO [address] [place] [address] Allergies Active Allergy Reactions Criticality Noted Date Comments Bactrim 11/29/2012 Rash Dust 03/27/2002 Sitagliptin 11/29/2016 Abdominal pain Empagliflozin 03/01/2019 rash Mold 01/01/2003 [place] 03/27/2002 Pollen 03/27/2002 Ranitidine Rash High 11/18/2018 [...] BLUE) STRPIndications:DM type 2 nursing care encounter ([facility]) Use one time daily for fluctuating blood [...] area. 60 g 5 04/12/2023 Active Pen [place] 32G X 4 MM Use as directed. [...] mRNA, LNP-s, No Pre serve, 2-Dose Series (iMER) 09/30/2020,09/09/2020 Covid-19, Mrna, Lnp-s, Pf, B ivalent, [...] EST Patients supplemental insurance has changed to [facility] for life and scripts will need to go to [facility]. Please contact Colleen [place] who is her POA. [phone]. documented in this encounter Plan of Treatment Upcoming Encounters Date Type Department Care Team (Late st Contact Info) Description 10/24/2023 8:00 AM EDT Office Visit Family Practice [facility] [place] [address] [facility] [place] [address] Savana Ogden PA-C [address] [facility] [place] [address] Scheduled Procedures Name Priority Associated Diagnoses Date/Ti [...] Additional history exists CKD HGB USE SMARTSET 02210 04/21/202404/213, 02/04/2022, 02/04/2022, Additional history exists CKD PHOS USE SMARTSET 82434 04/21/2024 10/0 11/2022, 11/12/2022, 11/30/2021, Additional history [...] 7:41 AM 05/08/2008 10:46 AM Care Teams Square Cutter Relationship Specialty Start Date End Date Nikky Hayes DO [address] [place] [address] PCP - General Family Medicine 01/27/16 documented as of this encounter
--- OUTSIDE RECORDS SUMMARY | 2024-02-14 02:45 | External Medical Summary ---
Author Name Unknown Address Unknown Organization K01:[facility] [address] [facility] [address] Laboratory Report Ordering Provider Test Date Status 10/26/2023 12:50:58 Final Observation Date Value Abnormality Reference (Units ) Status HbA1C 10/26/2023 12:50:58 12.4 Above high normal 4. 0-5.6 (%) Final The use of HbA1c to monitor glycemic status is based on normal hemoglobin and HbA composition. This test should not be used in patients with abnormal hemoglobin that affects the half life of the red blood cell or the in vivo glycation rates. Glucose, estimated average 10/26/2023 12:50:58 309 Above high normal <126 (mg/dL) Hardy wallace Performing Location [facility] [address] [facility] [address]
--- OUTSIDE RECORDS SUMMARY | 2024-02-14 02:45 | External Medical Summary | Summary of Care ---
Author Name Unknown Organization [facility] Address [address] [facility] [address] Phone [phone] Care Team Providers Care Mass Spectrometry Manager Name Role Phone Nikky Hayes DO Primary Care Provider Reason for Visit * Reason Onset Date Comments Advice 09/15/2023 Encounter Details Date Type Department Care Team (Late st Contact Info) Description 09/15/2023 Telephone Family Practice [facility] [place] [address] [facility] [place] [address] Nikky Hayes DO [address] [facility] [place] [address] Advice Allergies Active Allergy Reactions Criticality Noted Date Comments Bactrim 11/29/2012 Rash Dust 03/27/2002 Sitagliptin 11/29/2016 Abdominal pain Empagliflozin 03/01/2019 rash Mold 01/01/2003 [place] 03/27/2002 Pollen 03/27/2002 Ranitidine Rash High 11/18/2018 Simvastatin 02/04/2006 Body aches and nausea documented as of this encounter (statuses as of 09/16/2023) Medications Medication Sig Dispensed Refills Start Date [...] BLUE) STRPIndications:DM type 2 nursing care encounter ([facility]) Use one time daily for fluctuating [...] area. 60 g 5 04/12/2023 Active Pen [place] 32G X 4 MM Use as directed. Once daily with insulin 100 Each 3 05/27/2023 Active Rosuvastatin Calcium 20 MG Oral Tablet (Crestor)Indication s:Dyslipidemia, goal LDL below 100 TAKE 1 TABLET BY MOUTH IN THE MORNING. 90 Tablet 0 06/03/2023 Active Toujeo SoloStar 300 UNIT/ML Subcutaneous Solution [...] for 7 days. 14 Capsule 0 09/01/2023 4 Active Zoster Vac Recomb Adjuvanted 50 MCG/0.5ML Intramuscular Suspension Reconstituted (Shingrix) Inject 0.5 mL into a large muscle now and repeat dose in 60 to 180 days 1 Each 1 09/12/2023 Active documented as of this encounter (statuses as of 09/16/2023) Active Problems Problem Noted Date Diagnosed Date [...] as of this encounter (statuses as of 09/16/2023) Resolved Problems Problem Noted Date Diagnosed Date [...] as of this encounter (statuses as of 09/16/2023) Immunizations Name Administration Dates Next Due COVID-19 mRNA, LNP-s, No Pre serve, 2-Dose Series ([employer]) 09/30/2020,09/09/2020 Covid-19, Mrna, Lnp-s, Pf, B ivalent, [...] encounter Miscellaneous Notes * Telephone Encounter - Dyana Clement LPN - 09/16/2023 12:12 PM EST Called, left message for Karol Nesbitt to return call. * Telephone Encounter - Dunia Palumbo RN - 09/15/2023 8:53 AM EST Patients supplemental insurance has changed to [facility] for life and scripts will need to go to [facility]. Please contact Karol Ramirez who is her POA. [phone]. documented in this encounter Plan of Treatment Upcoming Encounters Date Type Department Care Team (Late st Contact Info) Description 10/24/2023 8:00 AM EDT Office Visit [facility] [address] [place] [address] Savana Ogden PA-C [address] [place] [address] Scheduled Procedures Name Priority Associated Diagnoses Date/Ti [...] Additional history exists CKD HGB USE SMARTSET 75289 04/21/202404/21, 02/04/2022, 02/04/2022, Additional history exists CKD PHOS USE SMARTSET 68978 04/21/2024 10/0 11/2022, 11/12/2022, 11/30/2021, Additional history [...] 7:41 AM 05/08/2008 10:46 AM Care Teams Mass Spectrometry Manager Relationship Specialty Start Date End Date Nikky Hayes DO [address] [place] [address] PCP - General Family Medicine 01/27/16 documented as of this encounter
--- OUTSIDE RECORDS SUMMARY | 2024-02-14 02:45 | External Medical Summary ---
Author Name Unknown Address Unknown Organization [id number]:[facility] [place] [address] [place] [id number] Laboratory Report Ordering Provider Test Date Status 10/26/2023 12:46:38 Final Observation Date Value Abnormality Reference (Units) Status Bacteria identified in Specimen by Culture 10/26/2023 12:46:38 No significant growth Final Test: Culture, Urine, Quanti tative
Specimen Source: Urine, Clean Catch
Specimen Type: Urine
Specimen Date: 10/26/2023 12:46 PM
Result Date: 10/27/2023 11:37 AM
Result Status: Final result
Resulting Lab: [facility] [place]
[address]
[place] [id number]

CULTURE

No significant growth

null Performing Location [facility] [place] - [address] [facility] [id number]
--- OUTSIDE RECORDS SUMMARY | 2024-02-14 02:45 | External Medical Summary ---
Author Name Unknown Address Unknown Organization [id number]:[facility] [place] [address] Laboratory Report Ordering Provider Test Date Status 10/26/2023 12:46:38 Final Observation Date Value Abnormality Reference (Units ) Status RBC, Urine 10/26/2023 12:46:38 0-2 0-2 (/HPF) Final WBC, Urine 10/26/2023 12:46:38 6-9 Abnormal 0-2 (/HPF) Final Bacteria [#/area] in Urine sediment by Microscopy high power field 10/26/2023 12:46:38 26-50 Abnormal 0-25 (/HPF) Final Performing Location [facility] [place] [address]
--- OUTSIDE RECORDS SUMMARY | 2024-02-14 02:45 | External Medical Summary | Summary of Care ---
Author Name Unknown Organization [facility] Address [address] [facility] [address] Phone [phone] Care Team Providers Care System Software Developer Name Role Phone Nikky Hayes DO Primary Care Provider Reason for Visit * Reason Comments Medication Refill Encounter Details Date Type Department Care Team (Late st Contact Info) Description 09/12/2023 Refill Cardiology, [facility] [address] [place] [address] Kelin Almonte CRNP [address] [place] [address] Allergies Active Allergy Reactions Criticality Noted Date Comments Bactrim 11/29/2012 Rash Dust 03/27/2002 Sitagliptin 11/29/2016 Abdominal pain Empagliflozin 03/01/2019 rash Mold 01/01/2003 [place] 03/27/2002 Pollen 03/27/2002 Ranitidine Rash High 11/18/2018 Simvastatin 02/04/2006 Body aches and nausea documented as of this encounter (statuses as of 09/12/2023) Medications Medication Sig Dispensed Refills Start Date [...] area. 60 g 5 04/12/2023 Active Pen [place] 32G X 4 MM Use as directed. [...] as of this encounter (statuses as of 09/12/2023) Active Problems Problem Noted Date Diagnosed Date [...] as of this encounter (statuses as of 09/12/2023) Resolved Problems Problem Noted Date Diagnosed Date [...] as of this encounter (statuses as of 09/12/2023) Immunizations Name Administration Dates Next Due COVID-19 [...] Frequency of Alcohol Consumption 2-4 times a mon th 04/29/2020 Average Number of Drinks 1 or 2 [...] encounter Miscellaneous Notes * Telephone Encounter - Kelin Almonte CRNP - 09/12/2023 3:45 PM EST Refused Prescriptions: Disp Refills Metoprolol Succinate ER 100 MG Oral Tablet*90 Tab*3 Sig: TAKE 1TABLET BY MOUTH IN THE MORNING.Refused By: KELIN ALMONTEeason for Refusal: Dose needs clarif ication * Telephone Encounter - Kelin Almonte CRNP - 09/12/2023 3:45 PM EST Patient has not been seen in quite some time. It also looks like she has metoprolol succinate and tartrate on her list. This should not be the case. Can we call and follow up with the patient. She will need to see cardiology if she wants refills. documented in this encounter Plan of Treatment Upcoming Encounters Date Type Department Care Team (Late st Contact Info) Description 10/24/2023 8:00 AM EDT Office Visit Family Practice [facility] [place] [address] [place] [address] Savana Ogden PA-C [address] [facility] [place] [address] Scheduled Procedures Name Priority Associated Diagnoses Date/Ti me COLONOSCOPY FLEXIBLE PROXIMA L DIAGNOSTIC Recall History of colonic polyps Health Maintenance Due Date Last Done Comments Zoster Vaccines (3 of 3) 04/01/2022 02/04/2022, 02/16 COVID-19 Vaccine (4 - season) 2023 04/27/2022, 09/30/2020, 09/09/2020 Depression Screening 07/20/2023 07/20/2022, 10/22/2015 (Discussed) HbA1c 10/21/2023 04/21/2023, 10/17, 05/21/2022, Additional history exists Albumin/Creatinine Ratio 04/21/2024 023, 11/12/2022, 11/30/2021, Additional history exists CKD HGB USE SMARTSET 22007 04/21/202404/21, 02/04/2022, 02/04/2022, Additional history exists CKD PHOS USE SMARTSET 41117 04/21/2024 10/0 11/2022, 11/12/2022, 11/30/2021, Additional history [...] 7:41 AM 05/08/2008 10:46 AM Care Teams System Software Developer Relationship Specialty Start Date End Date Nikky Hayes DO [facility] [place] [address] PCP - General Family Medicine 01/27/16 documented as of this encounter
--- OUTSIDE RECORDS SUMMARY | 2024-02-14 02:46 | External Medical Summary | Summary of Care ---
Author Name Unknown Organization [facility] Address [address] [facility] [place] [address] Phone [phone] Care Team Providers Care Seam Closer Name Role Phone Nikky Hyaes DO Primary Care Provider Encounter Details Date Type Department Care Team (Late st Contact Info) Description 09/02/2023 Orders Only PATIENT PORTAL DO NOT DELETE THIS DEPT USED BY [place] [id number] Allergies Active Allergy Reactions Criticality Noted Date Comments Bactrim 11/29/2012 Rash Dust 03/27/2002 Sitagliptin 11/29/2016 Abdominal pain Empagliflozin 03/01/2019 rash Mold 01/01/2003 [place] 03/27/2002 Pollen 03/27/2002 Ranitidine Rash High 11/18/2018 Simvastatin 02/04/2006 Body aches and nausea documented as of this encounter (statuses as of 09/02/2023) Medications Medication Sig Dispensed Refills Start Date [...] BLUE) STRPIndications:DM type 2 nursing care encounter ([facility]) Use one time daily for fluctuating blood sugars E11.22 100 Strip 3 06/06/2019 Active clotrimazole (LOTRIMIN) 1 % creamIndications:V aginal candidiasis Apply topically to affected area 2 times a day. To affacted area for two weeks. 14 g 1 11/28/2019 Active Additional Information Patient not taking.Reported on 09/01/2023 Cinnamon 500 MG Oral Tablet Take 1 Tablet by mouth in the morning. 0 Active Metoprolol Tartrate 25 MG Oral Tablet (Lopressor)Indicat ions:HTN, goal below 140/90,Hypertensiv e kidney disease with stage 3a chronic [...] Active Triamcinolone Acetonide 0.1 % External Cream (Aristocort)Indica tions:Insect bite of throat, initial encounter Apply topically to affected area 2 times a day. To affected area. 60 g 5 04/12/2023 Active Pen [place] 32G X 4 MM Use as directed. Once daily with insulin 100 Each 3 05/27/2023 Active Rosuvastatin Calcium 20 MG Oral Tablet (Crestor)Indicatio ns:Dyslipidemia, goal LDL below 100 TAKE 1 TABLET BY MOUTH IN THE MORNING. 90 Tablet 0 06/03/2023 06/02/2024 Active Toujeo SoloStar 300 UNIT/ML Subcutaneous Solution Pen-injector (Insulin Glargine (1 Unit Dial)) Inject 26 Units under the skin at bedtime. 4.5 mL 11 08/04/2023 Active Mupirocin 2 % External Ointment (Bactroban)Indicat ions:Finger lesion Apply topically to affected area 3 times a day for up to 14 days. 22 g 1 09/01/2023 09/15/2023 Active Doxycycline Hyclate 100 MG Oral CapsuleIndications :Finger lesion Take 1 Capsule by mouth in the morning and 1 Capsule before bedtime. Do all this for 7 days. 14 Capsule 0 09/01/2023 09/08/2023 Active documented as of this encounter (statuses as of 09/02/2023) Active Problems Problem Noted Date Diagnosed Date [...] as of this encounter (statuses as of 09/02/2023) Resolved Problems Problem Noted Date Diagnosed Date [...] as of this encounter (statuses as of 09/02/2023) Immunizations Name Administration Dates Next Due COVID-19 mRNA, LNP-s, No Pre serve, 2-Dose Series (gloStream) 09/30/2020,09/09/2020 Covid-19, Mrna, Lnp-s, Pf, B ivalent, 30 Mcg, IM, 12 yrs and above (gloStream) 04/27/2022 H1N1 2009 Influenza, IM 05/30/2009 PPD [...] 8:00 AM EDT Office Visit [facility] [place] [address] [place] [address] Savana Ogden PA-C [address] [facility] [place] [address] Scheduled Procedures Name Priority Associated Diagnoses Date/Ti me COLONOSCOPY FLEXIBLE PROXIMA L DIAGNOSTIC Recall History of colonic polyps Health Maintenance Due Date Last Done Comments Hepatitis B (1 of 3 - Risk 3-dose series) 1998 Zoster Vaccines (3 of 3) 04/01/2022 02/04/2022, 02/16 COVID-19 Vaccine ( season) 2023 04/27/2022, 09/30/2020, 09/09/2020 Depression Screening 07/20/2023 07/20/2022, 10/22/2015 (Discussed) HbA1c 10/21/2023 04/21/2023, 10/17, 05/21/2022, Additional history exists Albumin/Creatinine Ratio 04/21/2024 023, 11/12/2022, 11/30/2021, Additional history exists CKD HGB USE SMARTSET 75872 04/21/202404/21, 02/04/2022, 02/04/2022, Additional history exists CKD PHOS USE SMARTSET 06666 04/21/2024 10/0 11/2022, 11/12/2022, 11/30/2021, Additional history [...] 7:41 AM 05/08/2008 10:46 AM Care Teams Seam Closer Relationship Specialty Start Date End Date Nikky Hayes DO [address] [place] [address] PCP - General Family Medicine 01/27/16 documented as of this encounter
--- OUTSIDE RECORDS SUMMARY | 2024-02-14 02:46 | External Medical Summary | Summary of Care ---
Author Name Unknown Organization [facility] Address [address] [place] [address] Phone [phone] Care Team Providers Care City Distribution Clerk Name Role Phone Nikky Hayes DO Primary Care Provider Reason for Referral * Evaluate & Treat - Unlimited Visits (Within 10 days (routine)) - Authorized Specialty Diagnoses / Procedures Referred By Marlene del angel Referred To Contact Podiatry Diagnoses Type 2 diabetes mellitus with diabetic peripheral angiopathy without gangrene, with long-term current use of insulin ([facility]) Nikky Hayes DO [address] [facility] [place] [address] Referral ID Status Reason Start Date Expiration Date Visits Requested Visits Authorized [id number] Authorized Specialty Services Required 08/17/[phone] Question Answer Referral Priority Within 10 days (routine) Where should this appointment be scheduled? [facility] Which condition are you referring this patient for? Diabetic foot care/pain Specific condition? Diabetic Foot care Medicare Patient? Yes Can Patient perform routine footcare without assistance? No Does patient have a chronic condition? Yes Has patient been seen in the past 6 months? Yes Date last seen for chronic condition: 05/24/2023 Who saw patient for chronic condition? Dr. Nikky Hayes Reason for Visit * Reason Onset Date Comments Referral 08/17/2023 Encounter Details Date Type Department Care Team (Late st Contact Info) Description 08/17/2023 Telephone Family Practice [facility] [address] [place] [address] Nikky Hayes, DO [address] [place] [address] Referral Allergies Active Allergy Reactions Criticality Noted Date Comments Bactrim 11/29/2012 Rash Dust 03/27/2002 Sitagliptin 11/29/2016 Abdominal pain Empagliflozin 03/01/2019 rash Mold 01/01/2003 [place] 03/27/2002 Pollen 03/27/2002 Ranitidine Rash High 11/18/2018 Simvastatin 02/04/2006 Body aches and nausea documented as of this encounter (statuses as of 08/18/2023) Medications Medication Sig Dispensed Refills Start Date [...] area. 60 g 5 04/12/2023 Active Pen [place] 32G X 4 MM Use as directed. [...] as of this encounter (statuses as of 08/18/2023) Active Problems Problem Noted Date Diagnosed Date [...] as of this encounter (statuses as of 08/18/2023) Resolved Problems Problem Noted Date Diagnosed Date [...] as of this encounter (statuses as of 08/18/2023) Immunizations Name Administration Dates Next Due COVID-19 [...] encounter Miscellaneous Notes * Telephone Encounter - Lisseth Castro OSA - 08/18/2023 2:13 PM EST Faxed appointment Request. [id number] * Telephone Encounter - Wayne Joseph DO - 08/17/2023 4:08 PM EST Please call to set up with selected doctor * Telephone Encounter - Frances Mills LPN - 08/17/2023 3:55 PM EST Podiatry referral pended if agreeable. * Telephone Encounter - Celestino Iglesias OSA - 08/17/2023 2:36 PM EST Has the patient been seen for this problem? (Y/N)?: No. If No, an appt needs to be scheduled before a referral will be placed (exception: proceed with referral request if referral request is for a yearly routine appointment with speciality) Patient Name: Abigail Shaw Patient Primary care provider: Nikky Hayes, DO Does this need to be an insurance referral (Y/N)?: Yes. If Yes, does the insurance referral need to be placed into the [employer] system? Name of preferred specialist: Dr.Kaitlyn Hercules at the [facility] foot [facility] ankle Type of specialist: Podiatry Location of specialist: [address] [place] [address] [place] [address] Specialist's Phone #: [phone] Specialist's Fax #: [phone] Reason for visit: Foot care toe nails cut. Date of visit: 08/18/2023 @ 9:00 AM documented in this encounter Plan of Treatment Upcoming Encounters Date Type Department Care Team (Late st Contact Info) Description 10/24/2023 8:00 AM EDT Office Visit Family Practice [facility] [address] [facility] [place] [address] Savana Ogden PA-C [address] [facility] [place] [address] Scheduled Procedures Name Priority Associated Diagnoses Date/Ti me COLONOSCOPY FLEXIBLE PROXIMA L DIAGNOSTIC Recall History of colonic polyps Scheduled Referrals Name Type Priority Associated Diagnoses Orde r Schedule PODIATRY REFERRAL OP Referral Within 10 days (routine) Type 2 diabetes mellitus with diabetic peripheral angiopathy without gangrene, with long-term current use of insulin (HCC) Ordered: 08/17/2023 Health Maintenance Due Date Last Done Comments Hepatitis B (1 of 3 - Risk 3-dose series) 1998 Zoster Vaccines (3 of 3) 04/01/2022 02/04/2022, 02/16 COVID-19 Vaccine ( season) 2023 04/27/2022, 09/30/2020, 09/09/2020 Depression Screening 07/20/2023 07/20/2022, 10/22/2015 (Discussed) Diabetic Eye Exam 07/20/2023 07/20/2022, , 07/20/2021, Additional history exists Diabetic Foot Exam 07/20/2023 07/20/2022, 1 08/09/2020, 04/29/2020, Additional history exists HbA1c 10/21/2023 04/21/2023, 10/17, 05/21/2022, Additional history exists Albumin/Creatinine Ratio 04/21/2024 023, 11/12/2022, 11/30/2021, Additional history exists CKD HGB USE SMARTSET 91756 04/21/202404/21, 02/04/2022, 02/04/2022, Additional history exists CKD PHOS USE SMARTSET 45540 04/21/2024 10/0 11/2022, 11/12/2022, 11/30/2021, Additional history exists DTaP,Tdap,and Td Vaccines (2 - Td or Tdap) 06/26/2024 06/26/2014, 02/03/2004 COLONOSCOPY-EVERY 5 YRS AGES 18-100 03/30/2027 03/30/2022, [...] Diagnosis Type 2 diabetes mellitus with diabetic peripheral angiopathy without gangrene, with long-term current use of insulin (HCC)- Primary documented in this encounter Advance Directives Latest Code Status on File Code Status Date Activated Date Inactivated Comments Full Code 05/08/2008 10:46 AM 05/08/2008 5:20 PM Code Status History Code Status Date Activated Date Inactivated Comments Full Code 05/08/2008 7:41 AM 05/08/2008 10:46 AM Care Teams City Distribution Clerk Relationship Specialty Start Date End Date Nikky Hayes DO [address] [place] [address] PCP - General Family Medicine 01/27/16 documented as of this encounter
--- OUTSIDE RECORDS SUMMARY | 2024-02-14 02:46 | External Medical Summary | Summary of Care ---
Author Name Unknown Organization [facility] Address [address] [place] [address] Phone [phone] Care Team Providers Care Bean Sprout Grower Name Role Phone Nikky Hayes DO Primary Care Provider Reason for Visit * Reason Comments Acute Encounter Details Date Type Department Care Team (Late st Contact Info) Description 09/12/2023 8:20 AM EST Office Visit Family Practice [facility] [address] [facility] [place] [address] Honey Reyes III, MD [address] [facility] [place] [address] Type 2 diabetes mellitus with hemoglobin A1c goal of less than 8.0% ([facility])*; Elevated blood pressure reading Allergies Active Allergy Reactions Criticality Noted Date Comments Bactrim 11/29/2012 Rash Dust 03/27/2002 Sitagliptin 11/29/2016 Abdominal pain Empagliflozin 03/01/2019 rash Mold 01/01/2003 Humble 03/27/2002 Pollen 03/27/2002 Ranitidine Rash High 11/18/2018 [...] below 7,DM type 2 nursing care encounter ([facility]) check blood sugar one time daily. DX: 250.00 1 Box 6 10/11/2012 Active cetirizine (ZYRTEC) 10 MG Tablet Take 1 Tablet by mouth in the morning. 0 Active Glucose Blood (ONETOUCH ULTRA BLUE) STRPIndications:DM type 2 nursing care encounter ([facility]) Use one time daily for [...] area. 60 g 5 04/12/2023 Active Pen Wray 32G X 4 MM Use as directed. [...] days. 22 g 1 09/01/2023 4 Active Zoster Vac Recomb Adjuvanted [...] mRNA, LNP-s, No Pre serve, 2-Dose Series ([employer]) 09/30/2020,09/09/2020 Covid-19, Mrna, Lnp-s, Pf, B ivalent, [...] Sign Reading Time Taken Comments Blood Pressure 160/90 09/12/2023 8:17 AM EST Pulse 75 09/12/2023 8:17 AM EST Temperature 35.8 C (96.4 F) 09/12/2023 8:17 AM ES T Respiratory Rate 16 09/12/2023 8:17 AM EST Oxygen Saturation 98% 09/12/2023 8:17 AM EST Inhaled Oxygen Concentration - - Weight 74.6 kg (164 lb 6.4 oz) 09/12/2023 8:17 A M EST Height - - Body Mass Index 25.75 04/21/2023 8:07 AM EDT documented in this encounter Progress Notes * Honey Reyes III, MD - 09/12/2023 8:45 AM EST Subjective: Abigail Shaw is a 83 year old female. 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 History of nonmelanoma skin cancer Z85.828 Type 2 diabetes mellitus with diabetic peripheral angiopathy without gangrene (HCC) E11.51 Gastroesophageal reflux disease without esophagitis K21.9 Hypertensive kidney disease with stage 3a chronic kidney disease I12.9, N18.31 Chronic kidney disease, stage 3a (HCC) N18.31 Type 2 diabetes mellitus with stage 3a chronic kidney disease (HCC) E11.22, N18.31 PAT (paroxysmal atrial tachycardia) I47.19 Current Outpatient Medications Medication Sig Dispense Refill OMEGA-3 1000 MG PO CAPS daily 0 MULTIVITAMINS PO TABS None Entered CALCIUM + D 600-200 MG-UNIT PO TABS None Entered ASPIRIN 81 MG PO TABS 1 daily PROBIOTIC PRODUCT PO TABS 1 tablet daily ONETOUCH MAGDALENO LANCETS FINE MISC check blood sugar one time daily. DX: 250.00 1 Box 6 cetirizine (ZYRTEC) 10 MG Tablet Take 1 Tablet by mouth in the morning. Glucose Blood (ONETOUCH ULTRA BLUE) STRP Use one time daily for fluctuating blood sugars E11.22 100Strip 3 clotrimazole (LOTRIMIN) 1 % cream Apply topically to affected area 2 times a day. To affacted area for two weeks. 14 g 1 Cinnamon 500 MG Oral Tablet Take 1 Tablet by mouth in the morning. Metoprolol Tartrate 25 MG Oral Tablet (Lopressor) Take 1 Tablet by mouth in the morning. With 100mgfor a total of 125mg daily. 90 Tablet 3 Omeprazole 20 MG Oral Capsule Delayed Release (PriLOSEC) TAKE ONE CAPSULE BY MOUTH DAILY , MAY INCREASE TO 2 CAPSULES PER DAY 180 Capsule 2 Triamcinolone Acetonide 0.1 % External Cream (Aristocort) Apply topically to affected area 2 times a day. To affected area. 60 g 5 Pen Wray 32G X 4 MM Use as directed. Once daily with insulin 100 Each 3 Rosuvastatin Calcium 20 MG Oral Tablet (Crestor) TAKE 1 TABLET BY MOUTH IN THE MORNING. 90 Tablet 0 Toujeo SoloStar 300 UNIT/ML Subcutaneous Solution Pen-injector (Insulin Glargine (1 Unit Dial)) Inject 26 Units under the skin at bedtime. 4.5 mL 11 Mupirocin 2 % External Ointment (Bactroban) Apply topically to affected area 3 times a day for up to 14 days. 22 g 1 Zoster Vac Recomb Adjuvanted 50 MCG/0.5ML Intramuscular Suspension Reconstituted (Shingrix) Inject 0.5 mL into a large muscle now and repeat dose in 60 to 180 days 1 Each 1 No current facility-administered medications for this visit. Review of patient's allergies indicates: Allergen Reactions Ranitidine Rash Bactrim Rash Dust Januvia [Sitagliptin] Abdominal pain Jardiance [Empagliflozin] rash Mold Humble Pollen Zocor [Simvastatin] Body aches and nausea Past Medical History: Diagnosis Date Allergic rhinitis Benign neoplasm of colon 04/21/07 colonoscopy Benign neoplasm of colon 10/15/2011 colonoscopy Diffuse cystic mastopathy DM type 2, goal A1c below 7 Encounter for ophthalmic examination and evaluation 10/21/09 Tra Guzman, OD no retinopathy Gastroesophageal reflux disease without esophagitis 01/08/2020 History of cholecystectomy 2007 HTN, goal to be determined Menopause Mixed dyslipidemia Other cataract PPD positive 04/21/2007 Rosacea Past Surgical History: Procedure Laterality Date BREAST LESION,OTHER,EXCISION Left Benign COLONOSCOPY W/ BIOPSY (RECTUM) 04/21/2007 hyperplastic polyps--repeat 3-5 years COLONOSCOPY W/ BIOPSY (RECTUM) 10/15/2011 hyperplastic polyp repeat in 5 years COLONOSCOPY, DIAGNOSTIC (RECTUM) 10/25/2016 adenomatous & hyperplastic polyps, repeat 5 yrs/COLONOSCOPY FLEXIBLE PROXIMAL DIAGNOSTIC performed by Corina Cruz DO at [facility] COLONOSCOPY, DIAGNOSTIC (RECTUM) 03/30/2022 benign adenomatous polyps, repeat 5 yrs / COLONOSCOPY FLEXIBLE PROXIMAL DIAGNOSTIC performed by Jackie Renteria MD at [facility] CT HEAD/BRAIN WO CONTRAST 09/02/2005 normal FLEX SIG, GI REFERRAL OP 03/13/2003 wnl 70 cm LAPAROSCOPY; CHOLECYSTECTOMY 05/08/2008 LAPAROSCOPIC CHOLECYSTECTOMY performed by HONEY HOWARD at [facility] LIGATE/CUT OVIDUCT(S) Tubal Ligation MAMMOGRAM - BILATERAL 04/11/2002 Birad code 2 MAMMOGRAM - BILATERAL 04/15/2003 birad code 2 MAMMOGRAM - BILATERAL 04/29/2004 birad code 2 MAMMOGRAM - BILATERAL 04/30/2005 birad code 2 MAMMOGRAM - BILATERAL 05/03/2006 birad code 2/benign findings MAMMOGRAM SCREENING-BILATERAL 05/04/2007 birad 2 OTHER 04/27/2005 Excision of skin lesion left elbow Dr. Gonzalez REMOVAL OF TONSILS, UNDER AGE 12 Tonsils Removal,<12 Y/O VAGINAL DELIVERY ONLY Vaginal Delivery Objective: The patient is a 83 year old female BP 160/90 | Pulse 75 | Temp 35.8 C (96.4 F) (Tympanic) | Resp 16 | Wt 74.6 kg (164 lb 6.4 oz) |SpO2 98% | BMI 25.75 kg/m | BSA 1.88 m General: alert, healthy, and no distress Eye Exam: PERRLA, extraocular movements intact, conjunctiva are pink and non- injected, sclera clear Oropharynx: no exudate, no erythema, lips, buccal mucosa, and tongue normal, and mucous membranes are moist Heart: regular rate & rhythm, no murmur, and no gallops Lungs: lungs clear to auscultation Extremities: no edema, no clubbing, no cyanosis ASSESSMENT: E11.9 Type 2 diabetes mellitus with hemoglobin A1c goal of less than 8.0% (HCC) (primary encounter diagnosis) R03.0 Elevated blood pressure reading PLAN: Dash diet given check A1c basic metabolic panel discuss a blood pressure remains elevated would need to add antihypertensive needs 2nd Shingrix injection order sent to pharmacy Follow up as scheduled October 23 appointment. Honey Reyes III, MD documented in this encounter Nursing Notes * Danita Law LPN - 09/12/2023 8:18 AM EST Patient ran out of insulin yesterday and just wanted to be checked out. I explained that she has refills available at pharmacy documented in this encounter Plan of Treatment Upcoming Encounters Date Type Department Care Team (Late st Contact Info) Description 10/24/2023 8:00 AM EDT Office Visit Family Practice [facility] [address] [facility] [place] [address] [address] [place] [address] [facility] [place] [address] Scheduled Orders Name Type Priority Associated Diagnoses Orde r Schedule BASIC METABOLIC PANEL Lab Routine Type 2 diabetes mellitus with hemoglobin A1c goal of less than 8.0% (HCC) Expected: 09/12/2023 (Approximate), Expires: 09/11/2024 HEMOGLOBIN A1C Lab Routine Type 2 diabetes mellitus with hemoglobin A1c goal of less than 8.0% (HCC) Expected: 09/12/2023 (Approximate), Expires: 09/11/2024 Scheduled Procedures Name Priority Associated Diagnoses Date/Ti [...] Additional history exists CKD HGB USE SMARTSET 40026 04/21/202404/21, 02/04/2022, 02/04/2022, Additional history exists CKD PHOS USE SMARTSET 38592 04/21/2024 10/0 11/2022, 11/12/2022, 11/30/2021, Additional history [...] hemoglobin A1c goal of less than 8.0% ([facility])- Primary Elevated blood pressure reading Elevated blood pressure reading without diagnosis of hypertension documented in this encounter Advance Directives Latest Code Status on File Code Status Date Activated Date Inactivated Comments Full Code 05/08/2008 10:46 AM 05/08/2008 5:20 PM Code Status History Code Status Date Activated Date Inactivated Comments Full Code 05/08/2008 7:41 AM 05/08/2008 10:46 AM Care Teams Bean Sprout Grower Relationship Specialty Start Date End Date Nikky Hayes DO [facility] [place] [address] PCP - General Family Medicine 01/27/16 documented as of this encounter"
--- OUTSIDE RECORDS SUMMARY | 2024-02-14 02:46 | External Medical Summary | Summary of Care ---
Author Name Unknown Organization [facility] [address] [facility] [address] Phone [phone] Care Team Providers Care Team Supervisor Name Role Phone Nikky Hayes DO Primary Care Provider Reason for Visit * Reason Comments Well Adult Exam Encounter Details Date Type Department Care Team (Late st Contact Info) Description 09/01/2023 9:40 AM EST Office Visit Family [facility] [place] [address] [place] [address] Savana Ogden PA-C [address] [facility] [place] [id number] DM type 2 nursing care encounter (HCC)*; Type 2 diabetes mellitus with stage 3a chronic kidney disease, without long-term current use of insulin (HCC); Hypertensive kidney disease with stage 3a chronic kidney disease; HTN, goal below 140/90; Finger lesion Allergies Active Allergy Reactions Criticality Noted Date Comments Bactrim 11/29/2012 Rash Dust 03/27/2002 Sitagliptin 11/29/2016 Abdominal pain Empagliflozin 03/01/2019 rash Mold 01/01/2003 Foard 03/27/2002 Pollen 03/27/2002 Ranitidine Rash High 11/18/2018 Simvastatin 02/04/2006 Body aches and nausea documented as of this encounter (statuses as of 09/01/2023) Medications Medication Sig Dispensed Refills Start Date [...] area. 60 g 5 04/12/2023 Active Pen Bunnlevel 32G X 4 MM Use as directed. [...] as of this encounter (statuses as of 09/01/2023) Active Problems Problem Noted Date Diagnosed Date [...] as of this encounter (statuses as of 09/01/2023) Resolved Problems Problem Noted Date Diagnosed Date [...] 03/18/2017 History of cholecystectomy 0 11/27/2015 Overview: 2007 documented as of this encounter (statuses as of 09/01/2023) Immunizations Name Administration Dates Next Due COVID-19 [...] Sign Reading Time Taken Comments Blood Pressure 130/76 09/01/2023 9:40 AM EST Pulse 85 09/01/2023 9:40 AM EST Temperature 35.6 C (96 F) 09/01/2023 9:40 AM EST Respiratory Rate 16 09/01/2023 9:40 AM EST Oxygen Saturation 99% 09/01/2023 9:40 AM EST Inhaled Oxygen Concentration - - Weight 73.1 kg (161 lb 1.9 oz) 09/01/2023 9:40 A M EST Height - - Body Mass Index 25.23 04/21/2023 8:07 AM EDT documented in this encounter Patient Instructions * Patient Instructions* Danita Law LPN - 09/01/2023 9:43 AM EST Images from the original note were not included. Diabetes: Keeping Feet Healthy Inspect your feet every day for signs of a problem. Diabetes can damage nerves in your feet and cause neuropathy. This condition makes it hard for you to feel injuries or sore spots. Diabetes can also change blood flow, making it harder for small problems, like a blister, to heal properly. In fact, minor injuries can quickly become serious infections that send you to the hospital. Practice self-care to protect your feet and keep them healthy. Take Special Care Inspect your feet daily for problems such as redness, blisters, cracks, dry skin, or numbness. Use a mirror to see the bottoms of your feet. Or, ask for help. Manage your diabetes. Monitor and control your blood sugar. Take all your medications as prescribed. Avoid walking barefoot, even indoors. Wash your feet with warm water and mild soap. Dry well, especially between toes. Dont treat corns or calluses yourself. Talk to your doctor or gi technician (a doctor who specializes in foot care) if you need assistance trimming your toenails. Use moisturizing cream or lotion if you have dry skin, but dont use it between toes. Dont use heating pads on your feet. If you have neuropathy, you could get a burn and not feel it. Stop smoking. Smoking restricts blood flow and can make it harder for wounds to heal. Have Regular Checkups Foot problems can develop quickly. So be sure to follow your healthcare teams schedule for regular checkups. During office visits, take off your shoes and socks as soon as you get in the exam room. Ask your healthcare provider to examine your feet for problems. This will make it easier to find and treat small skin irritations before they get worse. Regular checkups can also help keep track of the blood flow and feeling in your feet. If you have neuropathy, you may need to have checkups more often. Wear Proper Footwear Wearing proper footwear is very important. If areas of your feet have been damaged by too much pressure, your healthcare provider may recommend changing your footwear. In some cases, avoiding high heels or tight work boots may be all thats needed. Or, your healthcare provider may recommend special shoes or custom inserts. These help protect your feet and keep existing irritations from getting worse. If you need special footwear, ask your healthcare provider if you qualify for [employer] diabetic shoe program. Make Sure Shoes and Socks Fit Any pair of shoes--new or old--should feel comfortable as soon as you put them on. There shouldnt be any rubbing when you walk. Wear the right shoe for any activity. For instance, a running shoe is designed to keep your feet injury-free while jogging. Buy shoes at the end of the day, when your feet are larger. Make sure they provide support without feeling too loose. Make sure your socks fit, t oo. Wear soft, seamless, well-padded socks for activity. Cotton or microfiber socks are best to help to absorb sweat. To protect your feet, avoid shoes that are open-toed or open-heeled. If you have questions about what kinds of shoes and socks are best, talk to your healthcare team. Get Regular Exercise Regular exercise improves blood flow in your feet. It also increases foot strength and flexibility.Gentle exercises, like walking or riding a stationary bicycle, are best. You can also do special foot exercises. Just be sure to talk with your healthcare provider before starting any exercise program. Also mention if any exercise causes pain, redness, or other signs of foot problems. Note: If you have any kind of break in the skin of your foot or ankle, keep the area clean. Then call your doctor--especially if the area doesnt appear to be healing. [id number] [employer], [address] [place] [address], [place] [id number]. All rights reserved. This information is not intended as a substitute for professional medical care. Always follow your healthcare professional's instructions. Diabetic Retinopathy: Evaluating Your Eyes Diabetic retinopathy is a condition that happens when diabetes damages blood vessels in the rear ofthe eye. It can lead to vision loss. To help catch it early, have a complete dilated eye exam at least once a year. During the exam, the eye healthcare provider will review your medical history, examine your eyes, and check your vision. Women who are and have pre-existing type 1 or type 2 diabetes have an increased risk of retinopathy. Women with diabetes should have an eye exam before or in the first trimester. They should continue to be monitored every trimester and for 1 year after delivery, depending on the severity of the retinopathy. The retina is the light-sensitive part of the eye that allows you to see. High blood sugar can damage blood vessels of the retina and cause them to leak or bleed. This damage can lead to abnormal blood vessel growth. This condition is called diabetic retinopathy. You may not have symptoms early in the disease. Later, there may be floaters, blurred vision, or poor night vision. There may also be partial or complete vision loss. Early cases of diabetic retinopathy can be treated by carefully controlling blood sugar, blood pressure, and cholesterol. Surgery or laser treatments may help restore lost vision. Laser surgery can shrink abnormal blood vessels or close ones that are leaking. Medicines injected in the eye can help decrease swelling of the retina. Home care Take all medicines, including insulin or oral diabetic medicine, exactly as prescribed. Follow the diet advised by your healthcare provider. If you have high cholesterol, follow a low-fat, low-cholesterol diet. Monitor blood sugars as advised. Try to achieve your ideal weight. If you smoke, quit smoking. Tobacco use worsens the effect of diabetes on your blood vessels. If you have high blood pressure, consider buying an automatic blood pressure machine. These are available at most pharmacies. Use this to monitor your blood pressure. Report your blood pressure readings to your healthcare provider. Exercise regularly. Follow-up care Follow up with your healthcare provider, or as advised. You must have a complete eye exam at least once a year, more often if needed. Untreated diabetic retinopathy can lead to complete loss of vision. Occupational therapists can help you adapt to any vision loss you have, including learning techniques to safely administer insulin. When to seek medical advice Call your healthcare provider right away if any of these occur. Increasing blurriness or any sudden changes in your vision Sudden flashes of light inside your eye New floaters (small dots or strings that seem to be moving across your field of vision) Eye pain, redness, or discharge from your eyelid New dark spots appearing in your field of vision Halos around lights Dimness of vision Partial or complete loss of vision Women with diabetes should have a complete eye exam before becoming , or as soon as possible when they find out they are . Retinopathy sometimes worsens during . Your eye exam Your eye healthcare provider uses an eye chart and other tools to check your vision. Then he or sheexamines your eyes for signs of disease. You are given eye drops to widen (dilate) your pupils. Youmay have one or more of the following tests: Tonometry to measure fluid pressure inside the eye. Slit lamp exam to allow the healthcare provider to view the structures of your eye. Ultrasound to create an image of the eye using sound waves. Ultrasound may be used if blood is found in the clear gel that fills the eye (vitreous). Ocular coherence tomography (OCT) to create an image of the retina using light waves. This shows ifthere is fluid leaking into certain parts of the eye. It can also measure the thickness of the retina. Fluorescein angiography This test may be done to check the health of the inside lining of the eye (retina). It also checks the tiny blood vessels (capillaries) that carry blood to the retina. During the test: Photographs are taken of the retina. A dye is then injected into the bloodstream through the arm or hand. The dye travels to the capillaries in the eye. More photographs are taken of the retina. The dye causes the capillaries to stand out on the photographs. You may feel brief nausea during the procedure. For a few hours after the test, your skin, eyes, and urine may appear yellow. Talk with your healthcare provider for more information about this test. Date Last Reviewed: 12/17/201519997695-7172 [employer]. [address] [place] [address], [place] [address]. All rights reserved. This information is not intended as a substitute for professional medical care. Always follow your healthcare professional's instructions. documented in this encounter Progress Notes * Savana Ogden PA-C - 09/01/2023 9:54 AM EST Images from the original note were not included. History of Present Illness Abigail Shaw is a 83 year old female that presents for Well Adult Exam Patient is a 83 year old female who presents for a follow up on diabetes and hypertension. States she is feeling well. Denies chest pain, sob, palpitations, edema, headaches, dizzy Appetite good Sleep good Urination/ bowel movements good Left 3rd finger open area, has been present for over a month. No drainage. Reviewing chart same finger was an issue back in November of last year. Physical Exam Vitals: 09/01/23 0940 Temp: 35.6 C (96 F) Pulse: 85 Resp: 16 SpO2: 99% BP: 130/76 BP Readings from Last 3 Encounters: 09/01/23 130/76 05/24/23 136/64 04/21/23 130/62 Wt Readings from Last 3 Encounters: 09/01/23 73.1 kg (161 lb 1.9 oz) 05/24/23 73 kg (161 lb 0.6 oz) 04/21/23 73.9 kg (163 lb) General: alert, healthy, no distress, well nourished, [...] less than 2 second capillary refill, no edema, no clubbing, no cyanosis, Full ROM, Pulses Intact, Strength equal bilaterally, arthritic joints noted in fingers of both hands, Skin: skin color, texture, turgor are normal, open, non healed lesion left middle finger, tissues is calloused. I have reviewed the following results: Hemoglobin A1C Assessment and Plan DM type 2 nursing care encounter (HCC) (Primary) - DIABETES FOOT EXAM Type 2 diabetes mellitus with stage 3a chronic kidney disease, without long-term current use of insulin (HCC) - DIABETIC EYE EXAM - HEMOGLOBIN A1C; Future; Expected date: 09/30/2023 Hypertensive kidney disease with stage 3a chronic kidney disease HTN, goal below 140/90 Finger lesion - XR FINGERS 2 OR MORE VIEWS; Future; Expected date: 09/01/2023 - Mupirocin 2 % External Ointment (Bactroban); Apply topically to affected area 3 times a day for up to 14 days. - Doxycycline Hyclate 100 MG Oral Capsule; Take 1 Capsule by mouth in the morning and 1 Capsule before bedtime. Do all this for 7 days. Wrap-Up Time: I spent a total of 30-39 minutes (exact time 35 mins) on the date of service in preparation, delivery, and documentation of the care provided to Abigail Shaw excluding any time spent in the performance of separately billed services. * Danita Law LPN - 09/01/2023 9:43 AM EST Images from the original note were not included. DM Foot Exam completed today. Provider aware. Danita Law LPN Socks and Shoes Removed for Annual Diabetic Foot Screening RIGHT FOOT: No Reddened, Cracking, Or Open Areas Noted. RIGHT Dorsalis Pedis Pulse: Palpable RIGHT Posterior Tibial Pulse: Palpable RIGHT Monofilament:Patient reports feeling monofilament pressure on plantar surface of foot LEFT FOOT: No Reddened, Cracking or Open Areas Noted. LEFT Dorsalis Pedis Pulse: Palpable LEFT Posterior Tibial Pulse: Palpable LEFT Monofilament:Patient reports feeling monofilament pressure on plantar surface of foot Do you need diabetic shoes: No The importance of having a yearly diabetic eye exam has been discussed with patient. Order and/or Referral placed along with patient instructions. Provider made aware. Danita Law LPN The importance of having a yearly diabetic eye exam has been discussed with patient. Order and/or Referral placed along with patient instructions. Provider made aware. Danita Law LPN Diabetic Retinopathy: Evaluating Your Eyes Diabetic retinopathy is a condition that happens when diabetes damages blood vessels in the rear ofthe eye. It can lead to vision loss. To help catch it early, have a complete dilated eye exam at least once a year. During the exam, the eye healthcare provider will review your medical history, examine your eyes, and check your vision. Women who are and have pre-existing type 1 or type 2 diabetes have an increased risk of retinopathy. Women with diabetes should have an eye exam before or in the first trimester. They should continue to be monitored every trimester and for 1 year after delivery, depending on the severity of the retinopathy. The retina is the light-sensitive part of the eye that allows you to see. High blood sugar can damage blood vessels of the retina and cause them to leak or bleed. This damage can lead to abnormal blood vessel growth. This condition is called diabetic retinopathy. You may not have symptoms early in the disease. Later, there may be floaters, blurred vision, or poor night vision. There may also be partial or complete vision loss. Early cases of diabetic retinopathy can be treated by carefully controlling blood sugar, blood pressure, and cholesterol. Surgery or laser treatments may help restore lost vision. Laser surgery can shrink abnormal blood vessels or close ones that are leaking. Medicines injected in the eye can help decrease swelling of the retina. Home care Take all medicines, including insulin or oral diabetic medicine, exactly as prescribed. Follow the diet advised by your healthcare provider. If you have high cholesterol, follow a low-fat, low-cholesterol diet. Monitor blood sugars as advised. Try to achieve your ideal weight. If you smoke, quit smoking. Tobacco use worsens the effect of diabetes on your blood vessels. If you have high blood pressure, consider buying an automatic blood pressure machine. These are available at most pharmacies. Use this to monitor your blood pressure. Report your blood pressure readings to your healthcare provider. Exercise regularly. Follow-up care Follow up with your healthcare provider, or as advised. You must have a complete eye exam at least once a year, more often if needed. Untreated diabetic retinopathy can lead to complete loss of vision. Occupational therapists can help you adapt to any vision loss you have, including learning techniques to safely administer insulin. When to seek medical advice Call your healthcare provider right away if any of these occur. Increasing blurriness or any sudden changes in your vision Sudden flashes of light inside your eye New floaters (small dots or strings that seem to be moving across your field of vision) Eye pain, redness, or discharge from your eyelid New dark spots appearing in your field of vision Halos around lights Dimness of vision Partial or complete loss of vision Women with diabetes should have a complete eye exam before becoming , or as soon as possible when they find out they are . Retinopathy sometimes worsens during . Your eye exam Your eye healthcare provider uses an eye chart and other tools to check your vision. Then he or sheexamines your eyes for signs of disease. You are given eye drops to widen (dilate) your pupils. Youmay have one or more of the following tests: Tonometry to measure fluid pressure inside the eye. Slit lamp exam to allow the healthcare provider to view the structures of your eye. Ultrasound to create an image of the eye using sound waves. Ultrasound may be used if blood is found in the clear gel that fills the eye (vitreous). Ocular coherence tomography (OCT) to create an image of the retina using light waves. This shows ifthere is fluid leaking into certain parts of the eye. It can also measure the thickness of the retina. Fluorescein angiography This test may be done to check the health of the inside lining of the eye (retina). It also checks the tiny blood vessels (capillaries) that carry blood to the retina. During the test: Photographs are taken of the retina. A dye is then injected into the bloodstream through the arm or hand. The dye travels to the capillaries in the eye. More photographs are taken of the retina. The dye causes the capillaries to stand out on the photographs. You may feel brief nausea during the procedure. For a few hours after the test, your skin, eyes, and urine may appear yellow. Talk with your healthcare provider for more information about this test. Date Last Reviewed: 12/17/201519994536-1871 [employer]. [address] [place] [address], [place] [address]. All rights reserved. This information is not intended as a substitute for professional medical care. Always follow your healthcare professional's instructions. documented in this encounter Nursing Notes * Danita Law LPN - 09/01/2023 9:35 AM EST Abigail Shaw presents for annual wellness exam. Medications & HM reviewed. Denies any concerns at this time documented in this encounter Plan of Treatment Upcoming Encounters Date Type Department Care Team (Late st Contact Info) Description 10/24/2023 8:00 AM EDT Office Visit [facility] [place] [address] [place] [address] Savana Ogden PA-C [address] [place] [address] Pending Results Name Type Priority Associated Diagnoses Date /Time XR FINGERS 2 OR MORE VIEWS Medical Imaging Routine Finger lesion 09/01/2023 10:24 AM EST Scheduled Orders Name Type Priority Associated Diagnoses Orde r Schedule HEMOGLOBIN A1C Lab Routine Type 2 diabetes mellitus with stage 3a chronic kidney disease, without long-term current use of insulin (HCC) Expected: 09/30/2023 (Approximate), Expires: 08/31/2024 XR FINGERS 2 OR MORE VIEWS Medical Imaging Routine Finger lesion Expected: 09/01/2023, Expires: 09/29/2024 Scheduled Procedures Name Priority Associated Diagnoses Date/Ti me COLONOSCOPY FLEXIBLE PROXIMA L DIAGNOSTIC Recall History of colonic polyps Health Maintenance Due Date Last Done Comments Hepatitis B (1 of 3 - Risk 3-dose series) 1998 Zoster Vaccines (3 of 3) 04/01/2022 02/04/2022, 02/16 COVID-19 Vaccine (4 - 2022- season) 2023 04/27/2022, 09/30/2020, 09/09/2020 Depression Screening 07/20/2023 07/20/2022, 10/22/2015 (Discussed) HbA1c 10/21/2023 04/21/2023, 10/17, 05/21/2022, Additional history exists Albumin/Creatinine Ratio 04/21/2024 023, 11/12/2022, 11/30/2021, Additional history exists CKD HGB USE SMARTSET [id number] 04/21/202404/21, 02/04/2022, 02/04/2022, Additional history exists CKD PHOS USE SMARTSET [id number] 04/21/2024 10/11/2022, 11/12/2022, 11/30/2021, Additional history exists DTaP,Tdap,and Td [...] Not on filedocumented as of this encounter Procedures Procedure Name Priority Date/Time Associated Diagnosis Comments TELEMEDICINE DIABETIC EYE Routine 09/01/2023 DM type 2 nursing care encounter (HCC) documented in this encounter Results * TELEMEDICINE DIABETIC EYE (09/01/2023) 09/01/2023 Savana Hein Ogden PA-C DIGITAL PHOTOGRAPHY documented in this encounter Visit Diagnoses Diagnosis DM type 2 nursing care encounter (HCC)- Primary Type II or unspecified type diabetes mellitus without mention of complication, not stated as uncontrolled Type 2 diabetes mellitus with stage 3a chronic kidney disease, without long-term current use of insulin (HCC) Hypertensive kidney disease with stage 3a chronic kidney disease HTN, goal below 140/90 Unspecified essential hypertension Finger lesion Unspecified disorder of skin and subcutaneous tissue documented in this encounter Advance Directives Latest Code Status on File Code Status Date Activated Date Inactivated Comments Full Code 05/08/2008 10:46 AM 05/08/2008 5:20 PM Code Status History Code Status Date Activated Date Inactivated Comments Full Code 05/08/2008 7:41 AM 05/08/2008 10:46 AM Care Teams Team Supervisor Relationship Specialty Start Date End Date Nikky Hayes DO [address] [place] [address] PCP - General Family Medicine 01/27/16 documented as of this encounter
--- OUTSIDE RECORDS SUMMARY | 2024-02-14 02:46 | External Medical Summary | Summary of Care ---
Author Name Unknown Organization [facility] Address [address] [place] [address] Phone [phone] Care Team Providers Care Home Care Administrator Name Role Phone Nikky Hayes DO Primary Care Provider Reason for Visit * Reason Onset Date Comments Test Results Lab 09/07/2023 Encounter Details Date Type Department Care Team (Late st Contact Info) Description 09/07/2023 Telephone Family Practice [facility] [address] [facility] [place] [address] Nikky Hayes DO 200 [facility] [place] [address] Test Results Lab Allergies Active Allergy Reactions Criticality Noted Date Comments Bactrim 11/29/2012 Rash Dust 03/27/2002 Sitagliptin 11/29/2016 Abdominal pain Empagliflozin 03/01/2019 rash Mold 01/01/2003 [place] 03/27/2002 Pollen 03/27/2002 Ranitidine Rash High 11/18/2018 Simvastatin 02/04/2006 Body aches and nausea documented as of this encounter (statuses as of 09/07/2023) Medications Medication Sig Dispensed Refills Start Date [...] BLUE) STRPIndications:DM type 2 nursing care encounter ([facility]) Use one time daily for fluctuating blood [...] area. 60 g 5 04/12/2023 Active Pen Nebo 32G X 4 MM Use as directed. [...] as of this encounter (statuses as of 09/07/2023) Active Problems Problem Noted Date Diagnosed Date [...] as of this encounter (statuses as of 09/07/2023) Resolved Problems Problem Noted Date Diagnosed Date [...] as of this encounter (statuses as of 09/07/2023) Immunizations Name Administration Dates Next Due COVID-19 mRNA, LNP-s, No Pre serve, 2-Dose Series (Shoutlet) 09/30/2020,09/09/2020 Covid-19, Mrna, Lnp-s, Pf, B ivalent, [...] encounter Miscellaneous Notes * Telephone Encounter - Yajaira Andrews MED ASSIST - 09/07/2023 9:09 AM EST Spoke to pt on the phone. She is aware of her results and has no further question. * Telephone Encounter - Yajaira Andrews MED ASSIST - 09/07/2023 9:07 AM EST ----- Message from Savana Ogden PA-C sent at 09/06/2023 8:21 AM EST ----- Please send a lab letter stating xray results normal. documented in this encounter Plan of Treatment Upcoming Encounters Date Type Department Care Team (Late st Contact Info) Description 10/24/2023 8:00 AM EDT Office Visit Family Practice [facility] [address] [facility] [place] [address] Savana Ogden PA-C [address] [facility] [place] [address] Scheduled Procedures Name Priority Associated Diagnoses Date/Ti [...] Additional history exists CKD HGB USE SMARTSET 39068 04/21/202404/21, 02/04/2022, 02/04/2022, Additional history exists CKD PHOS USE SMARTSET 18569 04/21/2024 10/0 11/2022, 11/12/2022, 11/30/2021, Additional history [...] 7:41 AM 05/08/2008 10:46 AM Care Teams Home Care Administrator Relationship Specialty Start Date End Date Nikky Hayes DO [address] [place] [address] PCP - General Family Medicine 01/27/16 documented as of this encounter
--- OUTSIDE RECORDS SUMMARY | 2024-02-14 02:46 | External Medical Summary | Summary of Care ---
Author Name Unknown Organization [facility] Address [address] [facility] [place] [address] Phone [phone] Care Team Providers Care Flat Sheet Maker Name Role Phone Nikky Hayes DO Primary Care Provider Reason for Visit * Reason Onset Date Comments Advice 08/31/2023 Encounter Details Date Type Department Care Team (Late st Contact Info) Description 08/31/2023 Telephone Family Practice [facility] [place] [address] [facility] [place] [address] Savana Ogden PA-C 200 [facility] [place] [address] Advice Allergies Active Allergy Reactions Criticality Noted Date Comments Bactrim 11/29/2012 Rash Dust 03/27/2002 Sitagliptin 11/29/2016 Abdominal pain Empagliflozin 03/01/2019 rash Mold 01/01/2003 [place] 03/27/2002 Pollen 03/27/2002 Ranitidine Rash High 11/18/2018 Simvastatin 02/04/2006 Body aches and nausea documented as of this encounter (statuses as of 08/31/2023) Medications Medication Sig Dispensed Refills Start Date [...] area. 60 g 5 04/12/2023 Active Pen [place] 32G X 4 MM Use as directed. Once daily with insulin 100 Each 3 05/27/2023 Active Rosuvastatin Calcium 20 MG Oral Tablet (Crestor)Indicatio ns:Dyslipidemia, goal LDL below 100 TAKE 1 TABLET BY MOUTH IN THE MORNING. 90 Tablet 0 06/03/2023 06/02/2024 Active Touangie SoloStar 300 UNIT/ML Subcutaneous Solution Pen-injector (Insulin Glargine (1 Unit Dial)) Inject 26 Units under the skin at bedtime. 4.5 mL 11 08/04/2023 Active documented as of this encounter (statuses as of 08/31/2023) Active Problems Problem Noted Date Diagnosed Date [...] as of this encounter (statuses as of 08/31/2023) Resolved Problems Problem Noted Date Diagnosed Date [...] as of this encounter (statuses as of 08/31/2023) Immunizations Name Administration Dates Next Due COVID-19 mRNA, LNP-s, No Pre serve, 2-Dose Series (XenSource) 09/30/2020,09/09/2020 Covid-19, Mrna, Lnp-s, Pf, B ivalent, 30 Mcg, IM, 12 yrs and above (XenSource) 04/27/2022 H1N1 2009 Influenza, IM 05/30/2009 PPD [...] encounter Miscellaneous Notes * Telephone Encounter - Frances Mills LPN - 08/31/2023 11:02 AM EST Patient just had labs in April, did you want her to have anything additional, please advise. * Telephone Encounter - Kelin Duong OSA - 08/31/2023 8:12 AM EST Pt came in to schedule an acute apt with October. Pt stated it is for a overactive bladder and is asking if she should get any labs done before her apt tomorrow. Please follow up with pt documented in this encounter Plan of Treatment Upcoming Encounters Date Type Department Care Team (Late st Contact Info) Description 09/01/2023 9:40 AM EST Office Visit [facility] [address] [address] [place] [address] Savana Ogden PA-C [address] [place] [address] 10/24/2023 8:00 AM EDT Office Visit [facility] [address] [place] [address] Savana Ogden PA-C [address] [place] [address] Scheduled Procedures Name Priority Associated Diagnoses Date/Ti [...] Additional history exists CKD HGB USE SMARTSET 81746 04/21/202404/21, 02/04/2022, 02/04/2022, Additional history exists CKD PHOS USE SMARTSET 98512 04/21/2024 10/0 11/2022, 11/12/2022, 11/30/2021, Additional history [...] 7:41 AM 05/08/2008 10:46 AM Care Teams Flat Sheet Maker Relationship Specialty Start Date End Date Nikky Hayes DO [address] [place] [address] PCP - General Family Medicine 01/27/16 documented as of this encounter
--- OUTSIDE RECORDS SUMMARY | 2024-02-14 02:46 | External Medical Summary | Summary of Care ---
Author Name Unknown Organization [facility] Address [address] [facility] [place] [address] Phone [phone] Care Team Providers Care Lead Tank Mechanic Name Role Phone Nikky Hayes DO Primary Care Provider Reason for Visit * Reason Onset Date Comments Advice 08/31/2023 Encounter Details Date Type Department Care Team (Late st Contact Info) Description 08/31/2023 Telephone Family Practice [facility] [place] [address] [place] [address] Savana Ogden PA-C [address] [facility] [place] [address] Advice Allergies Active Allergy Reactions Criticality Noted Date Comments Bactrim 11/29/2012 Rash Dust 03/27/2002 Sitagliptin 11/29/2016 Abdominal pain Empagliflozin 03/01/2019 rash Mold 01/01/2003 [place] 03/27/2002 Pollen 03/27/2002 Ranitidine Rash High 11/18/2018 [...] area. 60 g 5 04/12/2023 Active Pen [place] 32G X 4 MM Use as directed. [...] mRNA, LNP-s, No Pre serve, 2-Dose Series (404 Found!) 09/30/2020,09/09/2020 Covid-19, Mrna, Lnp-s, Pf, B ivalent, 30 Mcg, IM, 12 yrs and above (404 Found!) 04/27/2022 H1N1 2009 Influenza, IM 05/30/2009 PPD [...] Miscellaneous Notes * Telephone Encounter - Kelin Duong OSA [...] Description 09/01/2023 9:40 AM EST Office Visit [facility] [address] [place] [address] Savana Ogden PA-C [facility] [place] [address] 10/24/2023 8:00 AM EDT Office Visit [facility] [address] [place] [address] Savana Ogden PA-C [address] [facility] [place] [address] Scheduled Procedures Name Priority Associated Diagnoses Date/Ti [...] Additional history exists CKD HGB USE SMARTSET 36239 04/21/202404/21, 02/04/2022, 02/04/2022, Additional history exists CKD PHOS USE SMARTSET 46365 04/21/2024 10/0 11/2022, 11/12/2022, 11/30/2021, Additional history [...] 7:41 AM 05/08/2008 10:46 AM Care Teams Lead Tank Mechanic Relationship Specialty Start Date End Date Nikky Hayes DO [address] [place] [address] PCP - General Family Medicine 01/27/16 documented as of this encounter
[2024-02-14 05:27] LABS: Calcium 9.7 mg/dl (8.6-10.3); Creatinine Clr Calc Pharmacy 50.1 ml/min; Est GFR (African American) 75.6 ml/min; Est GFR (Non-African American) 65.3 ml/min; Potassium 3.9 mmol/L (3.5-5.1)
[2024-02-14 05:31] LABS: Basophils # (auto) 0.07 K/uL (0.00-0.20); Basophils % (auto) 0.8 %; Eosinophils # (auto) 0.12 K/uL (0.00-0.50); Eosinophils % (auto) 1.4 %; Hematocrit (blood only) 40.3 % (37.0-47.0); Hemoglobin 13.6 g/dl (12.0-16.0); Immature Granulocytes # (auto) 0.02 K/uL (0.01-0.20); Immature Granulocytes % (auto) 0.2 %; Lymphocytes # (auto) 2.48 K/uL (1.20-3.40); Lymphocytes % (auto) 28.5 %; Mean Corpuscular Hemoglobin 29.3 pg (25.0-34.0); Mean Corpuscular Hgb Conc 33.7 g/dL (32.0-36.0); Mean Corpuscular Volume 86.9 fL (80.0-100.0); Mean Platelet Volume 9.7 fL (9.4-12.4); Monocytes # (auto) 0.65 K/uL (0.11-0.59); Monocytes % (auto) 7.5 %; Neutrophils # (auto) 5.37 K/uL (1.40-6.50); Neutrophils % (auto) 61.6 %; Platelet Count 264 K/uL (130-400); RDW Coefficient of Variation 13.2 % (11.5-14.5); RDW Standard Deviation 41.7 fL (36.4-46.3); Red Blood Count 4.64 M/uL (4.20-5.40); White Blood Count 8.71 K/ul (4.8-10.8)
--- NOTE | 2024-02-14 06:25 | Electrocardiogram Report ---
Test Reason : Blood Pressure : / mmHG Vent. Rate : 064 BPM Atrial Rate : 064 BPM P-R Int : 216 ms QRS Dur : 092 ms QT Int : 408 ms P-R-T Axes : 057 052 058 degrees QTc Int : 420 ms Sinus rhythm with 1st degree A-V block Otherwise normal ECG When compared with ECG of 23-DEC-2021 05:43, KS interval has increased Confirmed by Brayan Aquino ([id number]) on 02/14/2024 6:25:20 AM Referred By: Confirmed By:Brayan Aquino
--- NOTE | 2024-02-14 14:03 | Hospitalist Progress Note ---
Date of Service February 14, 2024 Assessment & Plan (1) Delirium: Plan: Metabolic encephalopathy: Likely secondary to complicated UTI Secondary to complicated UTI, no sepsis for now Possible beginning dementia as per family Admitting CT head with no acute finding. Continue with Rocephin 02/12, follow urine culture, gram-negative bacilli and preliminary results. Delirium precaution. Patient's mentation improving, currently calm and oriented x 1. Haldol as needed agitation not responsive to behavioral management Other chronic medical conditions: Continue with/resume home meds as and when able. hypertension, c/w home metoprolol hyperlipidemia, on statin Rx DM2 on oral medications, suboptimal control as of recent outpatient hemoglobin A1c of 13 this month. will need f/u w/ diabetic clinic on dc. PT OT eval DVT prophylaxis. SCDs DNR/dni Text document was generated using Tilt voice recognition software. It may contain grammatical or spelling errors. Kindly contact undersigned for clarification of any documentation item in question. Admission and Anticipated Discharge Date Admission Date: February 13, 2024 Subjective Patient was seen and examined at bedside. Patient was lying in bed, on room air, NAD, oriented x 1, was agitated needing Haldol doses overnight per RN. Patient reports feeling hungry and is ready to eat. Denies febrile illness or chest pain or any pain anywhere else in the body. Physical Exam Physical Exam: GENERAL: oriented x 1, no respiratory distress, on RA SKIN: Normal color, warm HEENT: [place] palpebral conjunctivae, no ptosis, moist buccal mucosa NECK : Supple, no tenderness CHEST : CTA, no tenderness HEART : RRR, no obvious murmurs ABDOMEN: Some distention, nontender EXTREMITIES : No LE swelling/tenderness, no other conspicuous deformities noted NEUROLOGIC :no facial asymmetry, no other gross focality Results & Data Results & Data Vital Signs (Past 12 Hours) Vital Signs Temp Pulse Pulse Resp BP BP Pulse Ox 02/14/24 13:45 92 H 21 96 02/14/24 13:30 77 17 02/14/24 13:21 78 12 02/14/24 13:06 12 02/14/24 12:00 87 17 02/14/24 12:00 157/100 H 02/14/24 12:00 157/100 H 02/14/24 12:00 157/100 H 02/14/24 12:00 157/100 H 02/14/24 11:54 86 18 02/14/24 11:45 79 19 02/14/24 11:30 74 20 96 02/14/24 11:30 166/79 H 02/14/24 11:18 78 20 02/14/24 11:03 76 20 02/14/24 11:01 132/83 02/14/24 10:57 83 20 02/14/24 10:30 132/52 L 02/14/24 10:30 70 18 02/14/24 10:15 65 13 02/14/24 09:21 67 14 02/14/24 09:12 75 15 02/14/24 09:00 170/84 H 02/14/24 09:00 170/84 H 02/14/24 08:57 69 14 02/14/24 08:51 73 15 02/14/24 08:42 74 18 02/14/24 08:34 139/81 02/14/24 08:15 70 11 L 87 L 02/14/24 08:12 76 24 91 02/14/24 08:06 36.8 C 82 19 124/75 96 02/14/24 07:54 78 15 94 02/14/24 07:54 124/75 02/14/24 07:54 124/75 02/14/24 07:54 124/75 02/14/24 07:00 144/107 H 02/14/24 07:00 144/107 H 02/14/24 06:54 93 H 12 02/14/24 06:51 64 13 96 02/14/24 06:42 66 18 95 02/14/24 06:30 130/57 L 02/14/24 06:30 130/57 L 02/14/24 06:30 64 15 94 02/14/24 06:21 64 15 94 02/14/24 06:12 62 13 95 02/14/24 06:03 60 13 95 02/14/24 06:00 130/58 L 02/14/24 06:00 130/58 L 02/14/24 06:00 63 17 130/82 96 02/14/24 05:54 62 17 94 02/14/24 05:51 62 17 95 02/14/24 05:45 60 18 95 02/14/24 05:27 61 15 95 02/14/24 04:42 56 L 17 02/14/24 04:33 62 13 02/14/24 04:30 133/56 L 02/14/24 04:30 133/56 L 02/14/24 04:24 58 L 14 02/14/24 04:12 56 L 14 02/14/24 04:06 59 L 15 02/14/24 04:00 109/50 L 02/14/24 03:36 56 L 12 02/14/24 03:33 58 L 7 L 02/14/24 03:30 112/52 L 02/14/24 03:30 112/52 L 02/14/24 03:15 59 L 14 02/14/24 03:00 76 15 99/63 L 99 02/14/24 02:54 58 L 13 02/14/24 02:42 59 L 14 02/14/24 02:39 59 L 14 02/14/24 02:21 60 14 02/14/24 02:12 97 O2 Del Method 02/14/24 13:45 02/14/24 13:30 02/14/24 13:21 02/14/24 13:06 02/14/24 12:00 02/14/24 12:00 02/14/24 12:00 02/14/24 12:00 02/14/24 12:00 02/14/24 11:54 02/14/24 11:45 02/14/24 11:30 02/14/24 11:30 02/14/24 11:18 02/14/24 11:03 02/14/24 11:01 02/14/24 10:57 02/14/24 10:30 02/14/24 10:30 02/14/24 10:15 02/14/24 09:21 02/14/24 09:12 02/14/24 09:00 02/14/24 09:00 02/14/24 08:57 02/14/24 08:51 02/14/24 08:42 02/14/24 08:34 02/14/24 08:15 02/14/24 08:12 02/14/24 08:06 Room Air 02/14/24 07:54 02/14/24 07:54 02/14/24 07:54 02/14/24 07:54 02/14/24 07:00 02/14/24 07:00 02/14/24 06:54 02/14/24 06:51 02/14/24 06:42 02/14/24 06:30 02/14/24 06:30 02/14/24 06:30 02/14/24 06:21 02/14/24 06:12 02/14/24 06:03 02/14/24 06:00 02/14/24 06:00 02/14/24 06:00 Room Air 02/14/24 05:54 02/14/24 05:51 02/14/24 05:45 02/14/24 05:27 02/14/24 04:42 02/14/24 04:33 02/14/24 04:30 02/14/24 04:30 02/14/24 04:24 02/14/24 04:12 02/14/24 04:06 02/14/24 04:00 02/14/24 03:36 02/14/24 03:33 02/14/24 03:30 02/14/24 03:30 02/14/24 03:15 02/14/24 03:00 Room Air 02/14/24 02:54 02/14/24 02:42 02/14/24 02:39 02/14/24 02:21 02/14/24 02:12
[2024-02-14] MEDS: METOPROLOL TARTRATE 25 MG TAB PO SCH (15:19)
[2024-02-14] MEDS: cefTRIAXone SODIUM 2,000 MG/50 ML BAG IV SCH (20:31)
[2024-02-15 06:43] LABS: Hematocrit (blood only) 43.9 % (37.0-47.0); Hemoglobin 14.6 g/dl (12.0-16.0); Mean Corpuscular Hemoglobin 29.4 pg (25.0-34.0); Mean Corpuscular Hgb Conc 33.3 g/dL (32.0-36.0); Mean Corpuscular Volume 88.3 fL (80.0-100.0); Mean Platelet Volume 9.3 fL (9.4-12.4); Platelet Count 274 K/uL (130-400); RDW Coefficient of Variation 13.2 % (11.5-14.5); Red Blood Count 4.97 M/uL (4.20-5.40); White Blood Count 7.66 K/ul (4.8-10.8)
[2024-02-15 07:01] LABS: Calcium 9.4 mg/dl (8.6-10.3); Creatinine Clr Calc Pharmacy 41.1 ml/min; Est GFR (African American) 59.5 ml/min; Est GFR (Non-African American) 51.3 ml/min; Phosphorus 3.4 mg/dl (2.5-4.9); Potassium 4.7 mmol/L (3.5-5.1)
[2024-02-15] MEDS: ROSUVASTATIN CALCIUM 20 MG TAB PO SCH (08:11)
[2024-02-15] MEDS: ADVANCED PROBIOTIC 625 MG CAPSULE PO SCH (08:11)
[2024-02-15] MEDS: ASPIRIN 81 MG ECTAB PO SCH (08:11)
[2024-02-15] MEDS: PANTOprazole 40 MG TAB PO SCH (08:11)
--- NOTE | 2024-02-15 12:57 | Discharge Summary ---
Date of Service February 15, 2024 Admission HPI Per Admitting Provider History obtained from patient, family, and records. Limited history from patient secondary to agitation. Medical history significant for hypertension, hyperlipidemia, GERD, DM2 on oral medications, possible dementia as per family. Patient drove to PCPs office multiple times this week asking questions and looking confused. Complaining of headache symptoms as per outpatient notes. Patient directed to ER for evaluation. Patient unable to answer questions regarding chest pain, SOB, abdominal, flank pain due to increased agitation. IV ceftriaxone administered at the ER Medical History as above Surgical History : Breast lesion excision, cholecystectomy, BTL, tonsillectomy Family History : Breast cancer, DM, COPD, kidney cancer, stomach cancer Personal/Social history : Non-smoker, occasional EtOH intake, lives home with caregiver support Admission Exam Per Admitting Provider GENERAL: Agitated, no respiratory distress SKIN: Normal color, warm HEENT: [place] palpebral conjunctivae, no ptosis, dry buccal mucosa NECK : Supple, no tenderness CHEST : CTA, no tenderness HEART : RRR, no obvious murmurs ABDOMEN: Some distention, nontender EXTREMITIES : No LE swelling/tenderness, no other conspicuous deformities noted NEUROLOGIC : Agitated, no facial asymmetry, no other gross focality Principal Diagnosis Complicated urinary tract infection Delirium Discharge Exam Constitutional + well hydrated; no acute distress Eyes PERRL, conjunctivae normal, anicteric sclerae ENMT external ear and nose normal, oropharynx normal Respiratory normal respiratory effort, lungs clear to auscultation Cardiovascular Rate/Rhythm: regular rate and regular rhythm Gastrointestinal (Abdomen) normal bowel sounds, soft, nontender, no hepatosplenomegaly Musculoskeletal no cyanosis or clubbing, extremities motor strength 5/5 Neurologic PERRL, EOMI, accommodation nl, no face palsy, no dysarthria Psychiatric Orientation: alert, oriented to person, oriented to place and cooperative; + not oriented to time Discharge Data Allergies Allergy/AdvReac Type Severity Reaction Status Date / Time ranitidine Allergy Intermediate Rash Verified 02/13/24 17:57 sulfamethoxazole Allergy Intermediate Rash Verified 02/13/24 17:57 [From Bactrim] trimethoprim [From Bactrim] Allergy Intermediate Rash Verified 02/13/24 17:57 mold Allergy Unknown Unknown Verified 02/13/24 17:57 pine nut Allergy Unknown Unknown Verified 02/13/24 17:57 atorvastatin AdvReac Intermediate BODY Verified 02/13/24 17:57 ACHES/NAUSEA empagliflozin AdvReac Intermediate Rash Verified 02/13/24 17:57 [From Jardiance] sitagliptin [From Januvia] AdvReac Intermediate Rash Verified 02/13/24 17:57 simvastatin AdvReac Unknown BODY Verified 02/13/24 17:57 ACHES/NAUSEA Consultations 02/13/24 18:43 ED Decision to Admit Stat Ordered Studies 02/13/24 16:31 CT head/brain wo con Stat Hospital Course (1) Delirium: Metabolic encephalopathy: Secondary to complicated UTI Admitting CT head with no acute finding. Urine culture grew pansensitive E coli Was treated with IV ceftriaxone, changed to po cefdinir on discharge Updated son at bedside. Reports cognitive impairment over time. PCP can evaluate for dementia Son making arrangements for increased home care CM notifed to arrange HH Other chronic medical conditions: hypertension, c/w home metoprolol hyperlipidemia, on statin Rx DM2 on oral medications, suboptimal control as of recent outpatient hemoglobin A1c of 13 this month. will need f/u w/ diabetic clinic on dc. PCP to continue to manage Total Time Total Time Spent Total Time Spent (In Minutes): 35 Total Time Includes: Examination of the Patient, Discharge Planning, Medication Reconciliation and Other Discharge Plan Discharge Items Patient Disposition: Home - Home Health Services Reason For Visit: DELIRIUM, COMP UTI Discharge Diagnosis: Complicated urinary tract infection Delirium Activity: Resume your previous activity Non-emergency contact: Primary Care Provider Call non-emergency contact if: you have any medication questions and your symptoms worsen Follow-up/Referrals: Savana Ogden PA-C [Primary Care Provider] - Diet: Carb Consistent or DM2 and Heart Healthy Addtl Attending Provider Instructions: Mrs Shaw You were managed in the hospital for the above listed diagnoses. You are being discharged home on 5 more days of antibiotics to complete treatment. Please ensure follow up with your Primary Doctor It was a pleasure taking care of you. Pending Studies at Discharge: No Stand-Alone Forms: My [facility] [employer], Smoking Cessation Medications and DC Order Prescriptions: New cefdinir 300 mg capsule 300 mg PO BID 5 Days Qty: 10 0RF Continued metformin 500 mg Tablet Extended Release 24 Hr 1,000 mg PO QAM rosuvastatin 20 mg tablet 20 mg PO QAM Probiotic 3 billion cell Capsule 3,000 mmu cells PO QAM multivitamin [Multiple Vitamins] Tablet 1 tab PO QAM Sebree-3 350 mg-235 mg- 90 mg-597 mg Capsule,Delayed Release(Dr/Ec) 1 cap PO QAM omeprazole 20 mg Capsule,Delayed Release(Dr/Ec) 20 mg PO DAILY Rx Instructions: MAY INCREASE TO BID IF NEEDED. aspirin 81 mg Tablet,Delayed Release (Dr/Ec) 81 mg PO DAILY insulin glargine [Lantus Solostar U-100 Insulin] 100 unit/mL (3 mL) insulin pe n 10 unit SUBCUT HS cetirizine [Zyrtec] 10 mg Tablet 10 mg PO QAM calcium carbonate-vitamin D3 [Calcium 600 + D(3)] 600 mg-5 mcg (200 unit) Tablet 1 tab PO DAILY triamcinolone acetonide 0.1 % Cream 1 applic TOPICAL BID PRN (Reason: Skin Irritation) clotrimazole 1 % Cream 1 applic TOPICAL BID PRN (Reason: Skin Irritation) metoprolol tartrate 25 mg tablet 25 mg PO QAM Rx Instructions: PER [facility]--TOTAL DOSE 125 MG, PER EXT MED HX--ONLY MED FILLED IS THE 25 MG TABS. dapagliflozin propanediol [Farxiga] 10 mg tablet 10 mg PO QAM Discharge Orders: Discharge Order (Routine); Ordered 02/15/24 Ordered By: Lucrecia Astorga Admission Data Admit Date/Time: 02/13/24 21:14 Attending Provider: Lucrecia Astorga I. Admit Provider: Jonny Brandon Primary Care Provider: Savana Ogden Other Providers: Dilma Ortega Rishikesh; [facility],Home Healthcare Other Interventions: Discharge Summary Assessment (RN) Last Done: 02/15/24 14:28
== END 2024-02-15 14:43 | disposition home health service (06) | DRG 689 ==
LOC: ED 15:49 → SUATTDRO 21:14 → EDINP 21:14 → INTOOBSV 21:14 → 2W 23:20